=== PATIENT | female | born 1955 | race Caucasian/White ===

== ENCOUNTER → 2017-11-03 08:36 | Outpatient (REF) | payer MEDICARE, SELFPAY ==
[2017-11-03 09:12] LABS: Add Manual Diff / Slide Review NO; Basophils Percent Auto 0.3 % (0-2); Eosinophils Percent Auto 1.1 % (2-4); Hemoglobin 10.7 g/dL (12.0-16.0); Lymphocytes Percent Auto 19.1 % (25-40); Mean Corpuscular HGB Conc 32.4 % (30-36); Mean Corpuscular Hemoglobin 26.5 PG (26-34); Mean Corpuscular Volume 81.7 fL (80-100); Monocytes Percent Auto 6.7 % (3-14); Neutrophils Absolute Auto 6500 /uL (3000-5900); Neutrophils Percent Auto 72.8 % (50-75); Platelet Count 322 X10^3/uL (150-400); Red Blood Cell Count 4.04 X10^6/uL (4.0-5.2); Red Cell Distribution Width 22.2 % (11.6-14.8); White Blood Cell Count 8.9 X10^3/uL (4.5-11.0)
[2017-11-03 09:19] LABS: Hemoglobin A1C% w Est Avg Glu 5.7 % (4.0-6.0)
[2017-11-03 09:37] LABS: Alanine Aminotransferase 20 IU/L (9-52); Albumin Globulin Ratio 1.2 (1.0-2.8); Alkaline Phosphatase 84 U/L (38-126); Aspartate Aminotransferase 23 IU/L (14-36); BUN Creatinine Ratio 36.7 (6-22); Bilirubin Total 0.5 mg/dL (0.2-1.3); Calcium 9.9 mg/dL (8.4-10.2); Estimated Glomerular Filt Rate > 60.0 mL/min (>60); Globulin 3.3 g/dL (1.7-4.1); Glucose 99 mg/dL (80-110); HEMOLYSIS < 15 (0-50); Potassium 4.4 mmol/L (3.4-5.1); Sodium 141 mmol/L (137-145); Total Protein 7.3 g/dL (6.3-8.2)
[2017-11-03 09:40] LABS: Anisocytosis 2+; Hypochromasia 1+
== END ==
LOC: LAB 08:36
PROVIDERS: Visit Provider Nurse Practitioner Family
DX: E11.9 Type 2 diabetes mellitus without complications (principal); F41.9 Anxiety disorder, unspecified
CPT/HCPCS: 36415; 80053; 83036; 85025

== ENCOUNTER → 2017-12-27 14:13 | Outpatient (CLI) | payer MEDICARE, SELFPAY ==
[2017-12-27 15:05] LABS: Hematocrit 40.9 % (36-46); Mean Corpuscular HGB Conc 31.9 % (30-36); Mean Corpuscular Hemoglobin 27.8 PG (26-34); Mean Corpuscular Volume 87.2 fL (80-100); Platelet Count 325 X10^3/uL (150-400); Red Blood Cell Count 4.69 X10^6/uL (4.0-5.2); Red Cell Distribution Width 19.8 % (11.6-14.8); White Blood Cell Count 15.4 X10^3/uL (4.5-11.0)
[2017-12-27 15:37] LABS: Alanine Aminotransferase 36 IU/L (9-52); Albumin 4.6 g/dL (3.5-5.0); Albumin Globulin Ratio 1.4 (1.0-2.8); Alkaline Phosphatase 112 U/L (38-126); Aspartate Aminotransferase 32 IU/L (14-36); BUN Creatinine Ratio 35.7 (6-22); Bilirubin Total 0.8 mg/dL (0.2-1.3); Bilirubin Unconjugated 0.5 mg/dL (0.0-1.1); Blood Urea Nitrogen 25 mg/dL (7-17); Calcium 10.3 mg/dL (8.4-10.2); Carbon Dioxide 36 mmol/L (22-32); Chloride 95 mmol/L (98-107); Estimated Glomerular Filt Rate > 60.0 mL/min (>60); Globulin 3.3 g/dL (1.7-4.1); Glucose 126 mg/dL (80-110); HEMOLYSIS < 15 (0-50); Sodium 139 mmol/L (137-145); Total Protein 7.9 g/dL (6.3-8.2)
[2017-12-27 16:05] LABS: Anisocytosis 2+; Neutrophils Absolute Manual 13398 /uL (3000-5900); Total Cells Counted 100
[2017-12-27 16:08] LABS: Carcinoembryonic Antigen 2.5 ng/mL (0.1-3.0)
== END ==
PROVIDERS: PCP Registered Nurse; Visit Provider Surgery
DX: C18.9 Malignant neoplasm of colon, unspecified (principal)
CPT/HCPCS: 36415; 80048; 80076; 82378; 85025

== ENCOUNTER → 2018-01-05 07:49 | Outpatient (CLI) | payer MEDICARE, SELFPAY | PROVIDERS: PCP Registered Nurse; Visit Provider Surgery | DX: C18.9 Malignant neoplasm of colon, unspecified (principal); Z53.9 Procedure and treatment not carried out, unspecified reason ==

== ENCOUNTER → 2018-01-19 07:55 | Outpatient (REF) | payer MEDICARE, SELFPAY ==
[2018-01-19 09:15] LABS: Add Manual Diff / Slide Review NO; Basophils Percent Auto 0.4 % (0-2); Eosinophils Percent Auto 1.2 % (2-4); Hematocrit 38.5 % (36-46); Hemoglobin 12.7 g/dL (12.0-16.0); Lymphocytes Percent Auto 18.7 % (25-40); Mean Corpuscular Hemoglobin 29.5 PG (26-34); Mean Corpuscular Volume 89.6 fL (80-100); Monocytes Percent Auto 6.5 % (3-14); Neutrophils Absolute Auto 7400 /uL (3000-5900); Neutrophils Percent Auto 73.2 % (50-75); Platelet Count 203 X10^3/uL (150-400); Red Blood Cell Count 4.29 X10^6/uL (4.0-5.2); Red Cell Distribution Width 19.6 % (11.6-14.8); White Blood Cell Count 10.1 X10^3/uL (4.5-11.0)
== END ==
LOC: LAB 07:55
PROVIDERS: PCP Registered Nurse; Visit Provider Nurse Practitioner Family
DX: D72.829 Elevated white blood cell count, unspecified (principal)
CPT/HCPCS: 36415; 85025

== ENCOUNTER → 2018-01-20 16:28 | Outpatient (CLI) | payer MEDICARE, SELFPAY ==
--- NOTE | 2018-01-20 16:31 | DI.RAD.S_ITS ---
PROCEDURE: XR CHEST 2V INDICATIONS: COUGH TECHNIQUE: 2 views of the chest were acquired. COMPARISON: None. FINDINGS: Surgical changes and devices: None. Lungs and pleura: No pleural effusions or pneumothorax. Lungs are clear. Mediastinum: Mediastinal contours are normal. Heart size is normal. Tortuous aorta. Bones and chest wall: No suspicious bony abnormalities. Marked thoracolumbar scoliosis with right lateral fixation through the lumbosacral junction. Severe glenohumeral arthritis bilaterally. Soft tissues appear unremarkable. IMPRESSION: 1. No acute cardiopulmonary abnormality. Source of cough not seen. 2. Severe osteoarthritis both shoulders. Scoliosis with postoperative changes Dictated by: Rogers Hawley M.D. on 01/20/2018 at 17:02 Approved by: Rogers Hawley M.D. on 01/20/2018 at 17:03
== END ==
PROVIDERS: PCP Registered Nurse; Visit Provider Registered Nurse
DX: M19.012 Primary osteoarthritis, left shoulder (principal); M19.011 Primary osteoarthritis, right shoulder; M41.85 Other forms of scoliosis, thoracolumbar region; R05 Cough
CPT/HCPCS: 71046

== ENCOUNTER 2018-02-03 01:27 | Emergency (ER) | payer MEDICARE, SELFPAY ==
[2018-02-03 01:40] VITALS: BP 101/44; PULSE 78; RESP 17; TEMP 36.6; O2SAT 96
--- NOTE | 2018-02-03 02:28 | DI.RAD.S_ITS ---
PROCEDURE: XR CHEST 1V INDICATIONS: weakness TECHNIQUE: One view of the chest was acquired. COMPARISON: [facility], CR, XR CHEST 2V, 01/20/2018, 16:23. FINDINGS: Surgical changes and devices: Thoracolumbar spine fusion. Lungs and pleura: No pleural effusions or pneumothorax. Lungs are clear. Mediastinum: Mediastinal contours appear normal. Heart size is normal. Bones and chest wall: There is scoliosis. Postsurgical changes are seen in thoracolumbar spine. No suspicious bony lesions. Overlying soft tissues appear unremarkable. IMPRESSION: No acute cardiopulmonary disease. Dictated by: Jero Maza M.D. on 02/03/2018 at 8:56 Approved by: Jero Maza M.D. on 02/03/2018 at 8:57
[2018-02-03 03:05] LABS: Add Manual Diff / Slide Review NO; Basophils Percent Auto 0.4 % (0-2); Eosinophils Percent Auto 0.5 % (2-4); Hemoglobin 12.7 g/dL (12.0-16.0); Lymphocytes Percent Auto 14.7 % (25-40); Mean Corpuscular HGB Conc 32.5 % (30-36); Mean Corpuscular Volume 89.3 fL (80-100); Monocytes Percent Auto 6.3 % (3-14); Neutrophils Absolute Auto 8800 /uL (3000-5900); Neutrophils Percent Auto 78.1 % (50-75); Platelet Count 336 X10^3/uL (150-400); Red Blood Cell Count 4.37 X10^6/uL (4.0-5.2); White Blood Cell Count 11.2 X10^3/uL (4.5-11.0)
--- NOTE | 2018-02-03 03:13 | ED.NEUROSD ---
HPI - Neuro Symptoms/Deficit General Chief Complaint: Altered Mental Status Stated Complaint: VISIBLE MENTAL AND PHYSICAL CHANGES Time Seen by Provider: 02/03/18 01:34 Source: patient Mode of arrival: EMS Limitations: no limitations History of Present Illness HPI Narrative: Patient presents to the emergency department at the request of her halfway due to mental status changes this morning. For some reason they attempted to wake her up and she was unarousable initially and eventually upon wakening was speaking nonsensically and not following commands. By the time she arrived here she was at her baseline and has no complaints. She was started on a new medication last night, Lyrica, but is otherwise been well. She denies any chest pain or shortness of breath. She has no headache or stroke-like symptoms such as blurred vision or new weakness Related Data Allergies Allergy/AdvReac Type Severity Reaction Status Date / Time sulfabenzamide Allergy Verified 12/27/17 13:37 Review of Systems Review of Systems All systems reviewed & are unremarkable except as noted in HPI and below Constitutional Denies chills, Denies fever(s), Denies lethargy and Denies weakness Eyes Denies change in vision, Denies eye discharge, Denies irritation and Denies loss of vision ENT Ears, Nose, Mouth, and Throat: Denies change in voice, Denies neck pain and Denies sore throat Cardiovascular Denies chest pain, Denies irregular heart rhythm, Denies lightheadedness, Denies palpitations, Denies dyspnea, Denies dyspnea on exertion and Denies orthopnea Respiratory Denies cough, Denies dyspnea, Denies dyspnea on exertion and Denies wheezing Gastrointestinal Gastrointestinal: Denies abdominal pain, Denies change in bowel habits, Denies diarrhea, Denies nausea and Denies vomiting Genitourinary Denies hematuria, Denies flank pain, Denies urinary incontinence and Denies urinary urgency Musculoskeletal Denies neck pain Integumentary/Breasts Denies pruritus, Denies erythema, Denies rash and Denies wounds Neurologic Denies confusion, Denies loss of vision and Denies weakness Psychiatric Denies anxiety, Denies confusion, Denies depression, Denies homicidal ideation and Denies suicidal ideation Endocrine Denies palpitations Hematologic/Lymphatic Denies easy bruising Allergic/Immunologic Denies wheezing [facility] Medical History Arthritis of knee (Chronic) Back pain (Chronic) Scoliosis (Chronic) Social History housing: assisted living facility Smoking Status: Unknown if ever smoked Exam Narrative Exam Narrative: Pleasant 62F is awake and alert, but confused about location. Initial Vital Signs Initial Vital Signs: Vital Signs Temperature 97.8 F 02/03/18 01:40 Pulse Rate 78 02/03/18 01:40 Respiratory Rate 17 02/03/18 01:40 Blood Pressure 101/44 L 02/03/18 01:40 Pulse Oximetry 96 02/03/18 01:40 Const General: cooperative and comfortable Nutritional Appearance: well nourished Orientation: alert, awake, oriented to person, oriented to time and confused HENMT Head: normocephalic and atraumatic Ears: external ears normal and TM's normal bilaterally Nose: external nose normal and No nasal discharge Face and sinus: sinuses nontender, face symmetric, no sinus tenderness and No dry mucous membranes Mouth: oral mucosae normal and moist mucous membranes Teeth and gingiva: poor dentition Throat: tonsils normal and uvula midline Eyes General: appearance normal, both eyes and all related structures Eyelids: eyelids normal Conjunctivae: conjunctivae normal Sclera: sclerae normal Pupils: PERRL EOM: EOM intact bilaterally Neck Neck: normal visual inspection, trachea midline, No lymphadenopathy, No midline deformity and No JVD Lymphatic: No lymphedema Chest Chest: normal inspection of the chest Resp Effort & Inspection: normal respiratory effort, able to speak in complete sentences, no respiratory distress and no use of accessory muscles Auscultation: clear to auscultation bilaterally, no rales, no rhonchi and no wheezes Cardio Rate: regular rate Rhythm: regular rhythm Heart Sounds: no click, no gallops, no murmurs and no rubs Pulses: normal peripheral pulses GI Inspection: non-distended Palpation: soft, no hepatosplenomegaly, No guarding, No pulsatile mass and No tender Auscultation: normal bowel sounds Back/Spine/Pelvis Back: No CVA tenderness Cervical Spine: cervical ROM normal and No pain with cervical ROM Thoracic/Lumbar Spine: thoracic and lumbar spine normal to inspection Skin General: no rashes or lesions noted, No jaundice and No petechiae Neuro General: alert and awake Speech: speech normal Other: 4/5 strength in RUE, RLE which patient states is chronic Extrem General: full ROM, no clubbing, cyanosis or edema, no pedal edema and no calf tenderness Psych Appearance: disheveled Mental Status: mental status grossly normal Attitude: cooperative Thought Content: normal and suicidality Judgment: judgment good Course Orders Ordered: ED Orders 02/03/18 02:28 XR chest 1V Stat 02/03/18 02:48 Basic Metabolic Panel Stat Complete Blood Count AUTO DIFF Stat Procalcitonin Stat 02/03/18 03:35 CT head/brain wo con Stat Vital Signs - 8 hr 02/03/18 01:40 02/03/18 04:59 Temperature 97.8 F 97.8 F Pulse Rate 78 92 H Respiratory Rate 17 16 Blood Pressure 101/44 L Pulse Oximetry 96 MDM - Neuro Symptoms/Deficit Medical Records Attestation: I reviewed the patient's medical records. Lab Data Result diagrams: 02/03/18 02:48 02/03/18 02:48 Lab Results 02/03/18 02/03/18 02/03/18 Range/Units 02:48 02:48 02:48 WBC 11.2 H (4.5-11.0) X10^3/uL RBC 4.37 (4.0-5.2) X10^6/uL Hgb 12.7 (12.0-16.0) g/dL Hct 39.0 (36-46) % MCV 89.3 (80-100) fL MCH 29.0 (26-34) PG MCHC 32.5 (30-36) % RDW 18.0 H (11.6-14.8) % Plt Count 336 (150-400) X10^3/uL Neut % (Auto) 78.1 H (50-75) % Lymph % (Auto) 14.7 L (25-40) % [place] % (Auto) 6.3 (3-14) % Eos % (Auto) 0.5 L (2-4) % Baso % (Auto) 0.4 (0-2) % Neut # (Auto) 8800 H (4901-1639) /uL Sodium 139 (137-145) mmol/L Potassium 4.7 (3.4-5.1) mmol/L Chloride 95 L (98-107) mmol/L Carbon Dioxide 34 H (22-32) mmol/L BUN 20 H (7-17) mg/dL Creatinine 0.70 (0.52-1.04) mg/dL Estimated GFR > 60.0 (>60) mL/min BUN/Creatinine Ratio 28.6 H (6-22) Glucose 128 H (80-110) mg/dL Calcium 9.3 (8.4-10.2) mg/dL Procalcitonin < 0.05 (<0.5) ng/mL MDM Narrative Medical decision making narrative: Patient is had returned to her apparent baseline by the arrival at our department. She was administered a new medication and took her 1st dose last night which seems a likely contributor her. Of confusion upon waking. Discharge Plan Departure Patient Disposition: Home Clinical Impression: Episode of unresponsiveness Instructions: Taking Prescription Medications Activity Restrictions/Additional Instructions: *You have been diagnosed with [ unresponsive episode, resolved ] *What to do: * continues to take medications as directed *Follow up with your primary care provider in 2-3 days, call for an appointment. Let them know you were seen in the Emergency Department and that we ask that you be seen in follow up *Return to ER if you should have any new, worsening or concerning symptoms
[2018-02-03 03:32] LABS: BUN Creatinine Ratio 28.6 (6-22); Blood Urea Nitrogen 20 mg/dL (7-17); Calcium 9.3 mg/dL (8.4-10.2); Carbon Dioxide 34 mmol/L (22-32); Chloride 95 mmol/L (98-107); Estimated Glomerular Filt Rate > 60.0 mL/min (>60); Glucose 128 mg/dL (80-110); Sodium 139 mmol/L (137-145)
--- NOTE | 2018-02-03 03:35 | DI.CT.S_ITS ---
PROCEDURE: CT HEAD/BRAIN WO CON INDICATIONS: right upper and lower extremety weakness TECHNIQUE: Noncontrast 4.5 mm thick angled axial sections acquired from the foramen magnum to the vertex, with coronal and sagittal reformats. For radiation dose reduction, the following was used: automated exposure control, adjustment of mA and/or kV according to patient size. COMPARISON: None. FINDINGS: Image quality: Excellent. CSF spaces: Basal cisterns are patent. No extra-axial fluid collections. The ventricles are symmetric in size and shape. Brain: No intracranial bleeds or masses. There is cerebral volume loss for age, with resultant ventricular and sulcal prominence. There are periventricular and deep white matter chronic small vessel ischemic changes. 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 Old left putamen lacunar infarct. There is intracranial internal carotid artery atherosclerosis. Skull and face: Calvarium and visualized facial bones appear intact, without suspicious lesions. Sinuses: Visualized sinuses and mastoids are clear. IMPRESSION: No acute intracranial disease process. Dictated by: Emily Benedict MD, PhD on 02/03/2018 at 7:06 Approved by: Emily Benedict MD, PhD on 02/03/2018 at 7:08
[2018-02-03 03:37] LABS: HEMOLYSIS 74 (0-50)
[2018-02-03 03:38] LABS: Potassium 4.7 mmol/L (3.4-5.1)
[2018-02-03 03:40] LABS: Procalcitonin < 0.05 ng/mL (<0.5)
[2018-02-03 04:59] VITALS: PULSE 92; RESP 16; TEMP 36.6
[2018-02-03 05:00] VITALS: BP 109/73; PULSE 79; RESP 17; O2SAT 99
[2018-02-03 06:38] LABS: RBC Urine 0-1/HPF (0-5/HPF); WBC Urine 5-10/HPF (0-5/HPF)
[2018-02-03 06:39] LABS: Bacteria Urine Few (2-10); Hyaline Casts Urine 0-1/LPF; Mucus Urine 1+ (Negative); Squamous Epithelial Cell Urine 1-5 /HPF
[2018-02-03 06:40] LABS: Culture Indicated Urine Specimen Cultured
[2018-02-03] MEDS: NITROFURANTOIN 100MG PREPACK 1 BOTTLE MISC (07:02)
== END 2018-02-03 07:09 | disposition home or self-care (01) ==
PROVIDERS: Emergency Provider Emergency Medicine; PCP Registered Nurse
DX: R41.89 Other symptoms and signs involving cognitive functions and awareness (principal)
CPT/HCPCS: 36591; 70450; 71045; 80048; 81003; 81015; 84145; 85025; 87086; 99282; 99284

== ENCOUNTER → 2018-02-16 09:39 | Outpatient (REF) | payer MEDICARE, SELFPAY ==
[2018-02-16 10:41] LABS: Add Manual Diff / Slide Review NO; Basophils Percent Auto 0.4 % (0-2); Eosinophils Percent Auto 1.1 % (2-4); Hematocrit 37.5 % (36-46); Hemoglobin 12.2 g/dL (12.0-16.0); Lymphocytes Percent Auto 24.7 % (25-40); Mean Corpuscular HGB Conc 32.5 % (30-36); Mean Corpuscular Hemoglobin 29.6 PG (26-34); Mean Corpuscular Volume 91.3 fL (80-100); Monocytes Percent Auto 7.6 % (3-14); Neutrophils Absolute Auto 4300 /uL (3000-5900); Neutrophils Percent Auto 66.2 % (50-75); Platelet Count 215 X10^3/uL (150-400); Red Blood Cell Count 4.11 X10^6/uL (4.0-5.2); Red Cell Distribution Width 16.8 % (11.6-14.8); White Blood Cell Count 6.4 X10^3/uL (4.5-11.0)
== END ==
LOC: LAB 09:39
PROVIDERS: PCP Registered Nurse; Visit Provider Nurse Practitioner Family
DX: D72.829 Elevated white blood cell count, unspecified (principal)
CPT/HCPCS: 36415; 85025

== ENCOUNTER 2018-03-14 10:42 | Inpatient (IN) | payer MEDICARE, OTHER, SELFPAY ==
[2018-03-14] VITALS (7 sets, daily range): BP systolic 87–127; BP diastolic 56–79; PULSE 58–70; RESP 15–27; TEMP 36.2–36.3; O2SAT 89–96; BMI 25.9
--- NOTE | 2018-03-14 11:22 | DI.RAD.S_ITS ---
PROCEDURE: XR CHEST 1V INDICATIONS: SHORTNESS OF BREATH TECHNIQUE: One view of the chest was acquired. COMPARISON: [facility], CR, XR CHEST 1V, 02/03/2018, 2:32. FINDINGS: Surgical changes and devices: Surgical changes of the thoracolumbar spine are noted. Lungs and pleura: No pleural effusions or pneumothorax. Lungs are clear. Mediastinum: Mediastinal contours appear normal. Heart size is normal. Bones and chest wall: No suspicious bony lesions. There is prominent levoconvex curvature of the thoracic spine.degenerative changes of the bilateral shoulders and spine are not adequately characterized. Overlying soft tissues appear unremarkable. IMPRESSION: Stable chest. No acute cardiopulmonary process is evident. Dictated by: Ignacio An M.D. on 03/14/2018 at 10:48 Approved by: Ignacio An M.D. on 03/14/2018 at 10:55
--- NOTE | 2018-03-14 11:33 | ED_ITS ---
HPI - Weakness General Chief complaint: Weakness Stated complaint: Shortness breath, confusion, low oxygen Time Seen by Provider: 03/14/18 11:15 Source: patient Mode of arrival: wheelchair History of Present Illness HPI Narrative: Patient is a 63-year-old female presenting with increasing shortness of breath. She resides at [facility] facility they state that her oxygen level was not above 81%. She is 89% here on room air. She says she has had shortness of breath possibly the last week she denies any cough she has some inside ?pain on the right side which she cannot describe. No abdominal pain no nausea or vomiting. She has not had fever or chills. She overall feels like over the last week he has been weak and tired. According to her sister she has had altered mental status ongoing for some time and it does progressively seem to be getting worse. Her sister is not currently here but I have spoken to her on the phone. MD Complaint: generalized weakness Related Data Home Medications Medication Instructions Recorded Confirmed Saccharomyces boulardii [Florastor] 250 mg PO BID 03/14/18 03/14/18 acetaminophen 650 mg PO Q6H PRN 03/14/18 03/14/18 acetaminophen-codeine 1 tab PO TID PRN 03/14/18 03/14/18 aspirin 1 tab PO DAILY 03/14/18 03/14/18 atorvastatin 40 mg PO QPM 03/14/18 03/14/18 buspirone 15 mg PO TID 03/14/18 03/14/18 lidocaine 2 patch TOPICAL DAILY 03/14/18 03/14/18 lorazepam 1 tab PO Q6H 03/14/18 03/14/18 magnesium hydroxide [Milk of 30 ml PO DAILY 03/14/18 03/14/18 Magnesia] melatonin 3 mg PO BEDTIME PRN 03/14/18 03/14/18 metoprolol succinate 25 mg PO DAILY 03/14/18 03/14/18 multivitamin 1 tab PO DAILY 03/14/18 03/14/18 nystatin 1 applic TOPICAL BID 03/14/18 03/14/18 paroxetine HCl 10 mg PO DAILY 03/14/18 03/14/18 pregabalin [Lyrica] 75 mg PO BID 03/14/18 03/14/18 sennosides [senna] 8.6 mg PO BEDTIME 03/14/18 03/14/18 tizanidine 4 mg PO Q6H PRN 03/14/18 03/14/18 trazodone 100 mg PO BEDTIME PRN 03/14/18 03/14/18 Allergies Allergy/AdvReac Type Severity Reaction Status Date / Time sulfabenzamide Allergy Verified 03/14/18 10:50 Review of Systems Review of Systems All systems reviewed & are unremarkable except as noted in HPI and below Constitutional Denies chills, Denies fever(s), Denies lethargy and Reports weakness Cardiovascular Reports chest pain Respiratory Reports as per HPI Gastrointestinal Gastrointestinal: Denies abdominal pain, Denies change in bowel habits, Denies diarrhea, Denies nausea and Denies vomiting Genitourinary Denies hematuria, Denies flank pain, Denies urinary incontinence and Denies urinary urgency Musculoskeletal Denies back pain, Denies muscle weakness, Denies numbness and Denies tingling Integumentary/Breasts Denies pruritus, Denies erythema, Denies rash and Denies wounds Neurologic Denies numbness, Denies tingling and Reports weakness [facility] Social History housing: assisted living facility Smoking Status: Unknown if ever smoked Exam Initial Vital Signs Initial Vital Signs: Vital Signs Temperature 97.1 F L 03/14/18 10:51 Pulse Rate 63 03/14/18 10:51 Respiratory Rate 15 03/14/18 10:51 Blood Pressure 127/79 03/14/18 10:51 Pulse Oximetry 89 L 03/14/18 10:51 Const General: cooperative, comfortable and ill appearing (Chronically ill) Nutritional Appearance: average body habitus Orientation: alert, awake and oriented x3 HENMT Head: normal to inspection and normocephalic Nose: external nose normal Eyes General: appearance normal, both eyes and all related structures Neck Neck: normal visual inspection, trachea midline, No lymphadenopathy, No midline deformity and No JVD Lymphatic: No lymphedema Resp Effort & Inspection: normal respiratory effort, able to speak in complete sentences, no respiratory distress and no use of accessory muscles Auscultation: clear to auscultation bilaterally, no rales, no rhonchi and no wheezes Cardio Rate: regular rate Rhythm: regular rhythm Heart Sounds: no click, no gallops, no murmurs and no rubs Pulses: normal peripheral pulses Skin General: no rashes or lesions noted, No jaundice and No petechiae Neuro General: alert, awake and oriented x3 Cranial Nerves: CN's II-XI intact bilaterally and other (Right-sided facial droop, old her sister) Course Orders Ordered: ED Orders 03/14/18 11:15 Urine Culture Stat Urine Microscopic Stat 03/14/18 11:21 Consult to Respiratory Therapy Evaluate & Treat 03/14/18 11:22 XR chest 1V Stat 03/14/18 11:25 EKG-12 Lead Stat 03/14/18 11:45 B Type Natriuretic Peptide Stat Basic Metabolic Panel Stat Complete Blood Count AUTO DIFF Stat D Dimer Stat Lactate (Lactic Acid) Stat Procalcitonin Stat Troponin & CK Cardiac Panel Stat 03/14/18 12:25 Blood Culture Stat 03/14/18 12:56 CT angio chest PE protocol Stat 03/14/18 13:39 Arterial Blood Gas Stat Sodium Chloride (Normal Saline 0.9%) 1,000 mls @ 125 mls/hr IV CONT FIDELINA Last Admin: 03/14/18 15:23 Dose: 125 mls/hr Ceftriaxone Sodium/Dextrose (Rocephin) 1 gm in 50 mls @ 100 mls/hr IV NOW ONE Stop: 03/14/18 16:17 Ondansetron HCl (Zofran) 4 mg IV Q4HR PRN PRN Reason: Nausea And Vomiting Vital Signs - 8 hr 03/14/18 10:51 03/14/18 10:56 03/14/18 12:29 Temperature 97.1 F L Pulse Rate 63 62 Respiratory Rate 15 17 Blood Pressure 127/79 Blood Pressure [Right Arm] 97/66 Pulse Oximetry 89 L 96 96 03/14/18 14:01 03/14/18 14:57 03/14/18 15:47 Temperature Pulse Rate 60 70 58 L Respiratory Rate 15 27 H 16 Blood Pressure Blood Pressure [Right Arm] 87/63 L 100/69 114/71 Pulse Oximetry 92 92 96 MDM - Weakness Lab Data Attestation: I reviewed the patient's lab results. Result diagrams: 03/14/18 11:45 03/14/18 11:45 Lab Results 03/14/18 03/14/18 03/14/18 Range/Units 11:15 11:45 11:45 WBC 8.7 (4.5-11.0) X10^3/uL RBC 4.30 (4.0-5.2) X10^6/uL Hgb 12.9 (12.0-16.0) g/dL Hct 39.4 (36-46) % MCV 91.6 (80-100) fL MCH 30.0 (26-34) PG MCHC 32.7 (30-36) % RDW 15.9 H (11.6-14.8) % Plt Count 240 (150-400) X10^3/uL Neut % (Auto) 73.8 (50-75) % Lymph % (Auto) 18.9 L (25-40) % [place] % (Auto) 6.0 (3-14) % Eos % (Auto) 1.0 L (2-4) % Baso % (Auto) 0.3 (0-2) % Neut # (Auto) 6400 H (8630-7863) /uL D-Dimer (<230) ng/mL ABG pH (7.35-7.45) ABG pCO2 (35-45) mmHg ABG pO2 (80-105) mmHg ABG HCO3 (23-27) mmol/L ABG Total CO2 (23-27) mmol/L ABG O2 Saturation (95-100) % ABG Base Excess (-2-3) mmol/L FiO2 Sodium 144 (137-145) mmol/L Potassium 5.0 (3.4-5.1) mmol/L Chloride 96 L (98-107) mmol/L Carbon Dioxide 41 H* (22-32) mmol/L BUN 17 (7-17) mg/dL Creatinine 0.60 (0.52-1.04) mg/dL Estimated GFR > 60.0 (>60) mL/min BUN/Creatinine Ratio 28.3 H (6-22) Glucose 101 (80-110) mg/dL Lactate (0.7-2.1) mmol/L Calcium 9.3 (8.4-10.2) mg/dL Total Creatine Kinase 22 L (30-135) U/L CK-MB (CK-2) TNP CK-MB (CK-2) Rel Index TNP Troponin I 0.013 (0.01-0.034) ng/mL B-Natriuretic Peptide 167.0 H (<100) Procalcitonin (<0.5) ng/mL Urine RBC None seen (0-5/HPF) Urine WBC 1-5/hpf (0-5/HPF) Ur Squamous Epith Cells 0-1 /hpf Urine Bacteria Few (2-10) H (None) Ur Culture Indicated? Specimen cultured Micro UA Comment Not Reportable 03/14/18 03/14/18 03/14/18 Range/Units 11:45 11:45 11:45 WBC (4.5-11.0) X10^3/uL RBC (4.0-5.2) X10^6/uL Hgb (12.0-16.0) g/dL Hct (36-46) % MCV (80-100) fL MCH (26-34) PG MCHC (30-36) % RDW (11.6-14.8) % Plt Count (150-400) X10^3/uL Neut % (Auto) (50-75) % Lymph % (Auto) (25-40) % [place] % (Auto) (3-14) % Eos % (Auto) (2-4) % Baso % (Auto) (0-2) % Neut # (Auto) (0841-8422) /uL D-Dimer 349 H (<230) ng/mL ABG pH (7.35-7.45) ABG pCO2 (35-45) mmHg ABG pO2 (80-105) mmHg ABG HCO3 (23-27) mmol/L ABG Total CO2 (23-27) mmol/L ABG O2 Saturation (95-100) % ABG Base Excess (-2-3) mmol/L FiO2 Sodium (137-145) mmol/L Potassium (3.4-5.1) mmol/L Chloride (98-107) mmol/L Carbon Dioxide (22-32) mmol/L BUN (7-17) mg/dL Creatinine (0.52-1.04) mg/dL Estimated GFR (>60) mL/min BUN/Creatinine Ratio (6-22) Glucose (80-110) mg/dL Lactate 1.2 (0.7-2.1) mmol/L Calcium (8.4-10.2) mg/dL Total Creatine Kinase (30-135) U/L CK-MB (CK-2) CK-MB (CK-2) Rel Index Troponin I (0.01-0.034) ng/mL B-Natriuretic Peptide (<100) Procalcitonin < 0.05 (<0.5) ng/mL Urine RBC (0-5/HPF) Urine WBC (0-5/HPF) Ur Squamous Epith Cells Urine Bacteria (None) Ur Culture Indicated? Micro UA Comment 03/14/18 Range/Units 13:39 WBC (4.5-11.0) X10^3/uL RBC (4.0-5.2) X10^6/uL Hgb (12.0-16.0) g/dL Hct (36-46) % MCV (80-100) fL MCH (26-34) PG MCHC (30-36) % RDW (11.6-14.8) % Plt Count (150-400) X10^3/uL Neut % (Auto) (50-75) % Lymph % (Auto) (25-40) % [place] % (Auto) (3-14) % Eos % (Auto) (2-4) % Baso % (Auto) (0-2) % Neut # (Auto) (2061-5703) /uL D-Dimer (<230) ng/mL ABG pH 7.37 (7.35-7.45) ABG pCO2 70.4 H* (35-45) mmHg ABG pO2 61 L (80-105) mmHg ABG HCO3 41 H (23-27) mmol/L ABG Total CO2 43 H (23-27) mmol/L ABG O2 Saturation 89 L (95-100) % ABG Base Excess 15.0 H (-2-3) mmol/L FiO2 0.23 Sodium (137-145) mmol/L Potassium (3.4-5.1) mmol/L Chloride (98-107) mmol/L Carbon Dioxide (22-32) mmol/L BUN (7-17) mg/dL Creatinine (0.52-1.04) mg/dL Estimated GFR (>60) mL/min BUN/Creatinine Ratio (6-22) Glucose (80-110) mg/dL Lactate (0.7-2.1) mmol/L Calcium (8.4-10.2) mg/dL Total Creatine Kinase (30-135) U/L CK-MB (CK-2) CK-MB (CK-2) Rel Index Troponin I (0.01-0.034) ng/mL B-Natriuretic Peptide (<100) Procalcitonin (<0.5) ng/mL Urine RBC (0-5/HPF) Urine WBC (0-5/HPF) Ur Squamous Epith Cells Urine Bacteria (None) Ur Culture Indicated? Micro UA Comment Urine Dip Bedside Urine Glucose Negative Bedside Urine Bilirubin - Negative Bedside Urine Ketone - Negative Urine Specific [place] 1.015 Bedside Urine Occult Blood - Negative Bedside Urine pH 6.5 Bedside Urine Protein - Negative Bedside Urine Urobilinogen - Negative Bedside Urine Nitrite - Negative Bedside Urine Leukocytes + 70 Esterase ABG Data Attestation: I personally reviewed and interpreted this ABG as follows: MDM Narrative Medical decision making narrative: Bicarb on electrolytes is noted to be elevated today 41 previously was 34. She is requiring 1-2 L of oxygen. PE study is negative no pneumonia. ABG does confirm hypercapnia, pH is close to normal 7.37 I do think this is acute on chronic. Unknown what the reasoning is. Sister also states that she has been on oxygen in the past. I have tried to take patient off oxygen she desats quickly into the 70s and takes a while to come back. She will require home oxygen. Thought about BiPAP however patient is awake and alert and toxin she is mildly confused. UTI also noted-given 1 dose of Rocephin Discussion with Dr. Mccarthy. Patient will be placed in observation Discharge Plan Departure Patient Disposition: Admitted as Observation Clinical Impression: Acute on chronic respiratory failure with hypoxia and hypercapnia, UTI ( urinary tract infection) Admit Date/Time: 03/14/18 15:27 Admit Provider: Marco Mccarthy
[2018-03-14 11:43] LABS: RBC Urine None Seen (0-5/HPF)
[2018-03-14 11:59] LABS: Bacteria Urine Few (2-10); Culture Indicated Urine Specimen Cultured; Squamous Epithelial Cell Urine 0-1 /HPF; WBC Urine 1-5/HPF (0-5/HPF)
[2018-03-14 12:06] LABS: Add Manual Diff / Slide Review NO; Basophils Percent Auto 0.3 % (0-2); Hematocrit 39.4 % (36-46); Hemoglobin 12.9 g/dL (12.0-16.0); Lymphocytes Percent Auto 18.9 % (25-40); Mean Corpuscular HGB Conc 32.7 % (30-36); Mean Corpuscular Volume 91.6 fL (80-100); Neutrophils Absolute Auto 6400 /uL (3000-5900); Neutrophils Percent Auto 73.8 % (50-75); Platelet Count 240 X10^3/uL (150-400); Red Cell Distribution Width 15.9 % (11.6-14.8); White Blood Cell Count 8.7 X10^3/uL (4.5-11.0)
[2018-03-14 12:21] LABS: D Dimer 349 ng/mL (<230)
[2018-03-14 12:32] LABS: BUN Creatinine Ratio 28.3 (6-22); Blood Urea Nitrogen 17 mg/dL (7-17); Calcium 9.3 mg/dL (8.4-10.2); Chloride 96 mmol/L (98-107); Creatine Kinase 22 U/L (30-135); Estimated Glomerular Filt Rate > 60.0 mL/min (>60); Glucose 101 mg/dL (80-110); Lactate (Lactic Acid) 1.2 mmol/L (0.7-2.1); Sodium 144 mmol/L (137-145)
[2018-03-14 12:34] LABS: HEMOLYSIS 72 (0-50)
[2018-03-14 12:41] LABS: Troponin I 0.013 ng/mL (0.01-0.034)
[2018-03-14 12:45] LABS: Carbon Dioxide 41 mmol/L (22-32)
--- NOTE | 2018-03-14 12:56 | DI.CT.S_ITS ---
PROCEDURE: CT ANGIO CHEST PE PROTOCOL INDICATIONS: hypoxia TECHNIQUE: After the administration of intravenous contrast, 2 mm thick sections acquired from the pulmonary apices to the posterior costophrenic angles. 3-dimensional maximum intensity projection (MIP) coronal and sagittal reformats were then acquired through the thorax. For radiation dose reduction, the following was used: automated exposure control, adjustment of mA and/or kV according to patient size. COMPARISON: [facility], , XR CHEST 1V, 03/14/2018, 11:36. FINDINGS: Image quality: There is streak artifact seen associated with this patient's spinal fixation hardware. Pulmonary arteries: Pulmonary arteries are normal in size, and demonstrate no intraluminal filling defects to suggest central pulmonary embolism. Lungs and pleura: There is mild dependent atelectasis. There is a 3 mm right upper lobe pulmonary nodule seen, as on series 4 image 18. No pleural effusions or pneumothorax. Central and peripheral airways are patent. Mediastinum: Heart size is normal, without pericardial effusion. No mediastinal or hilar adenopathy. Thoracic aorta is normal in caliber and enhancement. Esophagus is normal in caliber, without hiatal hernia. Bones and chest wall: No suspicious bony lesions. Ribs and thoracic spine appear intact throughout. Thyroid gland demonstrates no significant CT abnormality. No axillary or supraclavicular adenopathy. Thoracolumbar fixation hardware is partially seen. S-shaped scoliotic curvature is seen. Bony degenerative changes are seen, particularly affecting the shoulders. Abdomen: Visualized upper abdominal solid organs appear normal in the early arterial phase of enhancement. IMPRESSION: Negative for pulmonary embolism. There is a 3 mm right upper lobe pulmonary nodule seen. For a nodule of this size, no specific imaging followup is recommended. However, attention should be paid to this nodule on any future followup study through the region. Incidental note is made of: Thoracolumbar fixation hardware S-shaped scoliotic curvature Focal prominent shoulder degenerative change. Dictated by: Vikas Stanley M.D. on 03/14/2018 at 12:09 Approved by: Vikas Stanley M.D. on 03/14/2018 at 12:12
[2018-03-14 13:19] LABS: Procalcitonin < 0.05 ng/mL (<0.5)
--- NOTE | 2018-03-14 14:01 | PC.NURSE ---
Doctor took patient off oxygen. Went to 77% on room air. Placed her on 4.5 L nasal cannula and she went back to 97% after approx 2-3 min of oxygen.
[2018-03-14 14:06] LABS: HCO3 ABG 41 mmol/L (23-27); PCO2 ABG 70.4 mmHg (35-45); PO2 ABG 61 mmHg (80-105); TCO2 ABG 43 mmol/L (23-27); pH ABG 7.37 (7.35-7.45)
[2018-03-14 14:07] LABS: Fractionated Inspired Oxygen 0.23; Oxygen Saturation ABG 89 % (95-100)
[2018-03-14] MEDS: SODIUM CHLORIDE 0.9% 1,000 ML 125 ML IV (15:23)
[2018-03-14] MEDS: CEFTRIAXONE 1 GM/50 ML FROZ.PIGGY IV (15:53)
--- NOTE | 2018-03-14 17:59 | P.HP_ITS ---
History of Present Illness Date Patient Seen: 03/14/18 Time Patient Seen: 17:44 Chief complaint: Shortness breath, confusion, low oxygen Narrative: Patient is a very pleasant 63 years of age female that resides at a local assisted living facility. Patient was brought to the emergency room with chief complaint of shortness of breath. Patient is a bit vague is as to how long she has been having this shortness of breath but appears to be over the last several days. Patient did know the year is 2007 and the executive vice president of sales is Ashish Doll. For the most part patient appears to be a reliable historian. No recent nausea no weakness to extremities that appear new. Patient does note that she has difficulty with ambulating due to inability to control her lower extremities. The ER physician notes patient with a blood gas with a pCO2 of 70. She was also hypoxemic. Fortunately 1 L of nasal cannula oxygen flow appeared to stabilize her readily in the ER. I was requested to admit the patient for further workup regarding her hypercapnic hypoxemic respiratory failure. Patient History Comment: Past medical history includes the following Patient is not normally on oxygen therapy in home setting. Patient does have history of sleep apnea on CPAP mask for the last 2-3 years. Patient with history of hypertensive encephalopathy. Most recent imaging of the brain with a CT in January 2018 notes multiple lacunar infarcts with vascular disease. Patient also with history of hypertension. Patient denies prior history of cancer Diabetes atherosclerotic heart disease myocardial infarction Past surgical history Back surgery about 10 years ago Social history Patient lives at assisted living facility for the past 1 month. Patient notes she is trying to sell her home and her sisters are helping her do so. Patient has no smoking history she is a nonalcoholic Family history patient notes her mother may have history of stroke. No history of cancer in the family. Family & Social History Tobacco & Substance use: Smoking Status Unknown if ever smoked Substance Use Type does not use Meds Home Medications Medication Instructions Recorded Confirmed Type Saccharomyces boulardii [Florastor] 250 mg PO BID 03/14/18 03/14/18 History acetaminophen 650 mg PO Q6H PRN 03/14/18 03/14/18 History acetaminophen-codeine 1 tab PO TID PRN 03/14/18 03/14/18 History aspirin 1 tab PO DAILY 03/14/18 03/14/18 History atorvastatin 40 mg PO QPM 03/14/18 03/14/18 History buspirone 15 mg PO TID 03/14/18 03/14/18 History lidocaine 2 patch TOPICAL DAILY 03/14/18 03/14/18 History lorazepam 1 tab PO Q6H 03/14/18 03/14/18 History magnesium hydroxide [Milk of 30 ml PO DAILY 03/14/18 03/14/18 History Magnesia] melatonin 3 mg PO BEDTIME PRN 03/14/18 03/14/18 History metoprolol succinate 25 mg PO DAILY 03/14/18 03/14/18 History multivitamin 1 tab PO DAILY 03/14/18 03/14/18 History nystatin 1 applic TOPICAL BID 03/14/18 03/14/18 History paroxetine HCl 10 mg PO DAILY 03/14/18 03/14/18 History pregabalin [Lyrica] 75 mg PO BID 03/14/18 03/14/18 History sennosides [senna] 8.6 mg PO BEDTIME 03/14/18 03/14/18 History tizanidine 4 mg PO Q6H PRN 03/14/18 03/14/18 History trazodone 100 mg PO BEDTIME PRN 03/14/18 03/14/18 History Allergies Allergy/AdvReac Type Severity Reaction Status Date / Time sulfabenzamide Allergy Verified 03/14/18 10:50 Review of Systems Review of Systems A 10 point system reviewed with the patient was negative except for the symptoms as described in HPI. Patient with recent shortness of breath sensation for the last several days. No recent fever or cough noted by the patient no recent nausea no diarrhea no constipation Exam Vital Signs (past 8 hours): - 03/14/18 10:51 03/14/18 10:56 03/14/18 12:29 Temperature 97.1 F L Pulse Rate 63 62 Respiratory Rate 15 17 Blood Pressure 127/79 Blood Pressure [Right Arm] 97/66 Pulse Oximetry 89 L 96 96 03/14/18 14:01 03/14/18 14:57 03/14/18 15:47 Temperature Pulse Rate 60 70 58 L Respiratory Rate 15 27 H 16 Blood Pressure Blood Pressure [Right Arm] 87/63 L 100/69 114/71 Pulse Oximetry 92 92 96 Oxygen Delivery Method Nasal Cannula Oxygen Flow Rate 2 Narrative Exam Narrative: General appearance patient has noted awake and alert and smiling in no apparent distress at rest Psychiatric patient is oriented to self and time she was not sure of the name of this hospital Skin no rashes or lesions are evident turgor normal nonjaundiced Eyes pupils are equal round and reactive to light Ears nose and throat hearing is grossly intact nose septum to midline no bleeding no oropharyngeal lesions are noted Respiratory fair breath sounds are noted bilateral with no obvious crackles or wheezing Cardiovascular a fairly prominent systolic murmur is best heard over the aortic valve with a radiation across the chest and into the carotids. Regular rate rhythm is noted +2 pulses noted to extremities GI fairly soft nontender positive bowel sounds no distention no bruits no guarding no pedal splenomegaly evident Neurologic patient with a weakness to lower extremity bilaterally. Dysarthric tardive dyskinesia like motion of the mouth region noted no tremors at rest noted Nor with motion Lymph nodes no lymphadenopathy to neck or axilla Musculoskeletal strength appears to be somewhat symmetric though diminished no clubbing is noted range of motion appears to be normal Objective Labs Result Diagrams: 03/14/18 11:45 03/14/18 11:45 Labs: Laboratory Results - last 24 hr 03/14/18 03/14/18 03/14/18 11:15 11:45 11:45 WBC 8.7 RBC 4.30 Hgb 12.9 Hct 39.4 MCV 91.6 MCH 30.0 MCHC 32.7 RDW 15.9 H Plt Count 240 Neut % (Auto) 73.8 Lymph % (Auto) 18.9 L [place] % (Auto) 6.0 Eos % (Auto) 1.0 L Baso % (Auto) 0.3 Neut # (Auto) 6400 H D-Dimer ABG pH ABG pCO2 ABG pO2 ABG HCO3 ABG Total CO2 ABG O2 Saturation ABG Base Excess FiO2 Sodium 144 Potassium 5.0 Chloride 96 L Carbon Dioxide 41 H* BUN 17 Creatinine 0.60 Estimated GFR > 60.0 BUN/Creatinine Ratio 28.3 H Glucose 101 Lactate Calcium 9.3 Total Creatine Kinase 22 L CK-MB (CK-2) TNP CK-MB (CK-2) Rel Index TNP Troponin I 0.013 B-Natriuretic Peptide 167.0 H Procalcitonin Urine RBC None seen Urine WBC 1-5/hpf Ur Squamous Epith Cells 0-1 /hpf Urine Bacteria Few (2-10) H Ur Culture Indicated? Specimen cultured Micro UA Comment Not Reportable 03/14/18 03/14/18 03/14/18 11:45 11:45 11:45 WBC RBC Hgb Hct MCV MCH MCHC RDW Plt Count Neut % (Auto) Lymph % (Auto) [place] % (Auto) Eos % (Auto) Baso % (Auto) Neut # (Auto) D-Dimer 349 H ABG pH ABG pCO2 ABG pO2 ABG HCO3 ABG Total CO2 ABG O2 Saturation ABG Base Excess FiO2 Sodium Potassium Chloride Carbon Dioxide BUN Creatinine Estimated GFR BUN/Creatinine Ratio Glucose Lactate 1.2 Calcium Total Creatine Kinase CK-MB (CK-2) CK-MB (CK-2) Rel Index Troponin I B-Natriuretic Peptide Procalcitonin < 0.05 Urine RBC Urine WBC Ur Squamous Epith Cells Urine Bacteria Ur Culture Indicated? Micro UA Comment 03/14/18 13:39 WBC RBC Hgb Hct MCV MCH MCHC RDW Plt Count Neut % (Auto) Lymph % (Auto) [place] % (Auto) Eos % (Auto) Baso % (Auto) Neut # (Auto) D-Dimer ABG pH 7.37 ABG pCO2 70.4 H* ABG pO2 61 L ABG HCO3 41 H ABG Total CO2 43 H ABG O2 Saturation 89 L ABG Base Excess 15.0 H FiO2 0.23 Sodium Potassium Chloride Carbon Dioxide BUN Creatinine Estimated GFR BUN/Creatinine Ratio Glucose Lactate Calcium Total Creatine Kinase CK-MB (CK-2) CK-MB (CK-2) Rel Index Troponin I B-Natriuretic Peptide Procalcitonin Urine RBC Urine WBC Ur Squamous Epith Cells Urine Bacteria Ur Culture Indicated? Micro UA Comment Assessment & Plan Plan: Assessment/Plan Narrative: Hypercapnic hypoxemic respiratory failure Note the lungs are fairly clear with no significant crackles suggestive for fibrotic lung disease. Patient is certainly not morbidly obese. Patient does have history of multiple strokes as evident on the CT from January 2018. I requested speech therapist to do a bedside swallow eval when next available Will provide oxygen at 1 liter/minute. Continue to monitor patient's progress Patient is admitted under observation Sleep apnea disorder Requested RT to set up for CPAP at 12 cm of water Sisters will try to bring in patient's CPAP mask from the assisted living Prominent systolic heart murmur I suspect this as a aortic valve stenosis with radiation into the carotids to as well as across the precordium History of multiple lacunar infarcts Patient with history of hypertensive encephalopathy. The lacunar infarcts likely related to uncontrolled hypertension over the years Requesting an MRI of the brain without contrast to further investigate Multiple antidepressives and antianxiety medications Will continue patient's medications she normally takes in the outpatient setting. It appears patient takes the Paxil in the morning. This is the most sedating of the SSRI class antidepressant. It should be taken in the evening instead of the morning. Buspar at 15 mg p.o. t.i.d. will be continued as tolerated along with the trazodone 100 mg at bedtime. Both of these are her usual doses Patient is wheelchair-bound Physical therapy and occupational therapy consult requested Awaiting results of the MRI the brain. Time Spent With Patient Time with patient: Greater than 35 minutes (60 min to admit the patient to hospital and review of records)
[2018-03-14] MEDS: SENNOSIDES 8.6 MG TABLET 17.2 MG PO (19:30)
--- NOTE | 2018-03-14 19:30 | RT ---
PT APPEARS COMFORTABLE ON HOME CPAP W/ 2 LPM BLEED-IN O2. PT IS APPROPRIATELY RESPONSIVE. O2 SAT NOTED AT 97%. RR = 14.
[2018-03-14] MEDS: ACIDOPHILUS/L.BULG/BIF.B/S.THERMOP TABLET 1 EACH PO (21:06)
[2018-03-14] MEDS: LORazepam 0.5 MG TABLET PO (21:06)
[2018-03-14] MEDS: ATORVASTATIN 20 MG TABLET 40 MG PO (21:07)
[2018-03-14] MEDS: BUSPIRONE 15 MG TABLET PO (21:07)
[2018-03-14] MEDS: PARoxetine 10 MG TABLET PO (21:08)
[2018-03-14] MEDS: PREGABALIN 75 MG CAPSULE PO (21:09)
[2018-03-14] MEDS: CODEINE/ACETAMINOPHEN 30/300 TABLET 1 TAB PO (21:40)
[2018-03-15] VITALS (14 sets, daily range): BP systolic 102–151; BP diastolic 65–75; PULSE 54–67; RESP 12–24; TEMP 36.6–36.9; O2SAT 95–99
--- NOTE | 2018-03-15 | DI.MRI.S_ITS ---
PROCEDURE: MR HEAD/BRAIN WO CON INDICATIONS: eval for acute/subacute CVA TECHNIQUE: Non-contrast axial T1 spin echo, axial T2 fast spin echo, sagittal and axial FLAIR, coronal T2 fast spin echo, axial gradient echo, axial diffusion and ADC through the brain. COMPARISON: [facility], CT, CT HEAD/BRAIN WO CON, 02/03/2018, 3:35. FINDINGS: Image quality: Excellent. CSF spaces: Ventricles appear symmetric in size and shape. Basal cisterns are patent. No extra-axial fluid collections. Brain: No intracranial bleeds or mass effects. There is cerebral volume loss for age. There are periventricular and deep white matter chronic small vessel ischemic changes. Brainstem appears normal. Diffusion-weighted images show no acute ischemic insults. No chronic ischemic insults. Normal intravascular flow voids are present. Skull and face: Calvarial bone marrow is normal in signal. Orbits are normal. Sinuses: Sinuses and mastoids are clear. IMPRESSION: 1. No acute intracranial process. No diffusion changes to indicate acute ischemia. 2. Mild atrophy and chronic microvascular ischemic changes. Dictated by: Mary Mccloud M.D. on 03/15/2018 at 12:17 Approved by: Mary Mccloud M.D. on 03/15/2018 at 12:20
[2018-03-15] MEDS: LORazepam 0.5 MG TABLET PO ×4 (02:26→20:50)
--- NOTE | 2018-03-15 03:55 | PC.NURSE ---
Has not slept since 2342. Continuously pulled off CPAP, O2 NC applied. Pulls off pulse oximetry monitor, reapplied. Confused and wants help to get on the plane, sats when allowed are in the 90's. Restless, incontinent of urine and up to bsc with 2 person assist, also tried bedpan.
[2018-03-15 05:36] LABS: Add Manual Diff / Slide Review NO; Basophils Percent Auto 0.2 % (0-2); Eosinophils Percent Auto 1.2 % (2-4); Hematocrit 38.7 % (36-46); Hemoglobin 12.7 g/dL (12.0-16.0); Lymphocytes Percent Auto 22.1 % (25-40); Mean Corpuscular HGB Conc 32.9 % (30-36); Mean Corpuscular Hemoglobin 29.8 PG (26-34); Mean Corpuscular Volume 90.7 fL (80-100); Monocytes Percent Auto 7.4 % (3-14); Neutrophils Absolute Auto 6100 /uL (3000-5900); Neutrophils Percent Auto 69.1 % (50-75); Platelet Count 226 X10^3/uL (150-400); Red Blood Cell Count 4.27 X10^6/uL (4.0-5.2); Red Cell Distribution Width 15.7 % (11.6-14.8); White Blood Cell Count 8.8 X10^3/uL (4.5-11.0)
[2018-03-15 05:43] LABS: Alanine Aminotransferase 17 IU/L (9-52); Albumin 3.7 g/dL (3.5-5.0); Albumin Globulin Ratio 1.2 (1.0-2.8); Alkaline Phosphatase 95 U/L (38-126); Aspartate Aminotransferase 21 IU/L (14-36); Bilirubin Total 0.5 mg/dL (0.2-1.3); Blood Urea Nitrogen 17 mg/dL (7-17); Calcium 9.4 mg/dL (8.4-10.2); Carbon Dioxide 39 mmol/L (22-32); Chloride 97 mmol/L (98-107); Estimated Glomerular Filt Rate > 60.0 mL/min (>60); Glucose 100 mg/dL (80-110); HEMOLYSIS < 15 (0-50); Potassium 4.3 mmol/L (3.4-5.1); Sodium 141 mmol/L (137-145); Total Protein 6.7 g/dL (6.3-8.2)
[2018-03-15 06:03] LABS: Hemoglobin A1C% w Est Avg Glu 6.2 % (4.0-6.0)
[2018-03-15] MEDS: PANTOPRAZOLE 20 MG TABLET PO (06:55)
--- NOTE | 2018-03-15 09:16 | CM.DANOTE ---
Discharge Planning/Care Management DCP: assessment: case received and went to room to meet with pt. Cautioned by SECONDARY SCHOOL PRINCIPAL that pt had been awake most of the night and was now sleeping. Found pt lying on back, eyes closed, breathing with a squeak sound. Pt lives at [facility] and thus spoke as per protocol with ERWIN Sanderson. She confirmed that pt was able to function with a one person assist, occassionally needs 2. She reports she has to be encouraged to do activity other than lie in bed and watch t.v. Pt does use a w/c when she is out of bed. Pt's sisters are reportedly her advocates. P: follow: at this point expect pt will return to [facility] if able/Maria E says she has been there a few months. Will confirm same with pt and/or her sisters. CM Discharge Assessment Start: 03/15/18 09:12 Freq: Status: Active Protocol: Document 03/15/18 09:12 ITV (Rec: 03/15/18 09:16 ITV [id number]) Discharge Planning Assessment Advance Directives? Yes Advance Directives on File Yes History Provided By Patient Medical Record Prior Living Arrangements Assisted Living Comment discussed PLF with [facility] ([facility]) DND Maria E: [phone] Type of transporation used prior to Relies on Others admit Facility Name Admitted From: [facility] Independent with ADL's No Is patient alert and oriented? unclear at this time Needs Assistance With Bathing Eating Grooming Meal Prep Toileting Managing Medications Home Chores / Shopping Comment feeds self but set up etc Caregiver for Another No Comment uses CPAP in home/[facility] settiing Whiteboard Updated in Patient Room with Yes name and ext. # of Striper Machine Review Status In Process Next Review Type Continued Stay Review
--- NOTE | 2018-03-15 09:28 | PT.IPTN ---
Current Diagnoses Sleep apnea, unspecified (03/14/18) Physical Therapy Treatment Note Notes Per RN, pt just fell asleep after not sleeping well all night. Pt is also getting an MRI some time around 11am today. PT will hold until the afternoon, anticipate a co- eval with OT after lunch.
[2018-03-15] MEDS: LIDOCAINE PATCH 1 EACH ADH..PATCH 2 EACH TOP (11:18)
[2018-03-15] MEDS: ENOXAPARIN 40 MG/0.4 ML SYRINGE SUBCUT (11:20)
[2018-03-15] MEDS: BUSPIRONE 15 MG TABLET PO ×3 (11:21→20:50)
[2018-03-15] MEDS: ACIDOPHILUS/L.BULG/BIF.B/S.THERMOP TABLET 1 EACH PO ×2 (11:21→20:51)
[2018-03-15] MEDS: ASPIRIN EC 81 MG TABLET PO (11:21)
[2018-03-15] MEDS: METOPROLOL ER 25 MG TABLET PO (11:22)
[2018-03-15] MEDS: PREGABALIN 75 MG CAPSULE PO ×2 (11:22→20:50)
[2018-03-15] MEDS: MULTIVITAMIN 1 TABLET 1 TAB PO (11:22)
[2018-03-15] MEDS: MAGNESIUM HYDROXIDE 30 ML UDC PO (11:23)
--- NOTE | 2018-03-15 12:00 | SLP.IPNOTE ---
HEALTH ANALYTICS CONSULTANT attempted to see patient x2 (0900 and 11:10) for evaluation. Patient unavailable both times. HEALTH ANALYTICS CONSULTANT will attempt to follow up. If not seen today, will assess tomorrow.
--- NOTE | 2018-03-15 13:30 | OT.IP.EVAL ---
Current Diagnoses Sleep apnea, unspecified (03/14/18) Past Medical History (Last Reviewed 02/03/18 @ 03:30 by Carlyle Rocha DO) Arthritis of knee (Chronic) Back pain (Chronic) Scoliosis (Chronic) Occupational Therapy Inpatient Evaluation/Re-Eval M1 PT/OT-IP Prior Functional Status Start: 03/15/18 09:27 Freq: NEEDED Status: Active Protocol: Document 03/15/18 13:40 RS (Rec: 03/15/18 14:01 RS [id number]) Medical Review Prior Functional Status Medical History Reviewed Yes Mobility and Gait has a walker but mostly just transfers bed>wc>toilet with assist from staff using a FWW. Social History Household Members none Living Arrangements Assisted Living Number of Floors (Floors) One Floor Number of Stairs To Enter/Railing? n/a Home Equipment Front Wheel Walker Manual Wheelchair Hospital Bed Additional Social History Comment Pt lives at [facility] where they provide assist with all transfers, and most self care tasks. . M2 OT-IP Current Condition Start: 03/15/18 15:09 Freq: Status: Active Protocol: Document 03/15/18 13:30 PJM (Rec: 03/15/18 15:35 PJ [id number]) Occupational Therapy Current Condition Current Condition Evaluation Date 03/15/18 Treatment Diagnosis decreased self care,transfer skills, s/p admit for UTI w/ hypoxia,confusion Diagnosis Onset Date 03/14/18 Post Operative Precautions Other Precautions fall risk, confusion, bed/ chair alarm, 2L O2 via NC M3 OT- IP Subjective and Pain Start: 03/15/18 15:09 Freq: Status: Active Protocol: Document 03/15/18 13:30 PJM (Rec: 03/15/18 15:35 PJ [id number]) OT- Subjective Occupational Therapy Visit Type Type Initial Evaluation Visit Start Time 12:44 Visit Stop Time 13:30 Total Visit Minutes 46 Notes co-eval with P.T. due to pt fatigue Occupational Therapy Visit Comments Patient/Caregiver Goals Pt did not verbalize goal this session due to confusion; oriented to self only OT Pain Assessment Pain When Pain Assessed After Treatment Pain Present Pain Present Denied Pain M4 OT- IP ADL's Start: 03/15/18 15:09 Freq: Status: Active Protocol: Document 03/15/18 13:30 PJM (Rec: 03/15/18 15:35 PJ [id number]) OT REP-[id number]-[id number] General Evaluation Self-Feeding Ability Independent Areas Needing Assistance Cutting Food Opening Containers Comments OT Self-Feeding Comments Pt requires meal tray set up. OT ADL-Grooming General Evaluation Grooming Ability Standby Assistance Minimal Assistance Areas Needing Assistance Combing/Brushing Hair Face Washing Comments OT Grooming Comments Pt SBA for face washing; min assist to brush back of hair due to decreased shoulder AROM OT ADL-Oral Care Comments Oral Care Comments to be assessed OT ADL-Dressing General Eval Upper Body Dressing Ability Moderate Assistance Lower Body Dressing Ability Moderate Assistance Areas Needing Assistance Underpants/Brief Comments OT Dressing Comments further assessment to follow; pt total assist to pull pants over hips, min assist to get over feet. OT ADL-Toileting General Evaluation Toileting Ability Total Assistance Areas Needing Assistance Manage Clothing Perform Perineal Hygiene Devices Toileting Assistive Devices Commode Comments OT Toileting Comments one person to stabilize pt with FWW in standing with 2nd person to assist with wiping OT ADL-Bathing Bathing Type Bathing Type Sponge Bath General Evaluation Bathing Ability Total Assistance M5 OT- IP IADL's Start: 03/15/18 15:09 Freq: Status: Active Protocol: Document 03/15/18 13:30 PJM (Rec: 03/15/18 15:35 [facility] [id number]) OT-Instrumental Activities of Daily Living Deficits IADL Deficits Identified Deficits Home Safety Awareness Awareness of Need for Assistance at Home Decreased Awareness Ability to Problem Solve Emergency Unable to Problem Solve Situations Medication Management Medication Management Caregiver Administers Money Management Money Management Caregiver Provides Assistance Meal Preparation Meal Preparation Caregiver Provides Assist Meal Preparation Comments all meals provided at [facility] Ceramic Maker Demonstrator Ceramic Maker Demonstrator Caregiver Provides Assist Ceramic Maker Demonstrator Comments pt lives at [facility] Driving Driving Caregiver Provides Assist Driving Comments pt no longer drives M6 OT- IP Functional Cognition Start: 03/15/18 15:09 Freq: Status: Active Protocol: Document 03/15/18 13:30 PJM (Rec: 03/15/18 15:35 [facility] [id number]) Cognitive Factors Limiting Selfcare Function Cognitive Ability Level of Alertness Confusional State Patient Orientation Name Age Attention Span Ability Capable of Focused Attention Ability to Follow Commands Able to Follow One Step Commands Memory Description Short Term Impaired Safety Awareness Decreased Recall of Precautions Problem Solving Ability Unable to Identify Errors Needs Assist to Identify Solutions Executive Function Ability Unable to Make Plans Unable to Organize Plans Unable to Remember Details Cognitive Comments Cognitive Assessment Comments Pt has significant cognitive deficits: oriented to self only this session with obvious short term memory deficits noted. OT- Vision and Hearing OT- Hearing Assessment OT- Hearing Assessment WFL OT- Vision Assessment Visual Acuity WFL Glasses All The Time Vision Assessment Comments Pt able to read 1/4 print and read wall clock accurately M7 OT- IP Mobility and Balance Start: 03/15/18 15:09 Freq: Status: Active Protocol: Document 03/15/18 13:30 PJM (Rec: 03/15/18 15:35 PJM [id number]) OT- Bed Mobility Assessment Rolling Type of Rolling Roll to Right Level of Assistance Moderate Assistance 2 Person Assistance Head of Bed Elevated Bedrails Supine to Sit Supine to Sit Assist Moderate Assistance 2 Person Assistance Head of Bed Elevated Bedrails Scooting Scooting to Edge of Bed Total Assistance 1 Person Assistance OT-Transfer Assessment Sit to and From Stand Sit to and from Stand Moderate Assistance 2 Person Assistance Transfers Transfer Ability Moderate Assistance 2 Person Assistance Technique Transfer Destination Bedside Commode Chair Transfer Technique Stand Step Pivot Devices Transfer Assistive Devices Gait Belt Front Wheeled Walker Comments Mobility Comments Pt needs assist with sit to stand and for controlled descent to chair. OT- Gait Assessment Comments Gait Ability Comments pt has not yet walked with P.T.; she uses w/c for mobility due to R>L knee pain/arthritis OT- Balance Assessment Sitting Balance and Reactions Static Sitting Balance Ability Fair Dynamic Sitting Balance Ability Fair Standing Balance and Reactions Static Standing Balance Ability Fair Dynamic Standing Balance Ability Fair M8 OT- IP Objective Assessments Start: 03/15/18 15:09 Freq: Status: Active Protocol: Document 03/15/18 13:30 PJM (Rec: 03/15/18 15:35 PJ [id number]) OT Gross Range of Motion Upper Extremity Range of Motion Assessment Left Impaired ROM Impairments B shoulder scaption limited to about 90 degrees by stiffness . BUE movements slow and deliberate with some subtle athetoid like movements noted. Distal AROM WFL. Pt has decreased isolated finger movements with multiple trigger fingers on L hand. OT Strength Upper Extremity Strength Assessment Within Functional Limits Shoulder B: 3+/5 Elbow B: 4/5 Wrist B: 4/5 Hand B: 4-/5 Hand Switchboard Clerk Strength Hand Dominance Right Comments Strength Comments No obvious focal weakness noted OT- Coordination Assessment Comments Coordination Comments Impaired by decreased isolated finger movement and L hand trigger fingers OT-Muscle Tone Assessment Muscle Tone WNL Yes OT Sensation Assessment Comments Summary Comments Pt detects lt touch in BUE's M9 OT- IP Assessment and Plan Start: 03/15/18 15:09 Freq: Status: Active Protocol: Document 03/15/18 13:30 PJM (Rec: 03/15/18 15:35 PJM [id number]) OT Summary Assessment and Plan Potential Rehabilitation Potential Good Analytic Complexity at Evaluation Moderate Summary OT Impairments Strength Balance Functional Cognition Functional Mobility Grooming Dressing Toileting Bathing Toilet Transfers Shower Transfers Assessment Summary Pt seen for moderate complexity assessment with emphasis on self care and functional mobility. Pt has medical complexities including significant cognitive deficits, psych/anxiety overlay. Pt is below her baseline level of function with bed mobility and transfers, currently requiring 2nd person assist, but anticipate will improve as UTI treated. D/C plan is back to [facility] if she continues to improve per chart notes. Goals Grooming Goal Standby Assistance Dressing Goal Moderate Assistance Toileting Goal Moderate Assistance Toilet Transfer Goal Moderate Assistance OT-Other Goals Transfer goal is for 1 person assist with FWW from bed to W/C or BSC . Days to Meet Goals 3 Frequency of Treatment Frequency Of Treatment Once a Day Treatment Plan OT Treatment Plan ADL Training Functional Mobility Patient/Family Education Discharge Planning Discharge Recommendations Other Discharge Recommendations return to [facility]
--- NOTE | 2018-03-15 14:01 | PT.IIE ---
Current Diagnoses Sleep apnea, unspecified (03/14/18) Medical History (Last Reviewed 02/03/18 @ 03:30 by Carlyle Rocha DO) Arthritis of knee (Chronic) Back pain (Chronic) Scoliosis (Chronic) Physical Therapy Inpatient Evaluation/Re-Eval Medical Review Prior Functional Status Medical History Reviewed Yes Mobility and Gait has a walker but mostly just transfers bed>wc>toilet with assist from staff using a FWW. Social History Household Members none Living Arrangements Assisted Living Number of Floors (Floors) One Floor Number of Stairs To Enter/Railing? n/a Home Equipment Front Wheel Walker Manual Wheelchair Hospital Bed Additional Social History Comment Pt lives at [facility] where they provide a lot of support for the patient . Physical Therapy Current Condition Current Condition Evaluation Date 03/15/18 Treatment Diagnosis SOB, UTI - impaired mobility Onset Date 03/13/18 Subjective Physical Therapy Visit Type Type Initial Evaluation Visit Start Time 13:00 Visit Stop Time 13:40 Total Visit Minutes 40 Notes co-eval with OT Physical Therapy Visit Comments Patient Comments Pt reports sleeping well, only c/o pain in back and knees, Therapy Pain Assessment Pain When Pain Assessed At Rest Pain Present Pain Present Pain Reported PT-Bed Mobility Assessment Supine to Sit Supine to Sit Moderate Assistance 2 Person Assistance Scooting Scooting to Edge of Bed Maximum Assistance Scooting Up and Down in Bed Dependent PT-Transfer Assessment Sit to and From Stand Sit to and from Stand Moderate Assistance 2 Person Assistance Use of Upper Extremities Equipment Transfer Assistive Device Gait Belt Front Wheeled Walker Transfers Transfer Destination Chair Bedside Commode Transfer Technique Stand Step Pivot Transfer Ability Level of Assist Contact Guard Assistance 2 Person Assistance Comments Mobility Comments Pt requiring 2 person mod A to stand up, cues for hand position and technique. Once upright pt is CGA, including for stand-pivot transfers. However, to sit back down pt requires max A to avoid a plop . Gait Assessment Comments Gait Comments not truly tested, pt only able to take steps for pivoting while transferring. Stair Climbing Assessment Comments Stair Climbing Comments not necessary to assess PT-Balance Assessment Sitting Balance and Reactions Static Sitting Balance Ability Good Dynamic Sitting Balance Ability Fair Standing Balance and Reactions Static Standing Balance Ability Poor Dynamic Standing Balance Ability Poor Gross Range of Motion Upper Extremity ROM Assessment Within Functional Limits Lower Extremity ROM Assessment Right Impaired Impairments R knee limited due to pain Strength Comments Strength Comments formal MMT not performed, functionally pt is grossly weak with poor endurance Physical Therapy Treatment Education Education Provided Safety PT Summary Assessment and Plan Potential Rehabilitation Potential Fair Status of Condition at Evaluation Evolving Summary Impairments Pain ROM Strength Balance Cognition Bed Mobility Transfers Gait Activity Tolerance Assessment Summary Pt presents today with gross weakness, poor activity tolerance, and need for up to two person max A for functional mobility. This is below pt's reported functional baseline, however, pt does have potential for functional improvement and will benefit from ongoing skilled therapies . Recommend pt transition to SNF rehab once medically ready . Goals Bed Mobility Goal Minimal Assistance Transfer Goal Minimal Assistance Days to Meet Goals 3 Frequency of Treatment Frequency Of Treatment Once a Day Treatment Plan Physical Therapy Treatment Plan Bed Mobility Training Transfer Training Gait Training Therapeutic Exercise Balance Retraining Post Op Education Discharge Planning Hot or Cold Pack Neuromuscular Re-ed Coordination Retraining Manual Therapy Other Recommendations and Next Treatment strength, standing tolerance/ Focus transfers Recommendations To Nursing Amount of Assist Needed 2 Person Assist Discharge Recommendations PT Discharge Recommendations SNF Rehab
--- NOTE | 2018-03-15 16:39 | SLP.IPNOTE ---
Attempted swallow evaluation but pt was engaged in another procedure. Will attempt again tomorrow morning.
--- NOTE | 2018-03-15 18:33 | PC.NURSE ---
Addendum entered by Amena Franco R.N. 03/15/18 21:11: 2100 - Pt with erythema to area just distal to the nares. NC tube causing discomfort. Duoderm thin applied to area to prevent breakdown. Pt able to take po meds without difficulty. 2 person assist to BSC, with fww and gaitbelt. O2 sats 97% on 2l. Pt reports that she is not yet ready for c-pap. Call light in reach. Original Note: Pt resting in bed. Snoring. 97% on 2L. No s/s of distress. Monitor. Call light in reach.
--- NOTE | 2018-03-15 18:43 | P.PN_ITS ---
Subjective Date Patient Seen: 03/15/18 Time Patient Seen: 16:43 Interval history: History of present illness Follow up on patient admitted to the hospital with hypercapnic hypoxemic respiratory failure. Patient with known history of sleep apnea and compliant with her CPAP mask Patient with recent imaging of brain indicating multiple lacunar infarcts. Patient with prior history of hypertensive encephalopathy with small vessel disease changes evident on imaging. Review of systems Patient denies having any chest pain or shortness of breath or nausea at this time. Exam Vital Signs (past 8 hours): - 03/15/18 12:24 03/15/18 15:34 03/15/18 15:51 Temperature 98.2 F 98.0 F Pulse Rate 64 61 Respiratory Rate 22 21 Blood Pressure 125/65 131/68 Pulse Oximetry 98 97 99 03/15/18 18:34 Temperature Pulse Rate Respiratory Rate Blood Pressure Pulse Oximetry 97 Oxygen Delivery Method Nasal Cannula Oxygen Flow Rate 2 Narrative Exam Narrative: General appearance patient has noted awake and alert and smiling in no apparent distress at rest Psychiatric patient is oriented to self and time she was not sure of the name of this hospital Skin no rashes or lesions are evident turgor normal nonjaundiced Respiratory fair breath sounds are noted bilateral with no obvious crackles or wheezing Cardiovascular a fairly prominent systolic murmur is best heard over the aortic valve with a radiation across the chest and into the carotids.Regular rate rhythm is noted +2 pulses noted to extremities GI fairly soft nontender positive bowel sounds no distention no bruits no guarding no pedal splenomegaly evident Neurologic patient with a weakness to lower extremity bilaterally. Dysarthric tardive dyskinesia-like motion of the mouth region noted no tremors at rest noted Nor with motion Musculoskeletal strength appears to be somewhat symmetric though diminished no clubbing is noted range of motion appears to be normal Objective Labs Result Diagrams: 03/15/18 04:58 03/15/18 04:58 Labs: Laboratory Results - last 24 hr 03/14/18 03/15/18 03/15/18 16:15 04:58 04:58 WBC 8.8 RBC 4.27 Hgb 12.7 Hct 38.7 MCV 90.7 MCH 29.8 MCHC 32.9 RDW 15.7 H Plt Count 226 Neut % (Auto) 69.1 Lymph % (Auto) 22.1 L Wharton % (Auto) 7.4 Eos % (Auto) 1.2 L Baso % (Auto) 0.2 Neut # (Auto) 6100 H Sodium Potassium Chloride Carbon Dioxide BUN Creatinine Estimated GFR BUN/Creatinine Ratio Glucose Hemoglobin A1c 6.2 H Calcium Total Bilirubin AST ALT Alkaline Phosphatase Total Protein Albumin Globulin Albumin/Globulin Ratio Nasal Screen MRSA (PCR) Negative for mrsa 03/15/18 04:58 WBC RBC Hgb Hct MCV MCH MCHC RDW Plt Count Neut % (Auto) Lymph % (Auto) Wharton % (Auto) Eos % (Auto) Baso % (Auto) Neut # (Auto) Sodium 141 Potassium 4.3 Chloride 97 L Carbon Dioxide 39 H BUN 17 Creatinine 0.50 L Estimated GFR > 60.0 BUN/Creatinine Ratio 34.0 H Glucose 100 Hemoglobin A1c Calcium 9.4 Total Bilirubin 0.5 AST 21 ALT 17 Alkaline Phosphatase 95 Total Protein 6.7 Albumin 3.7 Globulin 3.0 Albumin/Globulin Ratio 1.2 Nasal Screen MRSA (PCR) Assessment & Plan Plan: Assessment/Plan Narrative: Hypercapnic hypoxemic respiratory failure Note the lungs are fairly clear with no significant crackles suggestive for fibrotic lung disease. Patient is certainly not morbidly obese. Patient does have history of multiple strokes as evident on the CT from January 2018. I requested speech therapist to do a bedside swallow eval when next available Will provide oxygen at 1 liter/minute. Continue to monitor patient's progress Patient is admitted under observation Sleep apnea disorder Requested RT to set up for CPAP at 12 cm of water Sisters will bring in patient's CPAP mask from the assisted living place Prominent systolic heart murmur I suspect this as a aortic valve stenosis with radiation into the carotids to as well as across the precordium History of multiple lacunar infarcts Patient with history of hypertensive encephalopathy. The lacunar infarcts likely related to uncontrolled hypertension over the years Requesting an MRI of the brain did no describe any new lesions in comparison to prior brain imaging. Mult lacunar infarcts noted on CT of brain in recent past. Multiple antidepressives and antianxiety medications Will continue patient's medications she normally takes in the outpatient setting. It appears patient takes the Paxil in the morning. This is the most sedating of the SSRI class antidepressant. It should be taken in the evening instead of the morning. Buspar at 15 mg p.o. t.i.d. will be continued as tolerated along with the trazodone 100 mg at bedtime. Both of these are her usual doses Patient is wheelchair-bound Physical therapy and occupational therapy consult requested Bacterial colonization of the urine As noted on urinalysis. No antibiotic treatment appears indicated Time Spent With Patient Time with patient: 25 - 35 minutes (25 min)
[2018-03-15] MEDS: CEFTRIAXONE 1 GM/50 ML FROZ.PIGGY IV (18:54)
[2018-03-15] MEDS: PARoxetine 10 MG TABLET PO (20:50)
[2018-03-15] MEDS: ATORVASTATIN 20 MG TABLET 40 MG PO (20:51)
[2018-03-15] MEDS: SENNOSIDES 8.6 MG TABLET 17.2 MG PO (20:51)
--- NOTE | 2018-03-15 21:04 | DI.ECHO.S_ITS ---
Echocardiogram Report + + :Name: ADEOLA PATRICK Study Date: 03/15/2018 Height: 68 in : :[facility] Exam Location: [facility] Weight: 170 lb : : Gender: Female BSA: 1.9 m2 : :: 1955 Age: 63 yrs BP: 126/85 mmHg: :Reason For Study: Systolic heart murmur : : Performed By: Akiko Page : :Referring: LONNIE ADAMS : + + Interpretation Summary Normal sinus rhythm. Normal LV size; moderate LVH; normal wall motion and LV systolic function. EF is 65-70%. Moderate LA enlargement; otherwise normal chamber sizes. Severe ; V max 4 m/sec; mean gradient 40 mm Hg. Mitral valve leaflets are normal; mild MAC; no regurgitation. No prior study available for comparison. Procedure: A two-dimensional transthoracic echocardiogram with color flow and Doppler was performed. The study quality was technically adequate. There is no prior echocardiogram noted for this patient. The patient was in normal sinus rhythm during the exam. Left Ventricle: There is moderate concentric left ventricular hypertrophy. The left ventricle is normal in size. The ejection fraction is estimated to be 65-70%. Right Ventricle: The right ventricle is normal in size and function. Atria: The left atrium is moderately dilated. Right atrial size is normal. There is no Doppler evidence for an interatrial shunt. Mitral Valve: The mitral valve leaflets appear thickened, but open well. There is mild mitral annular calcification. There is no mitral regurgitation noted. Aortic Valve: The aortic valve is moderately calcified. The peak aortic velocity is 4.0 m/sec. The aortic valve mean gradient is 39.5 mmHg. The calculated aortic valve area is 0.72 cm2. There is mild aortic regurgitation. Tricuspid Valve: The tricuspid valve is normal in structure and function. There is trace tricuspid regurgitation. Pulmonary artery pressures cannot be estimated because of the lack of a measurable TR jet velocity. Pulmonic Valve: The pulmonic valve is not well visualized. There is a trace or physiologic amount of pulmonic regurgitation. Great Vessels: The aortic root is normal size. The ascending aorta is mildmoderately enlarged. The aortic arch is normal in size. The pulmonary artery is not well visualized, but is probably normal size. The IVC is of normal diameter and collapses greater than 50% with a sniff. This suggests a low right atrial pressure of 3 mm Hg. Pericardium/ Pleura There is no pericardial effusion. There is no pleural effusion. MMode/2D Measurements & Calculations LVIDd: 4.2 cm LVOT diam: 2.0 cm LVIDs: 2.5 cm Ao root diam: 3.5 cm FS: 40.6 % asc Aorta Diam: 4.0 cm EPSS: 0.28 cm Ao Arch Diam (Prox Trans): 3.0 cm IVSd: 1.3 cm LVPWd: 1.2 cm LV buenrostro. diameter/BSA (cm/m^2): 2.2 LV sys. diameter/BSA (cm/m^2): 1.3 LA A2 area: 26.0 cm2 RA long axis: 4.2 cm LA A4 area: 25.9 cm2 RA area: 12.5 cm2 LA length (vol): 6.6 cm RA vol: 31.4 ml LA vol: 86.0 ml RA : 16.5 ml/m2 LA vol index: 45.1 ml/m2 IVC diam: 1.4 cm RVD1 (basal): 3.7 cm Doppler Measurements & Calculations Ao V2 max: 402.5 cm/sec LVOT Max Pradeep: 80.5 cm/sec Ao V2 mean: 300.6 cm/sec LV V1 max P.6 mmHg Ao max P.8 mmHg LV V1 VTI: 21.3 cm Ao mean P.5 mmHg ALANA(I,D): 0.72 cm2 Ao V2 VTI: 90.0 cm ALANA(V,D): 0.61 cm2 sev ratio: 0.24 ALANA indexed to BSA (cm^2/m^2): 0.38 AI P1/2t: 499.4 msec AI dec slope: 212.2 cm/sec2 MV E max pradeep: 59.7 cm/sec PA V2 max: 75.2 cm/sec MV A max pradeep: 77.6 cm/sec PA V2 mean: 55.2 cm/sec MV E/A: 0.77 PA mean P.3 mmHg Med Peak E' Pradeep: 4.2 cm/sec PA Accel Time: 0.10 sec E/E' med: 14.1 Lat Peak E' Pradeep: 5.9 cm/sec E/E' lat: 10.1 E/e' average: 12.1 MV dec time: 0.25 sec MV P1/2t: 67.9 msec MV P1/2t max pradeep: 56.3 cm/sec MVA(P1/2t): 3.2 cm2 _ Reading Physician:09:04 PM
[2018-03-15] MEDS: MELATONIN 3 MG TABLET PO (23:40)
[2018-03-15] MEDS: TRAZODONE 100 MG TABLET PO (23:40)
[2018-03-16] VITALS (16 sets, daily range): BP systolic 85–141; BP diastolic 46–73; PULSE 61–100; RESP 12–25; TEMP 36.2–36.9; O2SAT 89–100
[2018-03-16 04:57] LABS: Add Manual Diff / Slide Review NO; Basophils Percent Auto 0.6 % (0-2); Eosinophils Percent Auto 0.7 % (2-4); Hematocrit 39.4 % (36-46); Hemoglobin 12.6 g/dL (12.0-16.0); Mean Corpuscular HGB Conc 31.9 % (30-36); Mean Corpuscular Hemoglobin 29.2 PG (26-34); Mean Corpuscular Volume 91.6 fL (80-100); Monocytes Percent Auto 8.9 % (3-14); Neutrophils Absolute Auto 5400 /uL (3000-5900); Neutrophils Percent Auto 69.8 % (50-75); Platelet Count 209 X10^3/uL (150-400); Red Cell Distribution Width 16.2 % (11.6-14.8); White Blood Cell Count 7.7 X10^3/uL (4.5-11.0)
[2018-03-16 05:06] LABS: Alanine Aminotransferase 20 IU/L (9-52); Albumin 3.7 g/dL (3.5-5.0); Albumin Globulin Ratio 1.2 (1.0-2.8); Alkaline Phosphatase 79 U/L (38-126); Aspartate Aminotransferase 22 IU/L (14-36); BUN Creatinine Ratio 36.7 (6-22); Bilirubin Total 0.3 mg/dL (0.2-1.3); Blood Urea Nitrogen 22 mg/dL (7-17); Calcium 9.3 mg/dL (8.4-10.2); Carbon Dioxide 39 mmol/L (22-32); Chloride 98 mmol/L (98-107); Estimated Glomerular Filt Rate > 60.0 mL/min (>60); Glucose 110 mg/dL (80-110); HEMOLYSIS < 15 (0-50); Potassium 4.4 mmol/L (3.4-5.1); Sodium 142 mmol/L (137-145); Total Protein 6.7 g/dL (6.3-8.2)
[2018-03-16] MEDS: PANTOPRAZOLE 20 MG TABLET PO (06:16)
[2018-03-16] MEDS: CODEINE/ACETAMINOPHEN 30/300 TABLET 1 TAB PO ×2 (06:16→22:08)
[2018-03-16] MEDS: LORazepam 0.5 MG TABLET PO ×3 (06:16→21:53)
[2018-03-16] MEDS: LIDOCAINE PATCH 1 EACH ADH..PATCH 2 EACH TOP (10:45)
[2018-03-16] MEDS: SODIUM CHLORIDE 0.9% FLUSH 10 ML IV ×2 (10:45→21:59)
[2018-03-16] MEDS: ENOXAPARIN 40 MG/0.4 ML SYRINGE SUBCUT (10:45)
[2018-03-16] MEDS: BUSPIRONE 15 MG TABLET PO ×3 (10:59→21:54)
[2018-03-16] MEDS: ASPIRIN EC 81 MG TABLET PO (10:59)
[2018-03-16] MEDS: MULTIVITAMIN 1 TABLET 1 TAB PO (10:59)
[2018-03-16] MEDS: PREGABALIN 75 MG CAPSULE PO ×2 (10:59→21:53)
[2018-03-16] MEDS: METOPROLOL ER 25 MG TABLET PO (10:59)
[2018-03-16] MEDS: ACIDOPHILUS/L.BULG/BIF.B/S.THERMOP TABLET 1 EACH PO ×2 (10:59→21:53)
--- NOTE | 2018-03-16 11:00 | PT.IPTN ---
Current Diagnoses Sleep apnea, unspecified (03/16/18) Acute and chronic respiratory failure with hypoxia (03/16/18) Acute and chronic respiratory failure with hypercapnia (03/16/18) Acute cystitis with hematuria (03/16/18) Physical Therapy Treatment Note M2 PT-IP Current Condition Start: 03/15/18 09:27 Freq: NEEDED Status: Active Protocol: Document 03/15/18 13:40 RS (Rec: 03/15/18 14:01 RS [id number]) Physical Therapy Current Condition Current Condition Evaluation Date 03/15/18 Treatment Diagnosis SOB, UTI - impaired mobility Onset Date 03/13/18 M3 PT-IP Subjective Start: 03/15/18 09:27 Freq: NEEDED Status: Active Protocol: Document 03/16/18 11:00 AB (Rec: 03/16/18 12:38 AB [id number]) Subjective Physical Therapy Visit Type Type Treatment Note Visit Start Time 11:00 Visit Stop Time 11:35 Total Visit Minutes 35 Number of [employer] Visits 0 Physical Therapy Visit Comments Patient Comments pt agreeable to get out of bed Therapy Pain Assessment Pain When Pain Assessed At Rest Location Lower Back Intensity 6 Scale Used Numeric (1 - 10) Bilateral Leg Intensity 6 Scale Used Numeric (1 - 10) M4 PT-IP Mobility and Gait Start: 03/15/18 09:27 Freq: NEEDED Status: Active Protocol: Document 03/16/18 11:00 AB (Rec: 03/16/18 12:38 AB [id number]) PT-Bed Mobility Assessment Supine to Sit Supine to Sit Maximum Assistance PT-Transfer Assessment Sit to and From Stand Sit to and from Stand Maximum Assistance 1 Person Assistance Use of Upper Extremities Equipment Transfer Assistive Device Gait Belt Front Wheeled Walker Orthotic/Prosthetic Devices or Brace: No Transfers Transfer Destination Chair Bedside Commode Transfer Technique Stand Step Pivot Transfer Ability Level of Assist Moderate Assistance 1 Person Assistance Comments Mobility Comments pt requiring max A with sit to stand with max cues. (+) back and L hip crepitus during sit to stand. pt requires max cues with all tasks. pt completed bed to chair transfer using FWW max A and max cues. pt requested to use the toilet and completed stand step transfer using fWW chair to bedside commode max A and max cues. Gait Assessment Gait Gait Assistance Required: Moderate Assistance Maximum Assistance Distance (Feet) 5 Able to Maintain Weight Bearing Status Yes During Gait Assistive Devices Assistive Device Gait Belt Front Wheeled Walker Orthotic/Prosthetic Devices or Brace: No Gait Deviations General Gait Pattern Decreased Stride Length Decreased Feet Clearance Factors Limiting Gait Function Factors Limiting Gait Function Decreased Activity Tolerance Decreased Strength Difficulty Following Directions Limited Range of Motion Pain Poor Balance Poor Safety Awareness M5 PT-IP Objective Assessments Start: 03/15/18 09:27 Freq: NEEDED Status: Active Protocol: Document 03/15/18 13:40 RS (Rec: 03/15/18 14:01 RS [id number]) Gross Range of Motion Upper Extremity ROM Assessment Within Functional Limits Lower Extremity ROM Assessment Right Impaired Impairments R knee limited due to pain Strength Comments Strength Comments formal MMT not performed, functionally pt is grossly weak with poor endurance M6 PT-IP Treatment Start: 03/15/18 09:27 Freq: NEEDED Status: Active Protocol: Document 03/16/18 11:00 AB (Rec: 03/16/18 12:38 AB [id number]) Physical Therapy Treatment Education Education Provided Safety M7 PT-IP Assessment and Plan Start: 03/15/18 09:27 Freq: NEEDED Status: Active Protocol: Document 03/16/18 11:00 AB (Rec: 03/16/18 12:38 AB [id number]) PT Summary Assessment and Plan Potential Rehabilitation Potential Fair Summary Impairments Pain ROM Strength Balance Coordination Sensation Cognition Bed Mobility Transfers Gait Activity Tolerance Progress Towards Goals Slow Progress due to Medical Issues Slow Progress due to Activity Tolerance Assessment Summary pt requiring max A with mobility. stated that she was requiring one person assist at [facility] and mostly w/c bound but able to do short distance ambulation using FWW. pt may benefit from SNF rehab to improve mobility and decrease burden of care before going back to [facility]. Goals Bed Mobility Goal Minimal Assistance Transfer Goal Minimal Assistance Gait Goal Minimal Assistance Gait Distance 30 Days to Meet Goals 5 Frequency of Treatment Frequency Of Treatment Once a Day Treatment Plan Physical Therapy Treatment Plan Bed Mobility Training Transfer Training Gait Training Therapeutic Exercise Balance Retraining Post Op Education Discharge Planning Hot or Cold Pack Neuromuscular Re-ed Coordination Retraining Manual Therapy Other Recommendations and Next Treatment strength, standing tolerance/ Focus transfers Recommendations To Nursing Amount of Assist Needed 2 Person Assist Discharge Recommendations PT Discharge Recommendations SNF Rehab
[2018-03-16] MEDS: ACETAMINOPHEN 325 MG TABLET 650 MG PO (11:01)
[2018-03-16] MEDS: MAGNESIUM HYDROXIDE 30 ML UDC PO (11:09)
--- NOTE | 2018-03-16 12:29 | PM.PN.1 ---
Subjective Date Patient Seen: 03/16/18 Interval history: Chart reviewed, patient seen and examined. She is awake and alert, but slow to respond She continues to require oxygen for hypoxia. She has been non compliant with CPAP at night. She has no history of smoking, by report she was just noted to be hypoxic a few days ago. She had a negative CTA. She has an echo that is pending. Etiology of hypercapnic hypoxemia remains unclear Exam Vital Signs (past 8 hours): - 03/16/18 04:52 03/16/18 08:09 03/16/18 08:14 Temperature 97.1 F L Pulse Rate 69 Respiratory Rate 15 Blood Pressure 135/65 Pulse Oximetry 96 95 91 03/16/18 08:39 03/16/18 09:10 03/16/18 09:11 Temperature 98.3 F Pulse Rate 62 Respiratory Rate 25 H Blood Pressure 85/52 L 92/46 L Pulse Oximetry 95 96 03/16/18 11:00 Temperature 98 F Pulse Rate 70 Respiratory Rate 18 Blood Pressure 119/73 Pulse Oximetry 95 Oxygen Delivery Method Nasal Cannula Oxygen Flow Rate 3 Narrative Exam Narrative: Pleasant female, confused, slow to respond but appropriate Myoclonic jerking noted, no tremor per se Lungs: right basilar crackles CV: RRR nl S1S2 3/6 WINTER Abd: soft/ non tender/ Ext: noedema Objective Labs Result Diagrams: 03/16/18 04:41 03/16/18 04:41 Labs: Laboratory Results - last 24 hr 03/16/18 03/16/18 04:41 04:41 WBC 7.7 RBC 4.30 Hgb 12.6 Hct 39.4 MCV 91.6 MCH 29.2 MCHC 31.9 RDW 16.2 H Plt Count 209 Neut % (Auto) 69.8 Lymph % (Auto) 20.0 L Gregory % (Auto) 8.9 Eos % (Auto) 0.7 L Baso % (Auto) 0.6 Neut # (Auto) 5400 Sodium 142 Potassium 4.4 Chloride 98 Carbon Dioxide 39 H BUN 22 H Creatinine 0.60 Estimated GFR > 60.0 BUN/Creatinine Ratio 36.7 H Glucose 110 Calcium 9.3 Total Bilirubin 0.3 AST 22 ALT 20 Alkaline Phosphatase 79 Total Protein 6.7 Albumin 3.7 Globulin 3.0 Albumin/Globulin Ratio 1.2 Assessment & Plan (1) Acute on chronic respiratory failure with hypoxia and hypercapnia: Problem details: Await Echo Results. Will discuss RT, consider BIpap trial with repeat ABG May need another sleep study and/or pulmonary consult. IF above negative consider high resolution CT to r/o Intersitial lung disease Current visit: Yes Status: Acute (2) UTI (urinary tract infection): Problem details: Culture shows proteus mirabilis, will adjust antibiotics accordingly Qualifiers: Encounter type: Hematuria presence: with hematuria Indwelling urinary catheter type: Urinary tract infection type: acute cystitis Qualified Code(s): N30.01 - Acute cystitis with hematuria Current visit: Yes Status: Acute
[2018-03-16 13:42] LABS: PO2 ABG 77 mmHg (80-105); pH ABG 7.37 (7.35-7.45)
[2018-03-16 13:43] LABS: Fractionated Inspired Oxygen 0.32; HCO3 ABG 39 mmol/L (23-27); Oxygen Saturation ABG 94 % (95-100); TCO2 ABG 41 mmol/L (23-27)
[2018-03-16] MEDS: cephALEXin 250 MG CAPSULE PO ×3 (14:14→21:55)
--- NOTE | 2018-03-16 14:21 | OT.IP.TRT ---
Current Diagnoses Sleep apnea, unspecified (03/16/18) Acute and chronic respiratory failure with hypoxia (03/16/18) Acute and chronic respiratory failure with hypercapnia (03/16/18) Acute cystitis with hematuria (03/16/18) Occupational Therapy Treatment Note M2 OT-IP Current Condition Start: 03/15/18 15:09 Freq: Status: Active Protocol: Document 03/15/18 13:30 PJM (Rec: 03/15/18 15:35 PJM [id number]) Occupational Therapy Current Condition Current Condition Evaluation Date 03/15/18 Treatment Diagnosis decreased self care,transfer skills, s/p admit for UTI w/ hypoxia,confusion Diagnosis Onset Date 03/14/18 Post Operative Precautions Other Precautions fall risk, confusion, bed/ chair alarm, 2L O2 via NC M3 OT- IP Subjective and Pain Start: 03/15/18 15:09 Freq: Status: Active Protocol: Document 03/16/18 14:21 PJM (Rec: 03/16/18 15:11 PJM [id number]) OT- Subjective Occupational Therapy Visit Type Type Treatment Note Visit Start Time 13:36 Visit Stop Time 14:21 Total Visit Minutes 46 Notes Pt up in recliner when therapist arrived; agreeable to tx. OT Pain Assessment Pain When Pain Assessed After Treatment Pain Present Pain Present Denied Pain M4 OT- IP ADL's Start: 03/15/18 15:09 Freq: Status: Active Protocol: Document 03/16/18 14:21 PJM (Rec: 03/16/18 15:11 PJM [id number]) OT ADL-Grooming General Evaluation Grooming Ability Standby Assistance Minimal Assistance Areas Needing Assistance Retrieving/Set-up of Grooming Items Combing/Brushing Hair Face Washing Comments OT Grooming Comments Improved thoroughness today. Pt needed min- assist to brush far back of head only OT ADL-Oral Care General Eval Oral Care Ability Standby Assistance Areas of Assistance Retrieving/Set-Up of Items Devices Oral Care Devices Toothbrush Comments Oral Care Comments SBA and min cues for oral care due to unfamiliar set up seated in chair. Pt states she normally sits in w/c at sink. OT ADL-Dressing General Eval Upper Body Dressing Ability Minimal Assistance Lower Body Dressing Ability Standby Assistance Areas Needing Assistance Socks Comments OT Dressing Comments Pt min assist with gown change. Pt able to bend over and don and doff both socks while seated in chair with no LOB. OT ADL-Toileting General Evaluation Toileting Ability Total Assistance Areas Needing Assistance Manage Clothing Perform Perineal Hygiene Devices Toileting Assistive Devices Commode OT ADL-Bathing Devices Bathing Equipment Rinse Free Shampoo Cap Comments OT Bathing Comments Mod assist to don/doff cap, then SBA. M5 OT- IP IADL's Start: 03/15/18 15:09 Freq: Status: Active Protocol: Document 03/15/18 13:30 PJM (Rec: 03/15/18 15:35 PJ [id number]) OT-Instrumental Activities of Daily Living Deficits IADL Deficits Identified Deficits Home Safety Awareness Awareness of Need for Assistance at Home Decreased Awareness Ability to Problem Solve Emergency Unable to Problem Solve Situations Medication Management Medication Management Caregiver Administers Money Management Money Management Caregiver Provides Assistance Meal Preparation Meal Preparation Caregiver Provides Assist Meal Preparation Comments all meals provided at [facility] Urology Teacher Urology Teacher Caregiver Provides Assist Urology Teacher Comments pt lives at [facility] Driving Driving Caregiver Provides Assist Driving Comments pt no longer drives M6 OT- IP Functional Cognition Start: 03/15/18 15:09 Freq: Status: Active Protocol: Document 03/16/18 14:21 PJM (Rec: 03/16/18 15:11 [facility] [id number]) Cognitive Factors Limiting Selfcare Function Cognitive Ability Level of Alertness Alert Patient Orientation Name Attention Span Ability Capable of Focused Attention Ability to Follow Commands Able to Follow One Step Commands Cognitive Comments Cognitive Assessment Comments Pt states she was at a convenience store at the hospital. Pt presents with faster speed of processing today and able to converse briefly about TV show she was watching. M7 OT- IP Mobility and Balance Start: 03/15/18 15:09 Freq: Status: Active Protocol: Document 03/16/18 14:21 PJM (Rec: 03/16/18 15:11 [facility] [id number]) OT- Bed Mobility Assessment Sit to Supine Sit to Supine Assist Moderate Assistance 2 Person Assistance Scooting Scooting Up and Down in Bed Maximum Assistance 2 Person Assistance OT-Transfer Assessment Sit to and From Stand Sit to and from Stand Maximum Assistance 1 Person Assistance Transfers Transfer Ability Moderate Assistance 2 Person Assistance Technique Transfer Destination Bed Bedside Commode Transfer Technique Stand Step Pivot Devices Transfer Assistive Devices Gait Belt Front Wheeled Walker Comments Mobility Comments Pt needs max assist with pad to scoot forward in chair, then max assist of 1 with CGA fo second for safety for sit to stand with FWW. Once on her feet, pt is mod assist of 1 to for stand-step transfer to commode then able to make 180 degree turn to move from commode to bed. CGA of second person assist for safety. Pt needs gentle guidance to turn her hips and steer FWW for 180 degree turn but no buckling noted. OT- Gait Assessment Gait Distance (Feet) 2 Assistive Devices Assistive Device Gait Belt Front Wheeled Walker Comments Gait Ability Comments small steps, more difficulty advancing L foot than R, decreased weight shifting noted OT- Balance Assessment Sitting Balance and Reactions Static Sitting Balance Ability Good Dynamic Sitting Balance Ability Good Standing Balance and Reactions Static Standing Balance Ability Fair Dynamic Standing Balance Ability Fair M9 OT- IP Assessment and Plan Start: 03/15/18 15:09 Freq: Status: Active Protocol: Document 03/16/18 14:21 PJM (Rec: 03/16/18 15:11 PJM [id number]) OT Summary Assessment and Plan Summary OT Impairments Strength Balance Functional Cognition Functional Mobility Grooming Dressing Toileting Bathing Toilet Transfers Shower Transfers Progress Towards Goals Slow Progress due to Medical Issues Assessment Summary Pt noted to have low ABGS today. Difficulty with oximeter reading on fingers, oximeter on R toe reading 98- 100% once pt back in bed at end of session. Pt more alert today than yesterday with increased thoroughness noted with grooming tasks and increased participation in dressing. Transfer skills slowly improving. Pt remains oriented to self only but follows one step commands well . Pt has flat affect but very cooperative. D/C plan is back to [facility] if she continues to improve vs SNF pending progress here. Goals Grooming Goal Standby Assistance Dressing Goal Moderate Assistance Toileting Goal Moderate Assistance OT-Other Goals Transfer goal is for 1 person assist with FWW from bed to W/ C or BSC . Days to Meet Goals 3 Frequency of Treatment Frequency Of Treatment Once a Day Treatment Plan OT Treatment Plan ADL Training Functional Mobility Patient/Family Education Discharge Planning Discharge Recommendations Other Discharge Recommendations return to [facility] Living vs SNF pending progress here
--- NOTE | 2018-03-16 14:26 | ST.IPIE ---
Care Team Visit Care Team Role Provider Type ISAK Woodson Primary Care Provider Non-Staff Specialty: Medical Address: [address] [place] [address] [address], [place], [address] Email: Katina Martinez DO Emergency Provider Physician Specialty: Emergency Medicine Address: [address] [place] [address], [id number] Email: Marco Mccarthy MD Admit Provider Physician Attending Provider Specialty: Internal Medicine Address: [address] [place] [address], [id number] Email: Current Diagnoses Sleep apnea, unspecified (03/16/18) Acute and chronic respiratory failure with hypoxia (03/16/18) Acute and chronic respiratory failure with hypercapnia (03/16/18) Acute cystitis with hematuria (03/16/18) Past Medical History (Last Reviewed 02/03/18 @ 03:30 by Carlyle Rocha DO) Arthritis of knee (Chronic Medical) Back pain (Chronic Medical) Scoliosis (Chronic Medical) ST IP Initial Evaulation Report [employer]S ADJUST[employer] CROP Clinical Swallow Evaluation Start: 03/16/18 13:15 Freq: Status: Active Protocol: Document 03/16/18 13:16 JAIDA (Rec: 03/16/18 14:26 JAIDA [email or web address]) Clinical Swallow Evaluation Session Time Visit Start Time 12:35 Visit Stop Time 12:55 Total Visit Minutes [address] Mccarthy Reason for Referral Swallow, Cognitive Evaluations Setting Assessment Location Acute Care Visit Type Note Type Initial Evaluation Next Note Type Next Note Type Treatment Note Patient Information Identification Type Name ID Card History 63-yr-old female resident of [facility] admitted for UTI, hypoxia and confusion. Pt has history of multiple strokes. Subjective Observations Pt was awake, sitting in chair eating with family friend present initially and left soon after [employer] arrival. The family friend expressed the pt 's and her family's concern about cognition. The pt reported difficulty with STM, including orientation to time and place and recalling people 's names. She was agreeable to cognitive assessment. Pt receiving 3L O2 via nasal cannula. Evaluation Liquids Trialed Thin Solids Trialed Puree Regular Administration Type Cup Consecutive Sips Straw Self-Feeding Oral Impairment Mildly Impaired Oral Strategies Upright at 90 degrees Oral Phase Comments Reduced bolus control during mastication and a/p propulsion . Swallow trigger appeared WFL , though at times the pt appeared to hold the bolus prior to swallow or between piecemeal swallows. Mild- moderate oral residue noted immediately after swallow but cleared well with subsequent swallows or liquid wash. Pt was able to self-manage oral residue. Pharyngeal Impairment WNL Pharyngeal Strategies Sitting Upright (90 deg) Small Bites and Sips Pharyngeal Phase Comments No overt s/sx of aspiration were observed with consumption of thin liquids via straw in single and consecutive sips, turkey sandwich, lagunas, and pudding. The pt did eat quite quickly; slower rate of intake is recommended. Findings Rehabilitation Potential Good Impressions Mild oral dysphagia secondary to reduced strength and coordination of oral musculature, resulting in extended oral prep phase and mild-moderate oral residue that is well managed by the pt . Diet Recommendations Liquids Order Thin Diet Order Regular Medication Recommendations As Tolerated Additional Dietary Needs Reminders to Use Strategies Aspiration Precautions Recommended Precautions Upright at 90 Degrees Small Bites/Sips Additional Precautions Slow rate of intake; minimize distractions Treatment Plan Placement Recommendations after [facility] Discharge Appropriate for Therapy Yes Therapy Recommendations Ongoing education RE aspiration risks/precautions, safe swallow strategies primarily reduced rate of intake and small bites/sips. Dysphagia Goals Pt will follow safe swallow strategies with min prompts. Pt will tolerate regular diet and thin liquids without s/sx of aspiration. CLAIMS ADJUST[employer] CROP Cognitive/Memory Evaluation Start: 03/16/18 13:15 Freq: Status: Active Protocol: Document 03/16/18 13:16 JAIDA (Rec: 03/16/18 14:26 JAIDA [email or web address]) Evaluation of Cognition Session Time Visit Start Time 12:55 Visit Stop Time 13:15 Total Visit Minutes 20 Evaluation Assessment Type Cognitive communication Hearing Hearing Level Normal Vision Vision Status Not Impaired [place] Language Language(s) Spoken in the Home Slovenian Educational Status Education Level 4 yrs college; studied law and [employer] Occupational Status Occupation Status Retired embedded firmware engineer Oral Motor Examination Oral Motor Exam Completed Yes Results Mildly reduced lingual and buccal strength and coordination. Pt with frequent lateral movements of lips, appears to be habitual or uncontrolled. - Informal Assessment Receptive Language Normal WFL for basic conversation; able to follow simple directions Expressive Language Normal WFL. Appropriate in simple conversation Articulation Normal Yes Cognition Normal No: SLUMS score: 14/30, consistent with dementia Assessment Findings Administered [facility] Status ( [facility]) Examination. Pt stated day of week as , rather than Wed; stated she did not know the year. Oriented to state. Able to immediately recall list of 5 objects; able to recall 2 of those objects after ~5 min delay. Performed mathematical with opposite calculation: When given story problem starting with $100 and purchase of 2 items and asked how much money she spent ($23 ), the pt answered $77; when asked how much she had left ($ 77), the pt answered $23. The problem was read to her again at the end of the test, and she stated $50 in response to both questions. When asked in distinct math form (How much is 20+3? How much is 100-23?), the pt calculated correctly. The pt named 11 animals in 60 seconds. She repeated number sequences in reverse order up to 3 digits, with 3 of 4 numbers correct in a 4-digit sequence. Clock drawing included all numbers in circular fashion with great distance from edge of clock face; clock hands were very short extending far from center and pointing to the righ to f numbers 10 and 11 ( for a ten minutes to 11:00 setting). She correctly marked an X in a triangle and identified the largest of 3 objects. She answered 3/4 of questions correctly related to a short story, self- correcting one answer to identify that [place] is in the state of [place]. Her score reflects dificits in working memory, problem solving, and mental flexibility. Recommendations Skilled intervention targeting cognitive communication skills and strategies to increase the pt's recall of functional information, orientation to person, place and time, and problem solving skills to increase independence and ability to participate in functional activities. Formal Assessment Results Moderate-severe cognitive communication deficits. - Cognition - Memory - Treatment Goals Short Term Goals The pt will orient to time, place, and hospital staff using external memory tools with minimal verbal prompts. The pt will complete cognitive communication tasks targeting working/short-term memory and problem solving skills with 75% accuracy and min-mod cues. Eight Section Blower Goals The pt will demonstrate ability to use simple external memory tools to recall functional information. The pt will demonstrate cognitive communication skills with verbal/visual assistance as needed to participate in ADLs and decision-making related to her medical needs. Total Time Full Evaluation Time 20 CLAIMS ADJUSTER CROP Oral Motor Exam Start: 03/16/18 13:15 Freq: Status: Active Protocol: Document 10/03/18 13:16 JAIDA (Rec: 03/16/18 14:26 JAIDA [id number]) Oral Motor Examination Face Facial Symmetry Right Side Asymmetry Facial Movement Involuntary Comments Consistent lateral mouth movements, appearing to be involuntary or habitual Mouth Teeth Characteristics Intact/Normal Pucker Lips Weak Smile Reduced ROM Puff Cheeks Reduced Strength Tongue Size Normal Tongue Movement Protrusion/Retraction Strength WFL Protrusion/Retraction Range of Movement Normal Protrusion/Retraction Coordination WFL Elevation/Depression Strength Mildly Reduced Elevation/Despression Range of Movement Reduced elevation; Depression WNL Elevation/Depression Coordination WFL Lateralization Strength Mildly Reduced Lateralization Range of Movement Normal Lateralization Coordination WFL Palate Soft Palate Description Normal Hard Palate Description Normal Velopharyngeal Movement Normal Hyolaryngeal Movement Hyolaryngeal Movement Normal Excursion Reduced Elevation
--- NOTE | 2018-03-16 15:00 | PC.NURSE ---
Day Shift Note Pt alert and oriented to self and place. Oxygen sats 96% on 3L NC. ABG done this afternoon -results called to Dr. Bullard and order received for bipap and ICU status. Placed on bipap at 1445 by RT. Pt tolerating at this time. Call light within reach.
--- NOTE | 2018-03-16 15:51 | CM.DPC ---
DCP: continued: case discussed in Team Rounds this morning. Dr. Bullard has changed admission status to INPT as of today, 03/16. P: is unclear at this point if pt will be able to return to [facility] or will need some snf time. DCP team to follow.
[2018-03-16 17:48] LABS: Fractionated Inspired Oxygen 0.25; HCO3 ABG 42 mmol/L (23-27); Oxygen Saturation ABG 95 % (95-100); PO2 ABG 82 mmHg (80-105); TCO2 ABG 44 mmol/L (23-27)
--- NOTE | 2018-03-16 19:56 | PC.NURSE ---
1900 - Pt not tolerating bi-pap mask. I can't stand this. During the last hour pt has moved the mask to the side and called out for help. Pt educated to treatment plan and encouraged pt to leave mask in place. Pt made an effort several times before refusing completely. Mask removed. RT notified that pt was unable to tolerate. Discussed with RT the need for follow up on pt current home c-pap, mask replacement and unknown last service of machine. Pt placed on 2L NC, monitor. Call light in reach.
[2018-03-16] MEDS: ATORVASTATIN 20 MG TABLET 40 MG PO (21:55)
[2018-03-16] MEDS: PARoxetine 10 MG TABLET PO (21:57)
[2018-03-16] MEDS: SENNOSIDES 8.6 MG TABLET 17.2 MG PO (21:57)
[2018-03-16] MEDS: TRAZODONE 100 MG TABLET PO (21:59)
[2018-03-17 00:29] VITALS: BP 93/52; PULSE 69; RESP 18; TEMP 36.1; O2SAT 99
[2018-03-17 03:21] VITALS: BP 115/59; PULSE 64; RESP 15; TEMP 36.2; O2SAT 97
[2018-03-17] MEDS: LORazepam 0.5 MG TABLET PO ×2 (04:24→08:46)
[2018-03-17] MEDS: CODEINE/ACETAMINOPHEN 30/300 TABLET 1 TAB PO (04:24)
[2018-03-17 07:25] VITALS: BP 89/46; PULSE 60; RESP 11; TEMP 36.6; O2SAT 98
[2018-03-17 07:42] LABS: Add Manual Diff / Slide Review NO; Basophils Percent Auto 0.3 % (0-2); Eosinophils Percent Auto 1.3 % (2-4); Hematocrit 37.8 % (36-46); Hemoglobin 12.3 g/dL (12.0-16.0); Lymphocytes Percent Auto 21.8 % (25-40); Mean Corpuscular HGB Conc 32.5 % (30-36); Mean Corpuscular Hemoglobin 29.8 PG (26-34); Mean Corpuscular Volume 91.6 fL (80-100); Monocytes Percent Auto 8.2 % (3-14); Neutrophils Absolute Auto 5400 /uL (3000-5900); Neutrophils Percent Auto 68.4 % (50-75); Platelet Count 211 X10^3/uL (150-400); Red Blood Cell Count 4.12 X10^6/uL (4.0-5.2); Red Cell Distribution Width 15.7 % (11.6-14.8); White Blood Cell Count 7.9 X10^3/uL (4.5-11.0)
[2018-03-17 07:53] LABS: Alanine Aminotransferase 21 IU/L (9-52); Albumin 3.8 g/dL (3.5-5.0); Albumin Globulin Ratio 1.4 (1.0-2.8); Alkaline Phosphatase 77 U/L (38-126); Aspartate Aminotransferase 22 IU/L (14-36); BUN Creatinine Ratio 38.6 (6-22); Bilirubin Total 0.4 mg/dL (0.2-1.3); Blood Urea Nitrogen 27 mg/dL (7-17); Calcium 9.4 mg/dL (8.4-10.2); Chloride 95 mmol/L (98-107); Estimated Glomerular Filt Rate > 60.0 mL/min (>60); Globulin 2.8 g/dL (1.7-4.1); Glucose 98 mg/dL (80-110); HEMOLYSIS < 15 (0-50); Potassium 4.5 mmol/L (3.4-5.1); Sodium 143 mmol/L (137-145); Total Protein 6.6 g/dL (6.3-8.2)
[2018-03-17 08:34] LABS: Carbon Dioxide 41 mmol/L (22-32)
[2018-03-17] MEDS: PANTOPRAZOLE 20 MG TABLET PO (08:46)
[2018-03-17] MEDS: BUSPIRONE 15 MG TABLET PO (08:47)
[2018-03-17] MEDS: ASPIRIN EC 81 MG TABLET PO (08:47)
[2018-03-17] MEDS: ACIDOPHILUS/L.BULG/BIF.B/S.THERMOP TABLET 1 EACH PO (08:47)
[2018-03-17] MEDS: cephALEXin 250 MG CAPSULE PO ×2 (08:48→13:21)
[2018-03-17] MEDS: MAGNESIUM HYDROXIDE 30 ML UDC PO (08:49)
[2018-03-17] MEDS: METOPROLOL ER 25 MG TABLET PO (08:49)
[2018-03-17] MEDS: MULTIVITAMIN 1 TABLET 1 TAB PO (08:50)
[2018-03-17] MEDS: PREGABALIN 75 MG CAPSULE PO (08:50)
[2018-03-17] MEDS: SODIUM CHLORIDE 0.9% FLUSH 10 ML IV (08:51)
[2018-03-17 09:11] VITALS: O2SAT 90
--- NOTE | 2018-03-17 09:15 | P.DS_ITS ---
History of Present Illness Date Patient Seen: 03/17/18 Chief complaint: Shortness breath, confusion, low oxygen Narrative: Shortness breath, confusion, low oxygen Narrative: Patient is a very pleasant 63 years of age female that resides at a local assisted living facility. Patient was brought to the emergency room with chief complaint of shortness of breath. Patient is a bit vague is as to how long she has been having this shortness of breath but appears to be over the last several days. Patient did know the year is 2007 and the financial institution president is Ashish Doll. For the most part patient appears to be a reliable historian. No recent nausea no weakness to extremities that appear new. Patient does note that she has difficulty with ambulating due to inability to control her lower extremities. The ER physician notes patient with a blood gas with a pCO2 of 70. She was also hypoxemic. Fortunately 1 L of nasal cannula oxygen flow appeared to stabilize her readily in the ER. I was requested to admit the patient for further workup regarding her hypercapnic hypoxemic respiratory failure. Discharge Providers Date of admission: 03/16/18 10:25 Primary care physician: ISAK Woodson Consults: 03/14/18 11:21 Consult to Respiratory Therapy Evaluate & Treat Comment: Physician Instructions: Evaluate and treat 03/14/18 17:34 Consult to Occupational Therapy Evaluate & Treat Comment: Physician Instructions: Evaluate and treat Consult to Physical Therapy Evaluate & Treat Comment: Physician Instructions: Evaluate and Treat Consult to Speech Therapy Evaluate & Treat Comment: eval for aspiration risk Physician Instructions: Evaluate and treat 03/14/18 17:35 Consult to Respiratory Therapy Evaluate & Treat Comment: set up C-PAP Mask at 12 cm H2O Physician Instructions: Evaluate and treat 03/14/18 17:52 Consult to Dietitian, Adult Routine Comment: Reason For Exam: assessed at high risk Discharge provider: Brandy Bullard MD Discharge Date: 03/17/18 Summary Discharge Diagnosis: Acute Respiratory Failure Metabolic Encephalopathy Hyperlipidemia Anxiety Depression Hypertension Obstructive Sleep Apnea Metabolic Alkalosis URinary tract infection, present on admission and treated Hospital Course: Patient admitted to the hospital for hypoxia and confusion. The etiology of the hypoxia was not clear. The patient has known obstructive sleep apnea and has a CPAP machine which she uses infrequently. She was noted to have chronic hypercapnea. A trial of BIpap therapy improved her oxygenation but did not change her CO2 retention. She had an echo that revealed an ejection fraction of 65%, trace tricuspid regurgiation, normal pulmonary pressures. She had a CT Angio which was negative for Pulmonary Embolus. The patient remained somewhat slow to respond, but appeared back to her baseline. I have recommended out patient neurology and pulmonary consultation. Patient was deemed appropriate for discharge back to her Assisted Living facility. Status at Discharge Functional status at discharge: uses cane/walker Overall status at discharge: patient is back to baseline Time Spent with Patient Less than 30 minutes Exam Vital Signs (past 8 hours): - 03/17/18 03:21 03/17/18 07:25 03/17/18 09:11 Temperature 97.2 F L 98 F Pulse Rate 64 60 Respiratory Rate 15 11 L Blood Pressure 115/59 L 89/46 L Pulse Oximetry 97 98 90 L Fraction of Inspired Oxygen 0.25 Oxygen Delivery Method Room Air Oxygen Flow Rate 0 Narrative Exam Narrative: pleasant female in no acute distress Lungs: Decreased breath sounds but clear to auscultation CV: RRR nl Sl S2 3/6 WINTER Abd: soft/ non tender/ non distended Ext: no edema Objective Labs Result Diagrams: 03/17/18 06:20 03/17/18 06:20 Labs: Laboratory Results - last 24 hr 03/16/18 03/16/18 03/17/18 13:31 16:57 06:20 WBC 7.9 RBC 4.12 Hgb 12.3 Hct 37.8 MCV 91.6 MCH 29.8 MCHC 32.5 RDW 15.7 H Plt Count 211 Neut % (Auto) 68.4 Lymph % (Auto) 21.8 L [place] % (Auto) 8.2 Eos % (Auto) 1.3 L Baso % (Auto) 0.3 Neut # (Auto) 5400 ABG pH 7.37 7.40 ABG pCO2 68.2 H* 67.8 H* ABG pO2 77 L 82 ABG HCO3 39 H 42 H ABG Total CO2 41 H 44 H ABG O2 Saturation 94 L 95 ABG Base Excess 14.0 H 17.0 H FiO2 0.32 0.25 Sodium Potassium Chloride Carbon Dioxide BUN Creatinine Estimated GFR BUN/Creatinine Ratio Glucose Calcium Total Bilirubin AST ALT Alkaline Phosphatase Total Protein Albumin Globulin Albumin/Globulin Ratio 03/17/18 06:20 WBC RBC Hgb Hct MCV MCH MCHC RDW Plt Count Neut % (Auto) Lymph % (Auto) [place] % (Auto) Eos % (Auto) Baso % (Auto) Neut # (Auto) ABG pH ABG pCO2 ABG pO2 ABG HCO3 ABG Total CO2 ABG O2 Saturation ABG Base Excess FiO2 Sodium 143 Potassium 4.5 Chloride 95 L Carbon Dioxide 41 H* BUN 27 H Creatinine 0.70 Estimated GFR > 60.0 BUN/Creatinine Ratio 38.6 H Glucose 98 Calcium 9.4 Total Bilirubin 0.4 AST 22 ALT 21 Alkaline Phosphatase 77 Total Protein 6.6 Albumin 3.8 Globulin 2.8 Albumin/Globulin Ratio 1.4 Discharge Plan Discharge Plan Patient Disposition: Assisted Living Transportation: Ambulance Discharge comment: Patient needs outpatient referral to neurology and pulmonary - She likely needs a repeat sleep study to determine if her CPAP settings are appropriate provided patient will use the CPAP I certify the postop hospital senior care care is medically necessary on a continuing basis for any conditions for which he/ she received care during this hospitalization.: Yes The receiving facility has agreed to accept transfer and provide medical treatment.: Yes Discharge Med Rec/Prescriptions Prescriptions: Continue multivitamin Tablet 1 tab PO DAILY RF: 0 atorvastatin 40 mg Tablet 40 mg PO QPM RF: 0 sennosides [senna] 8.6 mg Tablet 8.6 mg PO BEDTIME RF: 0 acetaminophen 325 mg Tablet 650 mg PO Q6H PRN (Reason: pain or fever) RF: 0 paroxetine HCl 10 mg Tablet 10 mg PO DAILY RF: 0 tizanidine 4 mg Tablet 4 mg PO Q6H PRN (Reason: Muscle Spasm) RF: 0 melatonin 3 mg Tablet 3 mg PO BEDTIME PRN (Reason: Sleep) RF: 0 acetaminophen-codeine 300-30 mg Tablet 1 tab PO TID PRN (Reason: pain) RF: 0 aspirin 81 mg Tablet,Delayed Release (Dr/Ec) 1 tab PO DAILY RF: 0 magnesium hydroxide [Milk of Magnesia] 400 mg/5 mL Suspension 30 ml PO DAILY RF: 0 trazodone 100 mg Tablet 100 mg PO BEDTIME PRN (Reason: Insomnia) RF: 0 nystatin 100,000 unit/gram Cream 1 applic TOPICAL BID RF: 0 lidocaine 5 % Adhesive Patch,Medicated 2 patch TOPICAL DAILY RF: 0 metoprolol succinate 25 mg Tablet Extended Release 24 Hr 25 mg PO DAILY RF: 0 buspirone 15 mg Tablet 15 mg PO TID RF: 0 Saccharomyces boulardii [Florastor] 250 mg Capsule 250 mg PO BID RF: 0 pregabalin [Lyrica] 75 mg Capsule 75 mg PO BID RF: 0 Discontinued lorazepam 0.5 mg Tablet 1 tab PO Q6H RF: 0 Follow up/Referrals: Estefani Mcnamara ARNP [Primary Care Provider] - 1 Week (Needs referral to Neurology-re metabolic encephalopathy and mental status Needs referral to Pulmonary for reevaluation of sleep apnea, hypoxia, and chronic hypercpnea) Discharge Orders: Discharge (Order); Ordered 03/17/18 Ordered By: Brandy Bullard Provider Discharge Instructions Diet: Diet as Tolerated Liquid consistency: Normal/Thin Food texture: Regular Activity: as tolerated Discharge Data Primary Care Provider: Estefani Mcnamara Attending Provider: Marco Mccarthy Admit Date/Time: 03/16/18 10:25 Discharges patient from system. Discharge Date/Time: 03/17/18 13:25
[2018-03-17] MEDS: LIDOCAINE PATCH 1 EACH ADH..PATCH 2 EACH TOP (10:18)
[2018-03-17] MEDS: ENOXAPARIN 40 MG/0.4 ML SYRINGE SUBCUT (10:18)
--- NOTE | 2018-03-17 10:24 | PT.IPTN ---
Current Diagnoses Sleep apnea, unspecified (03/16/18) Acute and chronic respiratory failure with hypoxia (03/16/18) Acute and chronic respiratory failure with hypercapnia (03/16/18) Acute cystitis with hematuria (03/16/18) Physical Therapy Treatment Note M2 PT-IP Current Condition Start: 03/15/18 09:27 Freq: NEEDED Status: Active Protocol: Document 03/15/18 13:40 RS (Rec: 03/15/18 14:01 RS [id number]) Physical Therapy Current Condition Current Condition Evaluation Date 03/15/18 Treatment Diagnosis SOB, UTI - impaired mobility Onset Date 03/13/18 M3 PT-IP Subjective Start: 03/15/18 09:27 Freq: NEEDED Status: Active Protocol: Document 03/17/18 10:24 (Rec: 03/17/18 13:03 [id number]) Subjective Physical Therapy Visit Type Type Treatment Note Visit Start Time 10:24 Visit Stop Time 10:47 Total Visit Minutes 23 Number of RADIO AERIAL INSTALLER Visits 0 Physical Therapy Visit Comments Patient Comments Pt sleeping in recliner when entered room, but rouses and is agreeable to do some standing and exercise today. Therapy Pain Assessment Pain When Pain Assessed During Mobility Pain Present Pain Present Pain Reported Location Bilateral Knee Scale Used pain scale not stated Description Chronic M4 PT-IP Mobility and Gait Start: 03/15/18 09:27 Freq: NEEDED Status: Active Protocol: Document 03/17/18 10:24 (Rec: 03/17/18 13:20 [id number]) PT-Bed Mobility Assessment Scooting Scooting to Edge of Bed Contact Guard Assistance Minimal Assistance PT-Transfer Assessment Sit to and From Stand Sit to and from Stand Maximum Assistance 1 Person Assistance Use of Upper Extremities Equipment Transfer Assistive Device Gait Belt Front Wheeled Walker Orthotic/Prosthetic Devices or Brace: No Comments Mobility Comments Sit <>stand performed 3X with effort and max A to get to upright position and max cues. pt completed [address] with FWW mod A for steadiness and max cues. Pt also required max A for controlled descent to chair with max cues. O2 sat drops to 90% with sit<> stand activity and instructed with deep breathing and O2 sat to 97% after few seconds rest. M5 PT-IP Objective Assessments Start: 03/15/18 09:27 Freq: NEEDED Status: Active Protocol: Document 03/15/18 13:40 RS (Rec: 03/15/18 14:01 RS [email or web address]) Gross Range of Motion Upper Extremity ROM Assessment Within Functional Limits Lower Extremity ROM Assessment Right Impaired Impairments R knee limited due to pain Strength Comments Strength Comments formal MMT not performed, functionally pt is grossly weak with poor endurance M6 PT-IP Treatment Start: 03/15/18 09:27 Freq: NEEDED Status: Active Protocol: Document 03/17/18 10:24 (Rec: 03/17/18 13:03 [id number]) Physical Therapy Treatment Education Education Provided Safety Other Treatments Other Treatment Performed UE presses X10. Wrist flexion/extension X10. Abdominal breathing. M7 PT-IP Assessment and Plan Start: 03/15/18 09:27 Freq: NEEDED Status: Active Protocol: Document 03/17/18 10:24 (Rec: 03/17/18 13:03 [id number]) PT Summary Assessment and Plan Potential Rehabilitation Potential Good Summary Impairments Pain ROM Strength Balance Coordination Cognition Bed Mobility Transfers Gait Activity Tolerance Progress Towards Goals Slow Progress due to Pain Slow Progress due to Medical Issues Slow Progress due to Activity Tolerance Assessment Summary Pt requiring max A, cuing and multiple attempts for sit <> stand . Was tired after today 's session but maintains 02 sats at 90-97%. Recommending SNF rehab for d/c as patient has potential to make gains in skilled PT to decrease her level of assist and decrease caregiving burden. Pt living at [facility] prior to admission and may be safe to go back as long as they are able to provide up to 2 person maxA for all transfers and ambulation. If pt is going back to [facility], pt will benefit from homehealth PT. Goals Bed Mobility Goal Moderate Assistance Transfer Goal Moderate Assistance Front Wheeled Walker Gait Goal Minimal Assistance Front Wheel Walker Gait Distance 10 Days to Meet Goals 5 Frequency of Treatment Frequency Of Treatment Twice a Day Treatment Plan Physical Therapy Treatment Plan Bed Mobility Training Transfer Training Gait Training Balance Retraining Neuromuscular Re-ed Recommendations To Nursing Amount of Assist Needed 2 Person Assist Discharge Recommendations PT Discharge Recommendations Home with 24/ Assist Home Health SNF Rehab Other Discharge Recommendations SNF vs [facility] and home health PT
[2018-03-17 11:00] VITALS: O2SAT 90
--- NOTE | 2018-03-17 11:19 | PC.NURSE ---
PT PREPARING FOR DISCHARGE - RT ASSESSED PT AND SHE DOES NOT QUALIFY FOR HOME O2 USE- SHE REALLY NEEDS TO USE HER CPAP AT TIME OF SLEEP ROUTINELY- PLAN IS TO RETURN HOME TO [facility] THIS DATE
--- NOTE | 2018-03-17 12:09 | CM.DPC ---
DCP Cont: Dr. Bullard writing orders to discharge patient, stated that her oxygen saturations have been normal. Called Maria E at [facility], stated that nursing would come out to evaluate patient before discharging back to [facility]. Went ahead and had hospitalist sign face to face for home health as well. P: Will continue to follow up with [facility] on status. Emeli Ruboi RN/[employer]
--- NOTE | 2018-03-17 12:57 | CM.DPC ---
DCP Cont: Patient will be discharged to [facility] today between 1:30-2:00. Did speak to Maria E, who is in admissions, and stated that they do offer P.T, O.T, as well as speech on an outpatient basis. Called [facility], for family has requested this agency, and was informed that they could see patient this Wednesday if nursing is ordered. Updated family, spoke to jeannette Peña, who feels that this may be more in patient's benefit. Went ahead and called [facility] back to confirm that they could see patient Wednesday. P: Patient is to be discharged to [facility] today, and will have home health services. Emeli Rubio RN/Docket Specialist
--- NOTE | 2018-03-17 17:56 | P.DS_ITS ---
History of Present Illness Chief complaint: Shortness breath, confusion, low oxygen Narrative: Shortness breath, confusion, low oxygen Narrative: Patient is a very pleasant 63 years of age female that resides at a local assisted living facility. Patient was brought to the emergency room with chief complaint of shortness of breath. Patient is a bit vague is as to how long she has been having this shortness of breath but appears to be over the last several days. Patient did know the year is 2007 and the president and chief executive officer is Ashish Doll. For the most part patient appears to be a reliable historian. No recent nausea no weakness to extremities that appear new. Patient does note that she has difficulty with ambulating due to inability to control her lower extremities. The ER physician notes patient with a blood gas with a pCO2 of 70. She was also hypoxemic. Fortunately 1 L of nasal cannula oxygen flow appeared to stabilize her readily in the ER. I was requested to admit the patient for further workup regarding her hypercapnic hypoxemic respiratory failure. Discharge Providers Date of admission: 03/16/18 10:25 Primary care physician: ISAK Woodson Consults: 03/14/18 11:21 Consult to Respiratory Therapy Evaluate & Treat Comment: Physician Instructions: Evaluate and treat 03/14/18 17:34 Consult to Occupational Therapy Evaluate & Treat Comment: Physician Instructions: Evaluate and treat Consult to Physical Therapy Evaluate & Treat Comment: Physician Instructions: Evaluate and Treat Consult to Speech Therapy Evaluate & Treat Comment: eval for aspiration risk Physician Instructions: Evaluate and treat 03/14/18 17:35 Consult to Respiratory Therapy Evaluate & Treat Comment: set up C-PAP Mask at 12 cm H2O Physician Instructions: Evaluate and treat 03/14/18 17:52 Consult to Dietitian, Adult Routine Comment: Reason For Exam: assessed at high risk 03/17/18 12:41 Consult to Home Health Routine Comment: Generalized weakness Reason For Exam: Nursing, P.T, O.T,Speech Discharge provider: Brandy Bullard MD Discharge Date: 03/17/18 Exam Vital Signs (past 8 hours): - 03/17/18 07:25 03/17/18 09:11 03/17/18 11:00 Temperature 98 F Pulse Rate 60 Respiratory Rate 11 L Blood Pressure 89/46 L Pulse Oximetry 98 90 L 90 L Fraction of Inspired Oxygen 0.25 Oxygen Delivery Method Room Air Oxygen Flow Rate 0 Objective Labs Result Diagrams: 03/17/18 06:20 03/17/18 06:20 Labs: Laboratory Results - last 24 hr 03/16/18 03/17/18 03/17/18 16:57 06:20 06:20 WBC 7.9 RBC 4.12 Hgb 12.3 Hct 37.8 MCV 91.6 MCH 29.8 MCHC 32.5 RDW 15.7 H Plt Count 211 Neut % (Auto) 68.4 Lymph % (Auto) 21.8 L [place] % (Auto) 8.2 Eos % (Auto) 1.3 L Baso % (Auto) 0.3 Neut # (Auto) 5400 ABG pH 7.40 ABG pCO2 67.8 H* ABG pO2 82 ABG HCO3 42 H ABG Total CO2 44 H ABG O2 Saturation 95 ABG Base Excess 17.0 H FiO2 0.25 Sodium 143 Potassium 4.5 Chloride 95 L Carbon Dioxide 41 H* BUN 27 H Creatinine 0.70 Estimated GFR > 60.0 BUN/Creatinine Ratio 38.6 H Glucose 98 Calcium 9.4 Total Bilirubin 0.4 AST 22 ALT 21 Alkaline Phosphatase 77 Total Protein 6.6 Albumin 3.8 Globulin 2.8 Albumin/Globulin Ratio 1.4 Discharge Plan Discharge Plan Patient Disposition: Assisted Living Transportation: Ambulance Discharge comment: Patient needs outpatient referral to neurology and pulmonary - She likely needs a repeat sleep study to determine if her CPAP settings are appropriate provided patient will use the CPAP I certify the postop hospital assisted care is medically necessary on a continuing basis for any conditions for which he/ she received care during this hospitalization.: Yes The receiving facility has agreed to accept transfer and provide medical treatment.: Yes Discharge Med Rec/Prescriptions Prescriptions: Continue multivitamin Tablet 1 tab PO DAILY RF: 0 atorvastatin 40 mg Tablet 40 mg PO QPM RF: 0 sennosides [senna] 8.6 mg Tablet 8.6 mg PO BEDTIME RF: 0 acetaminophen 325 mg Tablet 650 mg PO Q6H PRN (Reason: pain or fever) RF: 0 paroxetine HCl 10 mg Tablet 10 mg PO DAILY RF: 0 tizanidine 4 mg Tablet 4 mg PO Q6H PRN (Reason: Muscle Spasm) RF: 0 melatonin 3 mg Tablet 3 mg PO BEDTIME PRN (Reason: Sleep) RF: 0 acetaminophen-codeine 300-30 mg Tablet 1 tab PO TID PRN (Reason: pain) RF: 0 aspirin 81 mg Tablet,Delayed Release (Dr/Ec) 1 tab PO DAILY RF: 0 magnesium hydroxide [Milk of Magnesia] 400 mg/5 mL Suspension 30 ml PO DAILY RF: 0 trazodone 100 mg Tablet 100 mg PO BEDTIME PRN (Reason: Insomnia) RF: 0 nystatin 100,000 unit/gram Cream 1 applic TOPICAL BID RF: 0 lidocaine 5 % Adhesive Patch,Medicated 2 patch TOPICAL DAILY RF: 0 metoprolol succinate 25 mg Tablet Extended Release 24 Hr 25 mg PO DAILY RF: 0 buspirone 15 mg Tablet 15 mg PO TID RF: 0 Saccharomyces boulardii [Florastor] 250 mg Capsule 250 mg PO BID RF: 0 pregabalin [Lyrica] 75 mg Capsule 75 mg PO BID RF: 0 Discontinued lorazepam 0.5 mg Tablet 1 tab PO Q6H RF: 0 Follow up/Referrals: Estefani Mcnamara ARNP [Primary Care Provider] - 1 Week (Needs referral to Neurology-re metabolic encephalopathy and mental status Needs referral to Pulmonary for reevaluation of sleep apnea, hypoxia, and chronic hypercpnea) Discharge Orders: Discharge (Order); Ordered 03/17/18 Ordered By: Brandy Bullard Provider Discharge Instructions Diet: Diet as Tolerated Liquid consistency: Normal/Thin Food texture: Regular Activity: as tolerated Discharge Data Primary Care Provider: Estefani Mcnamara Attending Provider: Marco Mccarthy Admit Date/Time: 03/16/18 10:25 Discharges patient from system. Discharge Date/Time: 03/17/18 13:25
[2018-04-15 14:42] LABS: PCO2 ABG 68.2 mmHg (35-45)
[2018-04-15 14:44] LABS: PCO2 ABG 67.8 mmHg (35-45)
== END 2018-03-17 13:25 | DRG 189 ==
LOC: ED 15:26 → AC 15:27 → ICU 16:30
PROVIDERS: Internal Medicine; Admitting Provider Internal Medicine; Emergency Provider Emergency Medicine; PCP Registered Nurse; Visit Provider Internal Medicine
DX: J96.22 Acute and chronic respiratory failure with hypercapnia (principal); G93.41 Metabolic encephalopathy; E87.3 Alkalosis; N39.0 Urinary tract infection, site not specified; J96.21 Acute and chronic respiratory failure with hypoxia; G47.33 Obstructive sleep apnea (adult) (pediatric); Z99.3 Dependence on wheelchair; Z86.73 Personal history of transient ischemic attack (TIA), and cerebral infarction without residual deficits; R01.1 Cardiac murmur, unspecified; R91.1 Solitary pulmonary nodule; F32.9 Major depressive disorder, single episode, unspecified; F41.9 Anxiety disorder, unspecified
CPT/HCPCS: 36415; 36591; 36600; 70551; 71045; 71275; 80048; 80053; 81003; 81015; 82550; 82805; 83036; 83605; 83880; 84145; 84484; 85025; 85379; 87040; 87077; 87086; 87186; 87797; 92610; 93005; 94618; 94660; 94762; 96125; 96365; 97110; 97162; 97166; 97530; 97535; 99284; 99285; G0378; C8929; J1650; Q9967

== ENCOUNTER → 2018-03-30 08:27 | Outpatient (REF) | payer MEDICARE, OTHER, SELFPAY ==
[2018-03-14 16:32] VITALS: BMI 25.9
[2018-03-16 18:24] VITALS: PULSE 71; RESP 19; O2SAT 96
[2018-03-30 09:10] LABS: Blood Urea Nitrogen 20 mg/dL (7-17); Carbon Dioxide 35 mmol/L (22-32); Chloride 98 mmol/L (98-107); Estimated Glomerular Filt Rate > 60.0 mL/min (>60); Glucose 88 mg/dL (80-110); Sodium 140 mmol/L (137-145)
[2018-03-30 09:13] LABS: HEMOLYSIS 57 (0-50); Potassium 4.5 mmol/L (3.4-5.1)
== END ==
LOC: LAB 08:27
PROVIDERS: PCP Registered Nurse; Visit Provider Nurse Practitioner Family
DX: J96.90 Respiratory failure, unspecified, unspecified whether with hypoxia or hypercapnia (principal)
CPT/HCPCS: 36415; 80048

== ENCOUNTER → 2018-04-27 08:11 | Outpatient (REF) | payer MEDICARE, OTHER, SELFPAY ==
[2018-03-14 16:32] VITALS: BMI 25.9
[2018-03-16 18:24] VITALS: PULSE 71; RESP 19; O2SAT 96
[2018-04-27 08:36] LABS: Add Manual Diff / Slide Review NO; Basophils Percent Auto 0.3 % (0-2); Eosinophils Percent Auto 1.4 % (2-4); Hematocrit 38.8 % (36-46); Hemoglobin 12.7 g/dL (12.0-16.0); Lymphocytes Percent Auto 24.6 % (25-40); Mean Corpuscular HGB Conc 32.6 % (30-36); Mean Corpuscular Hemoglobin 30.2 PG (26-34); Mean Corpuscular Volume 92.5 fL (80-100); Monocytes Percent Auto 7.3 % (3-14); Neutrophils Absolute Auto 4600 /uL (3000-5900); Neutrophils Percent Auto 66.4 % (50-75); Platelet Count 238 X10^3/uL (150-400); Red Cell Distribution Width 15.3 % (11.6-14.8); White Blood Cell Count 6.9 X10^3/uL (4.5-11.0)
[2018-04-27 08:53] LABS: Blood Urea Nitrogen 19 mg/dL (7-17); Calcium 9.2 mg/dL (8.4-10.2); Carbon Dioxide 35 mmol/L (22-32); Chloride 99 mmol/L (98-107); Estimated Glomerular Filt Rate > 60.0 mL/min (>60); Glucose 99 mg/dL (80-110); HEMOLYSIS 16 (0-50); Potassium 4.3 mmol/L (3.4-5.1); Sodium 142 mmol/L (137-145)
[2018-04-27 10:34] LABS: RBC Urine None Seen (0-5/HPF)
[2018-04-27 10:39] LABS: Appearance Urine UA CLEAR; Bilirubin Urine UA NEGATIVE (NEGATIVE); Color Urine UA YELLOW; Glucose Urine UA NEGATIVE (Normal); Ketones Urine UA NEGATIVE (NEGATIVE); Leukocyte Esterase Urine UA 1+ (NEGATIVE); Nitrite Urine UA NEGATIVE (Negative); Occult Blood Urine UA NEGATIVE (Negative); Protein Urine UA NEGATIVE (Negative); Specific Gravity Urine UA <=1.005 (1.000-1.035); Urobilinogen Urine UA 0.2 E.U./dL (0.2); pH Urine UA 6.5 (4.5-8.0)
[2018-04-27 10:57] LABS: Bacteria Urine Occasional (0-1); Squamous Epithelial Cell Urine 5-10 /HPF; WBC Urine 1-5/HPF (0-5/HPF)
[2018-04-27 11:01] LABS: Culture Indicated Urine Cult Not Indicated
== END ==
LOC: LAB 08:11
PROVIDERS: Internal Medicine; PCP Registered Nurse; Visit Provider Nurse Practitioner Family
DX: R06.89 Other abnormalities of breathing (principal); R35.0 Frequency of micturition
CPT/HCPCS: 36415; 80048; 81001; 85025

== ENCOUNTER → 2018-06-01 15:58 | Outpatient (REF) | payer MEDICARE, OTHER, SELFPAY ==
[2018-03-14 16:32] VITALS: BMI 25.9
[2018-03-16 18:24] VITALS: PULSE 71; RESP 19; O2SAT 96
[2018-06-01 16:01] LABS: Bacteria Urine None Seen; RBC Urine None Seen (0-5/HPF); WBC Urine None Seen (0-5/HPF)
[2018-06-01 16:04] LABS: Appearance Urine UA CLEAR; Bilirubin Urine UA NEGATIVE (NEGATIVE); Color Urine UA YELLOW; Glucose Urine UA NEGATIVE (Normal); Ketones Urine UA NEGATIVE (NEGATIVE); Leukocyte Esterase Urine UA TRACE (NEGATIVE); Nitrite Urine UA NEGATIVE (Negative); Occult Blood Urine UA NEGATIVE (Negative); Protein Urine UA NEGATIVE (Negative); Urobilinogen Urine UA 0.2 E.U./dL (0.2)
[2018-06-01 16:23] LABS: Squamous Epithelial Cell Urine 0-1 /HPF
== END ==
LOC: LAB 15:58
PROVIDERS: PCP Registered Nurse; Visit Provider Nurse Practitioner Family
DX: R35.0 Frequency of micturition (principal); R30.0 Dysuria
CPT/HCPCS: 81001

== ENCOUNTER → 2018-07-13 15:04 | Outpatient (CLI) | payer MEDICARE, OTHER, SELFPAY ==
[2018-03-14 16:32] VITALS: BMI 25.9
[2018-03-16 18:24] VITALS: PULSE 71; RESP 19; O2SAT 96
--- NOTE | 2018-07-13 | DI.RAD.S_ITS ---
PROCEDURE: XR KNEE LT 1TO2V INDICATIONS: LEFT KNEE PAIN TECHNIQUE: 2 views of the knee were acquired. COMPARISON: [facility], CR, XR KNEE 3 VIEWS BILATERAL, 12/27/2017, 11:43. FINDINGS: Bones: No fractures or dislocations. No suspicious bony lesions. [id number] left knee joint degeneration with pronounced joint space narrowing involving the medial compartment however this appears unchanged. Diffuse degenerative bulky osteophyte formation. Soft tissues: No joint effusion. No suspicious soft tissue calcifications. 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 Dictated by: Cortes Hinton M.D. on 07/13/2018 at 16:37 Approved by: Cortes Hinton M.D. on 07/13/2018 at 16:38
== END ==
PROVIDERS: PCP Registered Nurse; Visit Provider Nurse Practitioner Family
DX: M25.562 Pain in left knee (principal); M17.12 Unilateral primary osteoarthritis, left knee
CPT/HCPCS: 73560

== ENCOUNTER → 2018-07-15 08:30 | Outpatient (REF) | payer MEDICARE, OTHER, SELFPAY ==
[2018-03-14 16:32] VITALS: BMI 25.9
[2018-03-16 18:24] VITALS: PULSE 71; RESP 19; O2SAT 96
[2018-07-15 09:13] LABS: Add Manual Diff / Slide Review NO; Basophils Absolute Auto 0 /uL (0-100); Basophils Percent Auto 0.5 % (0-2); Eosinophils Absolute Auto 100 /uL (0-450); Hematocrit 39.8 % (36-46); Hemoglobin 12.8 g/dL (12.0-16.0); Lymphocytes Absolute Auto 1900 /uL (1100-4500); Lymphocytes Percent Auto 26.8 % (25-40); Mean Corpuscular HGB Conc 32.2 % (30-36); Mean Corpuscular Hemoglobin 30.7 PG (26-34); Mean Corpuscular Volume 95.5 fL (80-100); Monocytes Absolute Auto 600 /uL (0-900); Monocytes Percent Auto 7.8 % (3-14); Neutrophils Absolute Auto 4500 /uL (1500-7000); Neutrophils Percent Auto 62.9 % (50-75); Platelet Count 225 X10^3/uL (150-400); Red Blood Cell Count 4.16 X10^6/uL (4.0-5.2); Red Cell Distribution Width 14.5 % (11.6-14.8); White Blood Cell Count 7.2 X10^3/uL (4.5-11.0)
[2018-07-15 09:46] LABS: Blood Urea Nitrogen 13 mg/dL (7-17); Calcium 8.9 mg/dL (8.4-10.2); Carbon Dioxide 36 mmol/L (22-32); Chloride 96 mmol/L (98-107); Estimated Glomerular Filt Rate > 60.0 mL/min (>60); Glucose 97 mg/dL (80-110); HEMOLYSIS < 15 (0-50); Potassium 4.6 mmol/L (3.4-5.1); Sodium 141 mmol/L (137-145)
== END ==
LOC: LAB 08:30
PROVIDERS: PCP Registered Nurse; Visit Provider Nurse Practitioner Family
DX: Z79.899 Other long term (current) drug therapy (principal)
CPT/HCPCS: 36415; 80048; 85025

== ENCOUNTER 2018-07-18 11:01 | Inpatient (IN) | payer MEDICARE, OTHER, SELFPAY ==
[2018-03-14 16:32] VITALS: BMI 25.9
[2018-03-16 18:24] VITALS: PULSE 71; RESP 19; O2SAT 96
[2018-07-18] VITALS (13 sets, daily range): BP systolic 85–148; BP diastolic 58–87; PULSE 65–79; RESP 11–24; TEMP 36.3–36.6; O2SAT 84–100; BMI 26.6; BMI 29.8
--- NOTE | 2018-07-18 11:10 | ED.SOB ---
HPI - SOB/Dyspnea General Chief Complaint: Weakness Stated Complaint: SOB Time Seen by Provider: 07/18/18 11:09 Source: patient Mode of arrival: wheelchair Limitations: no limitations History of Present Illness Patient is a 63-year-old female was brought over by wheelchair from her assisted living facility. Patient states that she is unsure why she is here however she thinks it was because her heart rate and her oxygen saturations were low. She does not describe any shortness of breath. She states that she generally does not feel very well. No chest pain. No headache. She does have bilateral lower extremity weakness but this is not new for her. Related Data Home Medications Medication Instructions Recorded Confirmed Saccharomyces boulardii [Florastor] 250 mg PO BID 03/14/18 07/18/18 acetaminophen 650 mg PO Q6H PRN 03/14/18 07/18/18 acetaminophen-codeine 1 tab PO TID PRN 03/14/18 07/18/18 aspirin 1 tab PO DAILY 03/14/18 07/18/18 atorvastatin 40 mg PO QPM 03/14/18 07/18/18 buspirone 15 mg PO TID 03/14/18 07/18/18 magnesium hydroxide [Milk of 30 ml PO DAILY PRN 03/14/18 07/18/18 Magnesia] melatonin 3 mg PO BEDTIME PRN 03/14/18 07/18/18 metoprolol succinate 25 mg PO DAILY 03/14/18 07/18/18 multivitamin 1 tab PO DAILY 03/14/18 07/18/18 nystatin 1 applic TOPICAL BID 03/14/18 07/18/18 pregabalin [Lyrica] 75 mg PO BID 03/14/18 07/18/18 sennosides [senna] 8.6 mg PO BEDTIME 03/14/18 07/18/18 tizanidine 4 mg PO Q6H PRN 03/14/18 07/18/18 trazodone 100 mg PO BEDTIME PRN 03/14/18 07/18/18 lidocaine [Aspercreme (lidocaine)] 1 patch TOPICAL DAILY 07/18/18 07/18/18 lorazepam 0.5 mg PO Q6H PRN 07/18/18 07/18/18 menthol [Biofreeze (menthol)] 1 applic TOPICAL BID PRN 07/18/18 07/18/18 paroxetine HCl 20 mg PO DAILY 07/18/18 07/18/18 Allergies Allergy/AdvReac Type Severity Reaction Status Date / Time sulfabenzamide Allergy Verified 03/14/18 10:50 Review of Systems Constitutional Reports fatigue, Denies headache(s) and Reports malaise Eyes Denies change in vision ENT Ears, Nose, Mouth, and Throat: Denies headache(s) Cardiovascular Denies chest pain and Denies dyspnea Respiratory Denies dyspnea Comments: Hypoxia Gastrointestinal Gastrointestinal: Denies abdominal pain, Denies nausea and Denies vomiting Genitourinary Denies dysuria Musculoskeletal Comments: Lower extremity weakness Integumentary/Breasts Denies rash Neurologic Denies headache(s) Endocrine Reports fatigue Hematologic/Lymphatic Comments: Not on anticoagulation [facility] Social History household members: none housing: assisted living facility Smoking Status: Never smoker alcohol intake: current Exam Initial Vital Signs Initial Vital Signs: Vital Signs Temperature 97.9 F 07/18/18 11:13 Pulse Rate 79 07/18/18 11:13 Respiratory Rate 24 07/18/18 11:13 Blood Pressure 103/66 07/18/18 11:13 Pulse Oximetry 84 L 07/18/18 11:13 Const General: cooperative, well developed, well groomed and No acute distress Orientation: alert, awake, oriented to person, not oriented to place (Patient thought that she lived in [place] and was at the [facility] not and [facility].) and oriented to time HENME Head: normal to inspection and normocephalic Resp Effort & Inspection: not labored and tachypneic Auscultation: clear to auscultation bilaterally Cardio Rate: regular rate Rhythm: regular rhythm Heart Sounds: murmur Pulses: radial pulses present GI Inspection: non-distended Palpation: soft, No firm and No tender Skin Lesions: no lesions Rashes: no rashes Neuro General: alert and awake Speech: speech normal Motor: other (4-5 strength bilateral lower extremity) Sensory Exam: no sensory deficits noted Extrem General: normal to inspection and capillary refill normal Psych Appearance: grossly normal and well kempt Course Orders Ordered: ED Orders 07/18/18 11:12 XR chest 1V Stat 07/18/18 11:28 B Type Natriuretic Peptide Stat Complete Blood Count AUTO DIFF Stat Comprehensive Metabolic Panel Stat Lipase Stat Partial Thromboplastin Time Stat Procalcitonin Stat Prothrombin Time INR Stat Troponin I Stat 07/18/18 11:40 EKG-12 Lead Stat 07/18/18 11:43 Arterial Blood Gas Stat 07/18/18 13:18 BiPAP Ventilatory Support RT PROTOCOL Sodium Chloride (Normal Saline 0.9%) 1,000 mls @ 125 mls/hr IV CONT FIDELINA Last Admin: 07/18/18 12:15 Dose: 125 mls/hr Vital Signs - 8 hr 07/18/18 11:13 07/18/18 12:23 Temperature 97.9 F Pulse Rate 79 67 Respiratory Rate 24 11 L Blood Pressure 103/66 Blood Pressure [Right Arm] 85/58 L Pulse Oximetry 84 L 94 MDM - SOB/Dyspnea Medical Records Attestation: I reviewed the patient's medical records. Lab Data Attestation: I reviewed the patient's lab results. Result diagrams: 07/18/18 11:28 07/18/18 11:28 Lab Results 07/18/18 07/18/18 07/18/18 Range/Units 11:28 11:28 11:28 WBC 10.4 (4.5-11.0) X10^3/uL RBC 4.28 (4.0-5.2) X10^6/uL Hgb 13.1 (12.0-16.0) g/dL Hct 41.1 (36-46) % MCV 96.0 (80-100) fL MCH 30.6 (26-34) PG MCHC 31.9 (30-36) % RDW 14.9 H (11.6-14.8) % Plt Count 249 (150-400) X10^3/uL Neut % (Auto) 79.1 H (50-75) % Lymph % (Auto) 14.3 L (25-40) % [place] % (Auto) 5.3 (3-14) % Eos % (Auto) 1.1 L (2-4) % Baso % (Auto) 0.2 (0-2) % Neut # (Auto) 8200 H (5178-7879) /uL Lymph # (Auto) 1500 (6694-2724) /uL [place] # (Auto) 600 (0-900) /uL Eos # (Auto) 100 (0-450) /uL Baso # (Auto) 0 (0-100) /uL PT 11.2 (10.1-12.7) SECONDS INR 1.0 (0.9-1.3) APTT 32 (26.4-36.2) SECONDS ABG pH (7.35-7.45) ABG pCO2 (35-45) mmHg ABG pO2 (80-100) mmHg ABG HCO3 (22-26) mmol/L ABG Total CO2 (21-31) mmol/L ABG O2 Saturation (95-100) % ABG Base Excess (-2-2) mmol/L FiO2 Sodium 138 (137-145) mmol/L Potassium 4.5 (3.4-5.1) mmol/L Chloride 93 L (98-107) mmol/L Carbon Dioxide 38 H (22-32) mmol/L BUN 17 (7-17) mg/dL Creatinine 0.70 (0.52-1.04) mg/dL Estimated GFR > 60.0 (>60) mL/min BUN/Creatinine Ratio 24.3 H (6-22) Glucose 140 H (80-110) mg/dL Calcium 9.1 (8.4-10.2) mg/dL Total Bilirubin 0.5 (0.2-1.3) mg/dL AST 26 (14-36) IU/L ALT 23 (9-52) IU/L Alkaline Phosphatase 91 (38-126) U/L Troponin I < 0.012 (0.01-0.034) ng/mL B-Natriuretic Peptide 138 H (<100) Total Protein 7.0 (6.3-8.2) g/dL Albumin 4.0 (3.5-5.0) g/dL Globulin 3.0 (1.7-4.1) g/dL Albumin/Globulin Ratio 1.3 (1.0-2.8) Lipase 68 (23-300) U/L Procalcitonin (<0.5) ng/mL 07/18/18 07/18/18 Range/Units 11:28 11:43 WBC (4.5-11.0) X10^3/uL RBC (4.0-5.2) X10^6/uL Hgb (12.0-16.0) g/dL Hct (36-46) % MCV (80-100) fL MCH (26-34) PG MCHC (30-36) % RDW (11.6-14.8) % Plt Count (150-400) X10^3/uL Neut % (Auto) (50-75) % Lymph % (Auto) (25-40) % [place] % (Auto) (3-14) % Eos % (Auto) (2-4) % Baso % (Auto) (0-2) % Neut # (Auto) (8860-8802) /uL Lymph # (Auto) (5584-4049) /uL [place] # (Auto) (0-900) /uL Eos # (Auto) (0-450) /uL Baso # (Auto) (0-100) /uL PT (10.1-12.7) SECONDS INR (0.9-1.3) APTT (26.4-36.2) SECONDS ABG pH 7.32 L (7.35-7.45) ABG pCO2 73.1 H* (35-45) mmHg ABG pO2 65 L (80-100) mmHg ABG HCO3 37 H (22-26) mmol/L ABG Total CO2 40 H (21-31) mmol/L ABG O2 Saturation 89 L (95-100) % ABG Base Excess 11.0 H (-2-2) mmol/L FiO2 0.28 Sodium (137-145) mmol/L Potassium (3.4-5.1) mmol/L Chloride (98-107) mmol/L Carbon Dioxide (22-32) mmol/L BUN (7-17) mg/dL Creatinine (0.52-1.04) mg/dL Estimated GFR (>60) mL/min BUN/Creatinine Ratio (6-22) Glucose (80-110) mg/dL Calcium (8.4-10.2) mg/dL Total Bilirubin (0.2-1.3) mg/dL AST (14-36) IU/L ALT (9-52) IU/L Alkaline Phosphatase (38-126) U/L Troponin I (0.01-0.034) ng/mL B-Natriuretic Peptide (<100) Total Protein (6.3-8.2) g/dL Albumin (3.5-5.0) g/dL Globulin (1.7-4.1) g/dL Albumin/Globulin Ratio (1.0-2.8) Lipase (23-300) U/L Procalcitonin < 0.05 (<0.5) ng/mL ABG Data ABG results: PH 7.3 PCO2 73 PO2 65 Bicarb 37 O2 sats 89% Attestation: I personally reviewed and interpreted this ABG as follows: Interpretation: Respiratory acidosis Imaging Data Chest x-ray: Radiologist's impression: [address] [address] XRay Report Signed Patient: Salima Mason#: [id number] : 4Acct:[id number] Age/Sex: 63 / FDate of Service: 07/18/18 Loc: ED Accession Number: [id number] Procedure: XR chest 1V Ordering Provider: Miky Germain D.O. PROCEDURE: XR CHEST 1V INDICATIONS: shortness of breath TECHNIQUE: One view of the chest was acquired. COMPARISON: [facility], , XR CHEST 1V, 03/14/2018, 11:36. FINDINGS: Surgical changes and devices: None. Lungs and pleura: Mild pulmonary vascular congestion is seen. No focal infiltrate. No pleural effusions or pneumothorax. Mediastinum: Mediastinal contours appear normal. Heart size is enlarged. Bones and chest wall: No suspicious bony lesions. Overlying soft tissues appear unremarkable. IMPRESSION: Cardiomegaly and mild congestion. No definite focal infiltrate. Dictated by: Kvng Montejo M.D. on 07/18/2018 at 11:26 Approved by: Kvng Montejo M.D. on 07/18/2018 at 11:28 ECG Data Attestation: I personally reviewed and interpreted this ECG as follows: Prior ECG tracings: not available for review Interpretation: Sinus rhythm Ventricular rate is 68 Normal axis Normal QRS Nonspecific ST T wave changes MDM Narrative Medical decision making narrative: Patient is hypercarbic and hypoxemic. I have some suspicion that she is baseline hypercarbic however I do not know to what level. She was admitted back in March of last year for symptoms that seem very similar to what she presents with today. Patient is not somnolent. Unsure the exact etiology of her hypercarbia. She states she is using her CPAP to sleep at night however unsure if the settings were correct or if she is actually using it or if she actually needs BiPAP. Will place her on BiPAP here in the emergency department secondary to recommendations by the admitting provider. Discussed the case with Dr. Mauro who accepts the patient. Discharge Plan Departure Patient Disposition: Admitted As Inpatient Clinical Impression: Acute on chronic respiratory failure with hypoxia and hypercapnia
[2018-07-18 11:37] LABS: Add Manual Diff / Slide Review NO; Basophils Absolute Auto 0 /uL (0-100); Basophils Percent Auto 0.2 % (0-2); Eosinophils Absolute Auto 100 /uL (0-450); Eosinophils Percent Auto 1.1 % (2-4); Hematocrit 41.1 % (36-46); Hemoglobin 13.1 g/dL (12.0-16.0); Lymphocytes Absolute Auto 1500 /uL (1100-4500); Lymphocytes Percent Auto 14.3 % (25-40); Mean Corpuscular HGB Conc 31.9 % (30-36); Mean Corpuscular Hemoglobin 30.6 PG (26-34); Monocytes Absolute Auto 600 /uL (0-900); Monocytes Percent Auto 5.3 % (3-14); Neutrophils Absolute Auto 8200 /uL (1500-7000); Neutrophils Percent Auto 79.1 % (50-75); Platelet Count 249 X10^3/uL (150-400); Red Blood Cell Count 4.28 X10^6/uL (4.0-5.2); Red Cell Distribution Width 14.9 % (11.6-14.8); White Blood Cell Count 10.4 X10^3/uL (4.5-11.0)
[2018-07-18 11:52] LABS: Prothrombin Time 11.2 SECONDS (10.1-12.7)
[2018-07-18 11:54] LABS: PTT Partial Thromboplastin Tim 32 SECONDS (26.4-36.2)
[2018-07-18 11:56] LABS: B Type Natriuretic Peptide 138 (<100)
[2018-07-18 11:59] LABS: pH ABG 7.32 (7.35-7.45)
[2018-07-18 12:00] LABS: HCO3 ABG 37 mmol/L (22-26); Oxygen Saturation ABG 89 % (95-100); PCO2 ABG 73.1 mmHg (35-45); PO2 ABG 65 mmHg (80-100); TCO2 ABG 40 mmol/L (21-31)
[2018-07-18 12:00] LABS: Alanine Aminotransferase 23 IU/L (9-52); Albumin Globulin Ratio 1.3 (1.0-2.8); Alkaline Phosphatase 91 U/L (38-126); Aspartate Aminotransferase 26 IU/L (14-36); BUN Creatinine Ratio 24.3 (6-22); Bilirubin Total 0.5 mg/dL (0.2-1.3); Blood Urea Nitrogen 17 mg/dL (7-17); Calcium 9.1 mg/dL (8.4-10.2); Carbon Dioxide 38 mmol/L (22-32); Chloride 93 mmol/L (98-107); Estimated Glomerular Filt Rate > 60.0 mL/min (>60); Glucose 140 mg/dL (80-110); HEMOLYSIS < 15 (0-50); Lipase 68 U/L (23-300); Potassium 4.5 mmol/L (3.4-5.1); Sodium 138 mmol/L (137-145)
[2018-07-18 12:01] LABS: Fractionated Inspired Oxygen 0.28
[2018-07-18 12:10] LABS: Procalcitonin < 0.05 ng/mL (<0.5)
[2018-07-18 12:14] LABS: Troponin I < 0.012 ng/mL (0.01-0.034)
[2018-07-18] MEDS: SODIUM CHLORIDE 0.9% 1,000 ML 125 ML IV (12:15)
[2018-07-18 15:17] LABS: Bacteria Urine None Seen; RBC Urine None Seen (0-5/HPF)
[2018-07-18 15:20] LABS: Appearance Urine UA CLEAR; Bilirubin Urine UA NEGATIVE (NEGATIVE); Color Urine UA YELLOW; Glucose Urine UA NEGATIVE (Negative); Ketones Urine UA NEGATIVE (NEGATIVE); Leukocyte Esterase Urine UA NEGATIVE (NEGATIVE); Nitrite Urine UA NEGATIVE (Negative); Occult Blood Urine UA NEGATIVE (Negative); Protein Urine UA NEGATIVE (Negative); Urobilinogen Urine UA 0.2 E.U./dL (0.2)
[2018-07-18 15:31] LABS: WBC Urine 5-10/HPF (0-5/HPF)
[2018-07-18 15:32] LABS: Culture Indicated Urine Cult Not Indicated; Squamous Epithelial Cell Urine 5-10 /HPF
--- NOTE | 2018-07-18 15:36 | PC.NURSE ---
pt admitted from ed on bipap - reports no pain, mrsa swab sent and ua as well-sr/sa
[2018-07-18 16:40] LABS: pH ABG 7.36 (7.35-7.45)
[2018-07-18 16:43] LABS: PCO2 ABG 66.6 mmHg (35-45)
[2018-07-18 16:44] LABS: HCO3 ABG 37 mmol/L (22-26); Oxygen Saturation ABG 97 % (95-100); PO2 ABG 99 mmHg (80-100); TCO2 ABG 39 mmol/L (21-31)
--- NOTE | 2018-07-18 17:46 | PM.HP.1 ---
History of Present Illness Date Patient Seen: 07/18/18 Chief complaint: SOB Narrative: Shirley Bhakta is a 63-year-old female was brought over by wheelchair from her assisted living facility for hypoxemia with oxygen saturations in the low 80s. The patient is unsure why she is here but reports that she believes her oxygen has been low and she has been confused and lost consciousness several times. She endorses that she does not always wear her CPAP at night. She does not describe any shortness of breath. She denies headache, chest pain, shortness of breath, abdominal pain, nausea, vomiting, fever, chills, dysuria, diarrhea constipation. She does endorse mild chronic cough and rhinitis for the last 2 weeks that is slowly improving. She also endorses hot and cold chills all the time. She has chronic bilateral lower extremity weakness which she contributes to her scoliosis and prior back infusion. Patient History Medical History Anxiety (Acute) Cardiomyopathy (Acute) Chronic respiratory failure with hypoxia and hypercapnia (Acute) Diabetes (Acute) Fusion of lumbar spine (Acute) Hypoventilation (Acute) Insomnia (Acute) Lacunar infarction (Acute) Posterior reversible encephalopathy syndrome (Acute) Tardive dyskinesia (Acute) Arthritis of knee (Chronic) Back pain (Chronic) Scoliosis (Chronic) Social History household members: none housing: assisted living facility Smoking Status: Never smoker alcohol intake: current Family & Social History Social History: household members none Prior Living Arrangements Assisted Living Patient lives at assisted living facility. Patient sold her home. Patient has no smoking history she is a nonalcoholic Safety & Behavioral: Feels Safe in Current Yes Environment Been Physically Hurt or No Threatened By a Person Tobacco & Substance use: Smoking Status Never smoker alcohol intake current alcohol intake frequency holiday/special occasion Substance Use Type does not use Meds Home Medications Medication Instructions Recorded Confirmed Type Saccharomyces boulardii [Florastor] 250 mg PO BID 03/14/18 07/18/18 History acetaminophen 650 mg PO Q6H PRN 03/14/18 07/18/18 History acetaminophen-codeine 1 tab PO TID PRN 03/14/18 07/18/18 History aspirin 1 tab PO DAILY 03/14/18 07/18/18 History atorvastatin 40 mg PO QPM 03/14/18 07/18/18 History buspirone 15 mg PO TID 03/14/18 07/18/18 History magnesium hydroxide [Milk of 30 ml PO DAILY PRN 03/14/18 07/18/18 History Magnesia] melatonin 3 mg PO BEDTIME PRN 03/14/18 07/18/18 History metoprolol succinate 25 mg PO DAILY 03/14/18 07/18/18 History multivitamin 1 tab PO DAILY 03/14/18 07/18/18 History nystatin 1 applic TOPICAL BID 03/14/18 07/18/18 History pregabalin [Lyrica] 75 mg PO BID 03/14/18 07/18/18 History sennosides [senna] 8.6 mg PO BEDTIME 03/14/18 07/18/18 History tizanidine 4 mg PO Q6H PRN 03/14/18 07/18/18 History trazodone 100 mg PO BEDTIME PRN 03/14/18 07/18/18 History lidocaine [Aspercreme (lidocaine)] 1 patch TOPICAL DAILY 07/18/18 07/18/18 History lorazepam 0.5 mg PO Q6H PRN 07/18/18 07/18/18 History menthol [Biofreeze (menthol)] 1 applic TOPICAL BID PRN 07/18/18 07/18/18 History paroxetine HCl 20 mg PO DAILY 07/18/18 07/18/18 History Allergies Allergy/AdvReac Type Severity Reaction Status Date / Time bee venom protein (honey bee) Allergy unknown Verified 07/18/18 18:50 sulfabenzamide Allergy Verified 03/14/18 10:50 Review of Systems Review of Systems A 10 system comprehensive review of systems was conducted with the patient and found to be negative except as above in the History of Present Illness. Exam Vital Signs (past 8 hours): - 07/18/18 11:13 07/18/18 12:23 07/18/18 13:47 Temperature 97.9 F Pulse Rate 79 67 65 Respiratory Rate 24 11 L 16 Blood Pressure 103/66 Blood Pressure [Right Arm] 85/58 L 106/65 Pulse Oximetry 84 L 94 98 07/18/18 14:41 07/18/18 16:03 07/18/18 16:29 Temperature 97.4 F L 97.6 F Pulse Rate 67 71 Respiratory Rate 18 22 Blood Pressure 108/69 148/87 H 148/87 H Blood Pressure [Right Arm] Pulse Oximetry 99 Fraction of Inspired Oxygen 30 Oxygen Delivery Method BiPAP Oxygen Flow Rate 3 Narrative Exam Narrative: General: Middle-aged female sitting in bed and in no acute distress, well-developed, well-nourished, appropriately interactive. HEENT: Normocephalic, atraumatic. External ears without defect. Pupils equal, round, and reactive to light. Anicteric sclerae, moist conjunctivae, and no lid lag. Oropharynx free of erythema and cobble stoning with moist mucosa. Neck: Supple with full range of motion. No jugular venous distension. No bruits. No lymphadenopathy or thyromegaly. Cardiovascular: Regular rate and rhythm without murmurs, rubs, or gallops appreciated Pulmonary: Diminished lung sounds throughout but clear to auscultation bilaterally without crackles, wheezes, or rhonchi. Normal respiratory effort with no use of accessory muscles. Abdomen: Soft, bowel sounds present, nontender, nondistended. No hepatosplenomegaly or masses appreciated. Extremities: No clubbing, cyanosis, or edema. Skin: Normal temperature, turgor, and texture; no rash, ulcers, or subcutaneous nodules appreciated. Neurological: Cranial nerves grossly intact. Psychiatric: Normal mood and affect. Alert and oriented to person, place, and time. Mild cognitive impairment that is likely chronic. Objective Labs Result Diagrams: 07/18/18 11:28 07/18/18 11:28 Labs: Laboratory Results - last 24 hr 07/18/18 07/18/18 07/18/18 11:28 11:28 11:28 WBC 10.4 RBC 4.28 Hgb 13.1 Hct 41.1 MCV 96.0 MCH 30.6 MCHC 31.9 RDW 14.9 H Plt Count 249 Neut % (Auto) 79.1 H Lymph % (Auto) 14.3 L [place] % (Auto) 5.3 Eos % (Auto) 1.1 L Baso % (Auto) 0.2 Neut # (Auto) 8200 H Lymph # (Auto) 1500 [place] # (Auto) 600 Eos # (Auto) 100 Baso # (Auto) 0 PT 11.2 INR 1.0 APTT 32 ABG pH ABG pCO2 ABG pO2 ABG HCO3 ABG Total CO2 ABG O2 Saturation ABG Base Excess FiO2 Sodium 138 Potassium 4.5 Chloride 93 L Carbon Dioxide 38 H BUN 17 Creatinine 0.70 Estimated GFR > 60.0 BUN/Creatinine Ratio 24.3 H Glucose 140 H Calcium 9.1 Total Bilirubin 0.5 AST 26 ALT 23 Alkaline Phosphatase 91 Troponin I < 0.012 B-Natriuretic Peptide 138 H Total Protein 7.0 Albumin 4.0 Globulin 3.0 Albumin/Globulin Ratio 1.3 Lipase 68 Procalcitonin Urine Color Urine Appearance Urine pH Ur Specific Kim Urine Protein Urine Glucose (UA) Urine Ketones Urine Occult Blood Urine Nitrate Urine Bilirubin Urine Urobilinogen Ur Leukocyte Esterase Urine RBC Urine WBC Ur Squamous Epith Cells Urine Bacteria Ur Culture Indicated? Nasal Screen MRSA (PCR) 07/18/18 07/18/18 07/18/18 11:28 11:43 15:00 WBC RBC Hgb Hct MCV MCH MCHC RDW Plt Count Neut % (Auto) Lymph % (Auto) [place] % (Auto) Eos % (Auto) Baso % (Auto) Neut # (Auto) Lymph # (Auto) [place] # (Auto) Eos # (Auto) Baso # (Auto) PT INR APTT ABG pH 7.32 L ABG pCO2 73.1 H* ABG pO2 65 L ABG HCO3 37 H ABG Total CO2 40 H ABG O2 Saturation 89 L ABG Base Excess 11.0 H FiO2 0.28 Sodium Potassium Chloride Carbon Dioxide BUN Creatinine Estimated GFR BUN/Creatinine Ratio Glucose Calcium Total Bilirubin AST ALT Alkaline Phosphatase Troponin I B-Natriuretic Peptide Total Protein Albumin Globulin Albumin/Globulin Ratio Lipase Procalcitonin < 0.05 Urine Color Urine Appearance Urine pH Ur Specific Kim Urine Protein Urine Glucose (UA) Urine Ketones Urine Occult Blood Urine Nitrate Urine Bilirubin Urine Urobilinogen Ur Leukocyte Esterase Urine RBC Urine WBC Ur Squamous Epith Cells Urine Bacteria Ur Culture Indicated? Nasal Screen MRSA (PCR) Negative for mrsa 07/18/18 07/18/18 15:00 16:05 WBC RBC Hgb Hct MCV MCH MCHC RDW Plt Count Neut % (Auto) Lymph % (Auto) [place] % (Auto) Eos % (Auto) Baso % (Auto) Neut # (Auto) Lymph # (Auto) [place] # (Auto) Eos # (Auto) Baso # (Auto) PT INR APTT ABG pH 7.36 ABG pCO2 66.6 H* ABG pO2 99 ABG HCO3 37 H ABG Total CO2 39 H ABG O2 Saturation 97 ABG Base Excess 12.0 H FiO2 0.30 Sodium Potassium Chloride Carbon Dioxide BUN Creatinine Estimated GFR BUN/Creatinine Ratio Glucose Calcium Total Bilirubin AST ALT Alkaline Phosphatase Troponin I B-Natriuretic Peptide Total Protein Albumin Globulin Albumin/Globulin Ratio Lipase Procalcitonin Urine Color Yellow Urine Appearance Clear Urine pH 7.0 Ur Specific Kim 1.020 Urine Protein Negative Urine Glucose (UA) Negative Urine Ketones Negative Urine Occult Blood Negative Urine Nitrate Negative Urine Bilirubin Negative Urine Urobilinogen 0.2 Ur Leukocyte Esterase Negative Urine RBC None seen Urine WBC 5-10/hpf H Ur Squamous Epith Cells 5-10 /hpf H Urine Bacteria None seen Ur Culture Indicated? Cult not indicated Nasal Screen MRSA (PCR) Assessment & Plan Plan: Assessment/Plan Narrative: Shirley Mason is a 63-year-old female with a past medical history significant for chronic hypoxemic and hypercarbic respiratory failure secondary to GREGORIO noncompliant with CPAP, anxiety, scoliosis with disability, and cardiomyopathy who presented from assisted living facility due to hypoxemia with oxygen saturations in the low 80s. 1. Acute on chronic hypoxemic and hypercarbic respiratory failure, present on admission. Active. -Patient presented from assisted living facility for hypoxemia with oxygen saturations in the low 80s. SpO2 as low as 84% on arrival. -Patient has longstanding history of hypoxemia and hypercarbia likely secondary to OHS, GREGORIO noncompliant with CPAP, possible restrictive lung disease from scoliosis. The patient has not been seen by pulmonology ever and has an appointment to establish care with pulmonology on Saturday 07/22. -ABG demonstrated pH 7.36, pCO2 66.6, PO2 99, HC03 37 on FiO2 of 30% with SpO2 97% congressional representative of compensated respiratory acidosis with metabolic alkalosis. -No infectious signs or symptoms. Afebrile. No leukocytosis. -Ordered furosemide 20 mg p.o. x1 and will assess for improvement in breathing. -Patient likely needs to be on BiPAP chronically and will have RT and [facility] assess for Trilogy. c 2. Cardiomyopathy, unclear type, chronic present on admission. Stable. -Continue home meds including aspirin 81 mg daily, atorvastatin 40 mg daily at bedtime, and metoprolol succinate 25 mg daily. 3. Anxiety, chronic, present on admission. Stable. -Continue paroxetine 20 mg daily and buspirone 15 mg 3 times daily. -Patient does exhibit tardive dyskinesia unclear etiology but likely due to medications prescribed in the past. 4. Insomnia, chronic, present on admission. Stable. -Continue home medications including trazodone 100 mg at bedtime. 5. Back pain and muscle spasm, chronic, present on admission. Stable. -Continue to day tizanidine and Lyrica. Patient is admitted under observation status with expected length of stay less than 2 midnights due to severity of presenting symptoms, risk of adverse event, and complexity of treatment plan. Quality VTE Deep Vein Thrombosis/Pulmonary Embolism Present on Admission: No
[2018-07-18] MEDS: FUROSEMIDE 20 MG TABLET PO (18:42)
--- NOTE | 2018-07-18 19:10 | PC.NURSE ---
Addendum entered by Amena Franco R.N. 07/18/18 22:04: 2130 - Pt drowsy, decreased sats to 83% on 2L with sleep. RT to replace bi-pap. Pt expressing concerns about ability to tolerate mask. Monitor. Original Note: 1600 - Pt requesting to have bi-pap off. Discussed ABG result, encourage pt to leave mask on until dinner time. Pt agreeable. 1700 - Dr. Mauro into see pt. Pt a bit of a poor historian. Collection of hx from past admission and [facility] info. Pt denies pain. Reports chronic O2 use, most all the time. however unable to state liter amount, Placed on 2l when bi-pap removed for meal. Call placed to [facility] requesting pt own mask may use if compatible. Nasal pillow mask provided. RT notified not full mouth/nose mask.
[2018-07-18] MEDS: PREGABALIN 75 MG CAPSULE PO (20:47)
[2018-07-18] MEDS: BUSPIRONE 15 MG TABLET PO (20:47)
[2018-07-18] MEDS: MELATONIN 3 MG TABLET PO (20:47)
[2018-07-18] MEDS: SENNOSIDES 8.6 MG TABLET PO (20:47)
[2018-07-18] MEDS: TRAZODONE 100 MG TABLET PO (20:47)
[2018-07-18] MEDS: HEPARIN 5,000 UNIT/ML VIAL 5000 UNIT SUBCUT (20:48)
[2018-07-18] MEDS: LACTOBACILLUS ACIDOPHILUS TABLET 1 EACH PO (20:48)
[2018-07-19] VITALS (16 sets, daily range): BP systolic 81–102; BP diastolic 45–71; PULSE 59–69; RESP 12–34; TEMP 30.9–37; O2SAT 92–98; BMI 29.0
[2018-07-19] MEDS: LORazepam 0.5 MG TABLET PO (01:08)
[2018-07-19] MEDS: CODEINE/ACETAMINOPHEN 30/300 TABLET 1 TAB PO ×2 (01:08→08:07)
--- NOTE | 2018-07-19 06:49 | PC.NURSE ---
Patient restless, only tolerates Bi-pap for short periods, significant apnea noted, desats to 70% when on RA, SpO2 maintains >90% on 2L NC until patient pulls it off while sleeping. RR 10-20s, breath sounds clear anteriorly, diminished posterior bases, no cough or complaints of dyspnea. RT placed her on VentiMask in am, SpO2 >94%. ST, BP 80s-90s/50s MAP 60s. Uses bedpan plus is incontinent.
[2018-07-19] MEDS: ASPIRIN EC 81 MG TABLET PO (08:08)
[2018-07-19] MEDS: PREGABALIN 75 MG CAPSULE PO (08:08)
[2018-07-19] MEDS: BUSPIRONE 15 MG TABLET PO (08:08)
[2018-07-19] MEDS: METOPROLOL ER 25 MG TABLET PO (08:09)
[2018-07-19] MEDS: PARoxetine 20 MG TABLET PO (08:09)
[2018-07-19] MEDS: LACTOBACILLUS ACIDOPHILUS TABLET 1 EACH PO (08:09)
[2018-07-19] MEDS: MULTIVITAMIN 1 TABLET 1 TAB PO (08:09)
[2018-07-19] MEDS: HEPARIN 5,000 UNIT/ML VIAL 5000 UNIT SUBCUT (08:10)
[2018-07-19] MEDS: SODIUM CHLORIDE 0.9% FLUSH 10 ML IV (08:10)
--- NOTE | 2018-07-19 09:30 | PC.NURSE ---
Addendum entered by Sully Curtis R.N. 07/19/18 14:44: Transferred to [facility] via wheelchair at 1430 with Trilogy device due to arrive there in the next couple hours. RA on d/c with oxygen sats 92-93%. Pt does have oxygen available at [facility] if needed. All belongings with pt including clothing and wheelchair. Original Note: Day Shift Note Pt on venti-mask 50% upon assessment with sats upper 90s. Switched to 2L NC while awake and eating breakfast with oxygen sats 92-95%. 2 person max assist to transfer with FWW. RT placed on biPAP at about 0845 for patient nap. Tolerating well with oxygen sats 92-94%. FiO2 is at 30%. Call light within reach.
[2018-07-19 13:01] LABS: PCO2 ABG 68.8 mmHg (35-45); PO2 ABG 95 mmHg (80-100); pH ABG 7.37 (7.35-7.45)
[2018-07-19 13:02] LABS: HCO3 ABG 40 mmol/L (22-26); Oxygen Saturation ABG 97 % (95-100); TCO2 ABG 42 mmol/L (21-31)
--- NOTE | 2018-07-19 14:10 | P.DS_ITS ---
History of Present Illness Chief complaint: SOB Narrative: Shirley Bhakta is a 63-year-old female was brought over by wheelchair from her assisted living facility for hypoxemia with oxygen saturations in the low 80s. The patient is unsure why she is here but reports that she believes her oxygen has been low and she has been confused and lost consciousness several times. She endorses that she does not always wear her CPAP at night. She does not describe any shortness of breath. She denies headache, chest pain, shortness of breath, abdominal pain, nausea, vomiting, fever, chills, dysuria, diarrhea constipation. She does endorse mild chronic cough and rhinitis for the last 2 weeks that is slowly improving. She also endorses hot and cold chills all the time. She has chronic bilateral lower extremity weakness which she contributes to her scoliosis and prior back infusion. Discharge Providers Date of admission: 07/18/18 13:51 Primary care physician: ISAK Woodson Consults: 07/18/18 14:07 Consult to Respiratory Therapy Evaluate & Treat Comment: BIPAP, [facility] for Trilogy Physician Instructions: Evaluate and treat 07/18/18 18:31 Consult to Dietitian, Adult Routine Comment: Reason For Exam: Assessed at high risk Discharge provider: Meera Mauro DO Discharge Date: 07/19/18 Summary Discharge Diagnosis: 1. Acute on chronic hypoxemic and hypercarbic respiratory failure, present on admission. Active. 2. Cardiomyopathy, unclear type, chronic present on admission. Stable. 3. Anxiety, chronic, present on admission. Stable. 4. Insomnia, chronic, present on admission. Stable. 5. Back pain and muscle spasm, chronic, present on admission. Stable. Hospital Course: Shirley Mason is a 63-year-old female with a past medical history significant for chronic hypoxemic and hypercarbic respiratory failure secondary to GREGORIO noncompliant with CPAP, anxiety, scoliosis with disability, and cardiomyopathy who presented from assisted living facility due to hypoxemia with oxygen saturations in the low 80s. 1. Acute on chronic hypoxemic and hypercarbic respiratory failure, present on admission. Active. -Patient presented from assisted living facility for hypoxemia with oxygen saturations in the low 80s. SpO2 as low as 84% on arrival. -Patient has longstanding history of hypoxemia and hypercarbia likely secondary to OHS, GREGORIO noncompliant with CPAP, possible restrictive lung disease from scoliosis. The patient has not been seen by pulmonology ever and has an appointment to establish care with pulmonology on Saturday 07/22. -ABG demonstrated pH 7.36, pCO2 66.6, PO2 99, HC03 37 on FiO2 of 30% with SpO2 97% independent sales representative of compensated respiratory acidosis with metabolic alkalosis which improved with compliance on BiPAP. -No infectious signs or symptoms. Afebrile. No leukocytosis. -Ordered furosemide 20 mg p.o. x1 and will assess for improvement in breathing. -Patient assessed for trilogy as she requires nocturnal and daytime ventilation and home BiPAP is insufficient due to severity of obesity hypoventilation syndrome and chronic hypercarbic and hypoxemic respiratory failure for which she was approved. Trilogy to be set up at her assisted living facility. 2. Cardiomyopathy, unclear type, chronic present on admission. Stable. -Continued home meds including aspirin 81 mg daily, atorvastatin 40 mg daily at bedtime, and metoprolol succinate 25 mg daily. 3. Anxiety, chronic, present on admission. Stable. -Continued paroxetine 20 mg daily and buspirone 15 mg 3 times daily. -Patient does exhibit tardive dyskinesia unclear etiology but likely due to medications prescribed in the past. 4. Insomnia, chronic, present on admission. Stable. -Continued home medications including trazodone 100 mg at bedtime. 5. Back pain and muscle spasm, chronic, present on admission. Stable. -Continued to day tizanidine and Lyrica. Status at Discharge Functional status at discharge: independent ambulation Overall status at discharge: patient is back to baseline Exam Vital Signs (past 8 hours): - 07/19/18 06:11 07/19/18 07:42 07/19/18 08:20 Temperature 98.6 F Pulse Rate 66 63 Respiratory Rate 12 23 Blood Pressure 91/52 L 84/60 L Pulse Oximetry 92 96 94 07/19/18 08:44 07/19/18 10:47 07/19/18 11:09 Temperature Pulse Rate 59 L Respiratory Rate 34 H Blood Pressure 84/60 L 102/64 102/64 Pulse Oximetry 92 07/19/18 12:00 Temperature 98.6 F Pulse Rate 65 Respiratory Rate 24 Blood Pressure 93/54 L Pulse Oximetry 96 Fraction of Inspired Oxygen 0.30 Oxygen Delivery Method Nasal Cannula Oxygen Flow Rate 3 Narrative Exam Narrative: General: Middle-aged female sitting in bed and in no acute distress, well- developed, well-nourished, appropriately interactive. HEENT: Normocephalic, atraumatic. External ears without defect. Pupils equal, round, and reactive to light. Anicteric sclerae, moist conjunctivae, and no lid lag. Oropharynx free of erythema and cobble stoning with moist mucosa. Neck: Supple with full range of motion. No jugular venous distension. No bruits. No lymphadenopathy or thyromegaly. Cardiovascular: Regular rate and rhythm without murmurs, rubs, or gallops appreciated Pulmonary: Diminished lung sounds throughout but clear to auscultation bilaterally without crackles, wheezes, or rhonchi. Normal respiratory effort with no use of accessory muscles. Abdomen: Soft, bowel sounds present, nontender, nondistended. No hepatosplenomegaly or masses appreciated. Extremities: No clubbing, cyanosis, or edema. Skin: Normal temperature, turgor, and texture; no rash, ulcers, or subcutaneous nodules appreciated. Neurological: Cranial nerves grossly intact. Psychiatric: Normal mood and affect. Alert and oriented to person, place, and time. Mild cognitive impairment that is likely chronic. Objective Labs Result Diagrams: 07/18/18 11:28 07/18/18 11:28 Labs: Laboratory Results - last 24 hr 07/18/18 07/18/18 07/18/18 15:00 15:00 16:05 ABG pH 7.36 ABG pCO2 66.6 H* ABG pO2 99 ABG HCO3 37 H ABG Total CO2 39 H ABG O2 Saturation 97 ABG Base Excess 12.0 H FiO2 0.30 Urine Color Yellow Urine Appearance Clear Urine pH 7.0 Ur Specific [place] 1.020 Urine Protein Negative Urine Glucose (UA) Negative Urine Ketones Negative Urine Occult Blood Negative Urine Nitrate Negative Urine Bilirubin Negative Urine Urobilinogen 0.2 Ur Leukocyte Esterase Negative Urine RBC None seen Urine WBC 5-10/hpf H Ur Squamous Epith Cells 5-10 /hpf H Urine Bacteria None seen Ur Culture Indicated? Cult not indicated Nasal Screen MRSA (PCR) Negative for mrsa 07/19/18 12:44 ABG pH 7.37 ABG pCO2 68.8 H* ABG pO2 95 ABG HCO3 40 H ABG Total CO2 42 H ABG O2 Saturation 97 ABG Base Excess 15.0 H FiO2 0.30 Urine Color Urine Appearance Urine pH Ur Specific [place] Urine Protein Urine Glucose (UA) Urine Ketones Urine Occult Blood Urine Nitrate Urine Bilirubin Urine Urobilinogen Ur Leukocyte Esterase Urine RBC Urine WBC Ur Squamous Epith Cells Urine Bacteria Ur Culture Indicated? Nasal Screen MRSA (PCR) Discharge Plan Discharge Plan Patient Disposition: Assisted Living Other facility: [facility] living facility Under care of provider: Dr. Rai Transportation: Facility vehicle Discharge comment: The patient is being discharged with trilogy delivered by [facility]. If she has low oxygen saturations or becomes increasingly somnolent please make sure she is wearing her mask. She is noncompliant at times and does not wear her mask and use her machine. The receiving facility has agreed to accept transfer and provide medical treatment.: Yes Discharge Med Rec/Prescriptions Prescriptions: Continue lidocaine [Aspercreme (lidocaine)] 4 % Adhesive Patch,Medicated 1 patch TOPICAL DAILY RF: 0 lorazepam 0.5 mg Tablet 0.5 mg PO Q6H PRN (Reason: Anxiety) RF: 0 paroxetine HCl 20 mg Tablet 20 mg PO DAILY RF: 0 menthol [Biofreeze (menthol)] 4 % Gel 1 applic Topical BID PRN (Reason: left knee pain) RF: 0 multivitamin Tablet 1 tab PO DAILY RF: 0 atorvastatin 40 mg Tablet 40 mg PO QPM RF: 0 sennosides [senna] 8.6 mg Tablet 8.6 mg PO BEDTIME RF: 0 acetaminophen 325 mg Tablet 650 mg PO Q6H PRN (Reason: pain or fever) RF: 0 tizanidine 4 mg Tablet 4 mg PO Q6H PRN (Reason: Muscle Spasm) RF: 0 melatonin 3 mg Tablet 3 mg PO BEDTIME PRN (Reason: Sleep) RF: 0 acetaminophen-codeine 300-30 mg Tablet 1 tab PO TID PRN (Reason: pain) RF: 0 aspirin 81 mg Tablet,Delayed Release (Dr/Ec) 1 tab PO DAILY RF: 0 magnesium hydroxide [Milk of Magnesia] 400 mg/5 mL Suspension 30 ml PO DAILY PRN (Reason: Constipation) RF: 0 trazodone 100 mg Tablet 100 mg PO BEDTIME PRN (Reason: Insomnia) RF: 0 nystatin 100,000 unit/gram Cream 1 applic TOPICAL BID RF: 0 metoprolol succinate 25 mg Tablet Extended Release 24 Hr 25 mg PO DAILY RF: 0 buspirone 15 mg Tablet 15 mg PO TID RF: 0 Saccharomyces boulardii [Florastor] 250 mg Capsule 250 mg PO BID RF: 0 pregabalin [Lyrica] 75 mg Capsule 75 mg PO BID RF: 0 Follow up/Referrals: Estefani Mcnamara ARNP [Primary Care Provider] - Discharge Orders: Discharge (Order); Ordered 07/19/18 Ordered By: Meera Mauro Discharge Health Status Brief summary of current health status: The patient is in her normal state of health. She improved drastically with BiPAP in place. She is being discharged with trilogy to be set up today. Patient must be compliant with BiPAP as she does not always wear her mask and is the cause for her to become hypoxemic (low oxygen) and hypercarbic (high carbon dioxide) prompting her admission. Please keep her establish care with pulmonology on Saturday 07/22. Multidrug resistant organism: No MDRO Provider Discharge Instructions Diet: Low-fat, Low-sodium and Low-cholesterol Activity: Activity as tolerated Oxygen: 3L Skin/Wound/Dressing Care Report to your healthcare provider any signs of infection, such as:: chills, fever and night sweats Visit Report/Discharge Packet Instructions: How to Use a Bilevel Positive Airway Pressure (BiPAP) Device Discharge Data Primary Care Provider: Estefani Mcnamara Attending Provider: Meera Mauro Admit Date/Time: 07/18/18 13:51 Quality VTE Deep Vein Thrombosis/Pulmonary Embolism Present on Admission: No
--- NOTE | 2018-07-19 14:22 | CM.DPC ---
DCP/continued: Reviewed chart. Obtained DPOA information. Assigned DPOA is Robina Hernandez ph# [phone]. Patient did provide IN SERVICE EDUCATOR with permission to speak with sister. Placed call to MARI updated her on plan. Sister aware and agreeable to plan. Sister made aware that patient was returning to [facility] today. [facility] aware and provided with DPOA name/number. CARMEN Maldonado Discharge Planning/Care Management CM Discharge Assessment Start: 07/19/18 13:45 Freq: Status: Active Protocol: Document 07/19/18 13:45 KJS (Rec: 07/19/18 13:55 [id number]) Discharge Planning Assessment Assigned Floriculturist CARMEN Maldonado Advance Directives? Yes: Polst Advance Directives on File Yes History Provided By Patient Medical Record Prior Living Arrangements Assisted Living Household Members none Type of transporation used prior to Relies on Others admit Facility Name Admitted From: [facility] Willing to Return to Facility? Yes Caregiver for Another No Community Services used prior to Oxygen Therapy admission: Comment New dx for trilogy at [facility] through [facility]. DME Already Rented / Owned Wheelchair Barriers to Discharge No Discharge Plan Assisted Living Facility Community Services Oxygen Therapy Transportation Arrangement [facility] to provide transport. Referrals Initiated None needed Whiteboard Updated in Patient Room with Yes name and ext. # of Floriculturist Comment Reviewed chart. Patient is a 63yr old female admitted to [facility] with SOB. Primary payor is 1)Medicare 2)[employer]. PCP is Estefani Mcnamara . Per MD, in AM rounds patient okay to return to [facility] today. IN SERVICE EDUCATOR placed call to Briana this AM at ph# [phone]. She reports that they can accept patient back and that no assessment is needed because it has been less than 24hrs. Dr. Mauro aware and will discharge patient today. Met with patient explained CM/ SW role. Patient agreeable to return to [facility]. Per MD, patient received trilogy for home use to improve her SOB at the residence. Maria E at [facility] aware that patient will be coming back to facility with trilogy. Patient scheduled to be picked up at approximately 2:30pm. RN updated. No additional needs identified. Will fax clinical notes to [facility] prior to patient's departure. P: Return to [facility] today. CARMEN Maldonado Review Status In Process Please Provide Date Initial DC 07/19/18 Assessment Was Performed Next Review Type Continued Stay Review
== END 2018-07-19 14:30 | DRG 189 ==
LOC: ED 13:18 → ICU 13:52
PROVIDERS: Admitting Provider Internal Medicine; Emergency Provider Emergency Medicine; PCP Registered Nurse; Visit Provider Internal Medicine
DX: J96.22 Acute and chronic respiratory failure with hypercapnia (principal); I42.9 Cardiomyopathy, unspecified; J96.21 Acute and chronic respiratory failure with hypoxia; G47.33 Obstructive sleep apnea (adult) (pediatric); Z99.81 Dependence on supplemental oxygen; F41.9 Anxiety disorder, unspecified; G47.00 Insomnia, unspecified; M54.9 Dorsalgia, unspecified; M62.830 Muscle spasm of back
CPT/HCPCS: 36415; 36591; 36600; 71045; 80048; 80053; 81001; 81003; 82805; 82962; 83690; 83880; 84145; 84484; 85025; 85610; 85730; 87797; 93005; 94660; 96360; 96361; 99283; 99285; J1644

== ENCOUNTER → 2018-07-27 07:22 | Outpatient (REF) | payer MEDICARE, OTHER, SELFPAY ==
[2018-07-18 16:18] VITALS: BMI 29.8
[2018-07-19 11:09] VITALS: PULSE 67; RESP 21; O2SAT 93
[2018-07-27 07:41] LABS: Add Manual Diff / Slide Review NO; Basophils Absolute Auto 0 /uL (0-100); Basophils Percent Auto 0.4 % (0-2); Eosinophils Absolute Auto 200 /uL (0-450); Eosinophils Percent Auto 2.4 % (2-4); Hematocrit 38.9 % (36-46); Hemoglobin 12.7 g/dL (12.0-16.0); Lymphocytes Absolute Auto 2200 /uL (1100-4500); Lymphocytes Percent Auto 25.4 % (25-40); Mean Corpuscular HGB Conc 32.7 % (30-36); Mean Corpuscular Hemoglobin 30.8 PG (26-34); Mean Corpuscular Volume 94.4 fL (80-100); Monocytes Absolute Auto 700 /uL (0-900); Monocytes Percent Auto 7.8 % (3-14); Neutrophils Absolute Auto 5500 /uL (1500-7000); Platelet Count 264 X10^3/uL (150-400); Red Blood Cell Count 4.12 X10^6/uL (4.0-5.2); White Blood Cell Count 8.6 X10^3/uL (4.5-11.0)
[2018-07-27 07:50] LABS: Blood Urea Nitrogen 15 mg/dL (7-17); Calcium 9.1 mg/dL (8.4-10.2); Carbon Dioxide 35 mmol/L (22-32); Chloride 97 mmol/L (98-107); Estimated Glomerular Filt Rate > 60.0 mL/min (>60); Glucose 106 mg/dL (80-110); HEMOLYSIS < 15 (0-50); Potassium 4.3 mmol/L (3.4-5.1); Sodium 138 mmol/L (137-145)
[2018-07-27 16:05] LABS: Bacteria Urine None Seen; RBC Urine None Seen (0-5/HPF); WBC Urine None Seen (0-5/HPF)
[2018-07-27 16:09] LABS: Appearance Urine UA CLEAR; Bilirubin Urine UA NEGATIVE (NEGATIVE); Color Urine UA YELLOW; Glucose Urine UA NEGATIVE (Negative); Ketones Urine UA NEGATIVE (NEGATIVE); Leukocyte Esterase Urine UA TRACE (NEGATIVE); Nitrite Urine UA NEGATIVE (Negative); Occult Blood Urine UA NEGATIVE (Negative); Protein Urine UA NEGATIVE (Negative); Urobilinogen Urine UA 0.2 E.U./dL (0.2)
[2018-07-27 16:15] LABS: Culture Indicated Urine Cult Not Indicated; Urine Comments Microscopic Normal
== END ==
LOC: LAB 07:22
PROVIDERS: PCP Registered Nurse; Visit Provider Registered Nurse
DX: Z79.899 Other long term (current) drug therapy (principal); R35.0 Frequency of micturition
CPT/HCPCS: 36415; 80048; 81001; 85025; 87086

== ENCOUNTER → 2018-08-24 08:40 | Outpatient (REF) | payer MEDICARE, OTHER, SELFPAY ==
[2018-07-18 16:18] VITALS: BMI 29.8
[2018-07-19 11:09] VITALS: PULSE 67; RESP 21; O2SAT 93
[2018-08-24 09:10] LABS: Add Manual Diff / Slide Review NO; Basophils Absolute Auto 0 /uL (0-100); Basophils Percent Auto 0.4 % (0-2); Eosinophils Absolute Auto 200 /uL (0-450); Eosinophils Percent Auto 2.6 % (2-4); Hematocrit 39.2 % (36-46); Hemoglobin 12.9 g/dL (12.0-16.0); Lymphocytes Absolute Auto 1800 /uL (1100-4500); Lymphocytes Percent Auto 23.5 % (25-40); Mean Corpuscular HGB Conc 32.8 % (30-36); Mean Corpuscular Hemoglobin 30.8 PG (26-34); Mean Corpuscular Volume 93.7 fL (80-100); Monocytes Absolute Auto 600 /uL (0-900); Monocytes Percent Auto 7.8 % (3-14); Neutrophils Absolute Auto 5100 /uL (1500-7000); Neutrophils Percent Auto 65.7 % (50-75); Platelet Count 218 X10^3/uL (150-400); Red Blood Cell Count 4.19 X10^6/uL (4.0-5.2); Red Cell Distribution Width 13.7 % (11.6-14.8); White Blood Cell Count 7.8 X10^3/uL (4.5-11.0)
[2018-08-24 09:56] LABS: Blood Urea Nitrogen 14 mg/dL (7-17); Calcium 9.1 mg/dL (8.4-10.2); Carbon Dioxide 36 mmol/L (22-32); Chloride 96 mmol/L (98-107); Estimated Glomerular Filt Rate > 60.0 mL/min (>60); Glucose 96 mg/dL (80-110); HEMOLYSIS < 15 (0-50); Potassium 4.2 mmol/L (3.4-5.1); Sodium 140 mmol/L (137-145)
== END ==
LOC: LAB 08:40
PROVIDERS: PCP Registered Nurse; Visit Provider Nurse Practitioner Family
DX: I10 Essential (primary) hypertension (principal); F41.9 Anxiety disorder, unspecified; Z79.899 Other long term (current) drug therapy
CPT/HCPCS: 36415; 80048; 85025

== ENCOUNTER → 2018-10-07 10:43 | Outpatient (CLI) | payer MEDICARE, OTHER, SELFPAY ==
[2018-07-18 16:18] VITALS: BMI 29.8
[2018-07-19 11:09] VITALS: PULSE 67; RESP 21; O2SAT 93
[2018-10-07 11:51] LABS: HCO3 ABG 36 mmol/L (22-26); PCO2 ABG 63.1 mmHg (35-45); PO2 ABG 68 mmHg (80-100); TCO2 ABG 38 mmol/L (21-31); pH ABG 7.37 (7.35-7.45)
[2018-10-07 11:52] LABS: Oxygen Saturation ABG 92 % (95-100)
[2018-10-07 12:08] LABS: Fractionated Inspired Oxygen 21
--- NOTE | 2018-10-12 09:34 | PM.PFT.1 ---
Pulmonary Function Test Referral & Results Date Patient Seen: 10/07/18 Requesting provider: Najma Rai Results: The spirometry demonstrates an FVC of 2.19 L which is 59% of predicted. The FEV1 was measured at 1.86 L which is 65% of predicted. The FEV1/FVC ratio was 85 which is 110% of predicted. Following the administration of bronchodilator there was a 14% improvement in FEV1 and a 25% improvement in FEF 25-75%. Lung volumes show an SVC of 2.25 L which is 66% of predicted. The diffusing capacity was measured at 19.51 which is 65% of predicted. No hemoglobin value was provided, so no correction for potential anemia could be made, if appropriate. The maximum voluntary ventilation was reduced Interpretation: This study demonstrates moderate obstructive lung disease based on reduction in FEV1. There is evidence of benefit following bronchodilator administration given the 14% improvement in FEV1 and the 25% improvement in FEF 25-75% There is also mild restrictive lung disease present based on reduction in lung volumes There is also an element of disease at the capillary alveolar level based on moderate reduction in diffusing capacity Clinical correlation suggested
--- NOTE | 2018-10-25 15:32 | PM.PFT.1 ---
Pulmonary Function Test Referral & Results Date Patient Seen: 10/07/18 Requesting provider: Najma Rai Results: The spirometry demonstrates an FVC of 2.19 L which is 59% of predicted. The FEV1 was measured at 1.86 L which is 65% of predicted. The FEV1/FVC ratio was 85 which is 110% of predicted. Following the administration of bronchodilator there was a 14% improvement in FEV1 and a 25% improvement in FEF 25-75%. Lung volumes show an SVC of 2.25 L which is 66% of predicted. The diffusing capacity was measured at 19.51 which is 65% of predicted. No hemoglobin value was provided, so no correction for potential anemia could be made, if appropriate. The maximum voluntary ventilation was reduced Interpretation: This study demonstrates moderate obstructive lung disease based on reduction in FEV1 although there is some evidence of benefit following bronchodilator based on improvement as above There is also mild to moderate restrictive lung disease based on reduction SVC There is also [id number] reduction in diffusing capacity. Altogether this is consistent with a diagnosis of COPD
== END ==
PROVIDERS: PCP Registered Nurse; Visit Provider Internal Medicine
DX: J96.21 Acute and chronic respiratory failure with hypoxia (principal); J96.22 Acute and chronic respiratory failure with hypercapnia
CPT/HCPCS: 36600; 82805; 94060; 94726; 94729

== ENCOUNTER 2018-10-31 16:40 | Inpatient (IN) | payer MEDICARE, OTHER, SELFPAY ==
[2018-07-18 16:18] VITALS: BMI 29.8
[2018-07-19 11:09] VITALS: PULSE 67; RESP 21; O2SAT 93
[2018-10-31] VITALS (8 sets, daily range): BP systolic 102–130; BP diastolic 46–106; PULSE 72–90; RESP 12–22; TEMP 37.2; O2SAT 89–97
[2018-10-31] MEDS: SODIUM CHLORIDE 0.9% 1,000 ML 1000 ML IV (16:53)
--- NOTE | 2018-10-31 17:18 | PC.NURSE ---
RT reviewed ABG: placed pt on 2 L NC oxygen to maintain [id number]%
[2018-10-31 17:19] LABS: Add Manual Diff / Slide Review NO; Basophils Absolute Auto 0 /uL (0-100); Basophils Percent Auto 0.5 % (0-2); Eosinophils Absolute Auto 100 /uL (0-450); Eosinophils Percent Auto 1.7 % (2-4); Lymphocytes Absolute Auto 1800 /uL (1100-4500); Lymphocytes Percent Auto 21.7 % (25-40); Mean Corpuscular HGB Conc 32.5 % (30-36); Mean Corpuscular Hemoglobin 30.7 PG (26-34); Mean Corpuscular Volume 94.6 fL (80-100); Monocytes Absolute Auto 600 /uL (0-900); Monocytes Percent Auto 7.1 % (3-14); Neutrophils Absolute Auto 5700 /uL (1500-7000); Platelet Count 276 X10^3/uL (150-400); Red Blood Cell Count 4.23 X10^6/uL (4.0-5.2); Red Cell Distribution Width 14.6 % (11.6-14.8); White Blood Cell Count 8.3 X10^3/uL (4.5-11.0)
[2018-10-31 17:27] LABS: HCO3 ABG 38 mmol/L (22-26); PO2 ABG 50 mmHg (80-100); TCO2 ABG 39 mmol/L (21-31); pH ABG 7.39 (7.35-7.45)
[2018-10-31 17:28] LABS: Fractionated Inspired Oxygen 21; Oxygen Saturation ABG 83 % (95-100); PCO2 ABG 62.2 mmHg (35-45)
[2018-10-31 17:32] LABS: Alanine Aminotransferase 7 IU/L (9-52); Albumin 3.9 g/dL (3.5-5.0); Albumin Globulin Ratio 1.3 (1.0-2.8); Alkaline Phosphatase 106 U/L (38-126); Aspartate Aminotransferase 22 IU/L (14-36); Blood Urea Nitrogen 15 mg/dL (7-17); Chloride 94 mmol/L (98-107); Estimated Glomerular Filt Rate > 60.0 mL/min (>60); Globulin 3.1 g/dL (1.7-4.1); Glucose 152 mg/dL (80-110); HEMOLYSIS < 15 (0-50); Potassium 4.3 mmol/L (3.4-5.1); Sodium 139 mmol/L (137-145)
[2018-10-31 17:35] LABS: Ketones (Beta-Hydroxybutyrate) 0.13 mmol/L (<0.27)
[2018-10-31 17:42] LABS: Carbon Dioxide 41 mmol/L (22-32)
[2018-10-31 17:43] LABS: Lactate (Lactic Acid) 1.3 mmol/L (0.7-2.1)
[2018-10-31 18:01] LABS: Procalcitonin < 0.05 ng/mL (<0.5)
--- NOTE | 2018-10-31 19:00 | ED.GENADULT ---
HPI - General Adult General Chief complaint: Diabetic Problem Stated complaint: Mental status change, high glucose Time Seen by Provider: 10/31/18 18:14 Source: patient, EMS and RN notes reviewed Mode of arrival: EMS Limitations: altered mental status History of Present Illness HPI narrative: 63-year-old female nonsmoker with history of cardiomyopathy, chronic hypercarbia presents from assisted living at a local facility. Reports are that she has increasing oxygen requirements and has been more short of breath and weak than normal. Attempts to gain in depth nursing notes have been unsuccessful. The patient is a poor historian and this is reportedly, relatively close to her baseline. She was last admitted under relatively similar circumstances in July and had been evaluated for more ongoing use a CPAP and even Trilogy. It sounds like she is noncompliant with her CPAP at home. She admits to cough of yellowish sputum but denies any fever or shaking chills. She is unaware of her location or the date but does know her name. Onset (ago): day(s) Related Data Home Medications Medication Instructions Recorded Confirmed Florastor 250 mg PO BID 03/14/18 10/31/18 Lyrica 75 mg PO BID 03/14/18 10/31/18 acetaminophen 650 mg PO Q6H PRN 03/14/18 10/31/18 acetaminophen-codeine 1 tab PO TID PRN 03/14/18 10/31/18 aspirin 1 tab PO DAILY 03/14/18 10/31/18 atorvastatin 40 mg PO QPM 03/14/18 10/31/18 magnesium hydroxide [Milk of 30 ml PO DAILY PRN 03/14/18 10/31/18 Magnesia] multivitamin 1 tab PO DAILY 03/14/18 10/31/18 nystatin 1 applic TOPICAL BID 03/14/18 10/31/18 sennosides [senna] 8.6 mg PO BEDTIME 03/14/18 10/31/18 lorazepam 0.5 mg PO Q6H PRN 07/18/18 10/31/18 paroxetine HCl 20 mg PO DAILY 07/18/18 10/31/18 Saccharomyces boulardii [Florastor] 250 mg PO BID 10/31/18 10/31/18 baclofen 10 mg PO TID 10/31/18 10/31/18 buspirone 10 mg PO TID 10/31/18 10/31/18 hydrocortisone 1 applic TOPICAL BID 10/31/18 10/31/18 lidocaine [Aspercreme (lidocaine)] 1 patch TOPICAL DAILY 10/31/18 10/31/18 menthol [Biofreeze (menthol)] 1 applic TOPICAL BID 10/31/18 10/31/18 mirtazapine 15 mg PO BEDTIME 10/31/18 10/31/18 trazodone 50 mg PO BEDTIME 10/31/18 10/31/18 Allergies Allergy/AdvReac Type Severity Reaction Status Date / Time bee venom protein (honey bee) Allergy unknown Verified 07/18/18 18:50 sulfabenzamide Allergy Verified 03/14/18 10:50 Review of Systems Constitutional Denies chills, Denies fever(s), Denies lethargy and Reports weakness Eyes Denies change in vision, Denies eye discharge, Denies irritation and Denies loss of vision ENT Ears, Nose, Mouth, and Throat: Denies change in voice, Denies neck pain and Denies sore throat Cardiovascular Denies chest pain, Denies irregular heart rhythm, Denies lightheadedness, Denies palpitations, Reports dyspnea, Denies dyspnea on exertion and Denies orthopnea Respiratory Reports cough, Reports dyspnea, Denies dyspnea on exertion and Denies wheezing Gastrointestinal Gastrointestinal: Denies abdominal pain, Denies change in bowel habits, Denies diarrhea, Denies nausea and Denies vomiting Genitourinary Denies hematuria, Denies flank pain, Denies urinary incontinence and Denies urinary urgency Musculoskeletal Denies neck pain Integumentary/Breasts Denies pruritus, Denies erythema, Denies rash and Denies wounds Neurologic Denies confusion, Denies loss of vision and Reports weakness Psychiatric Denies anxiety, Denies confusion, Denies depression, Denies homicidal ideation and Denies suicidal ideation Endocrine Denies palpitations Hematologic/Lymphatic Denies easy bruising Allergic/Immunologic Denies wheezing [facility] Medical History Anxiety (Acute) Cardiomyopathy (Acute) Chronic respiratory failure with hypoxia and hypercapnia (Acute) Diabetes (Acute) Fusion of lumbar spine (Acute) Hypoventilation (Acute) Insomnia (Acute) Lacunar infarction (Acute) Posterior reversible encephalopathy syndrome (Acute) Tardive dyskinesia (Acute) Arthritis of knee (Chronic) Back pain (Chronic) Scoliosis (Chronic) Family History (Updated 07/18/18 @ 18:00 by Meera Mauro DO) Mother Cancer Father No problems noted. Brother Heart attack Social History household members: none housing: assisted living facility Smoking Status: Never smoker alcohol intake: current Family History Mother Cancer Father No problems noted. Brother Heart attack Social History household members: none housing: assisted living facility Smoking Status: Never smoker alcohol intake: current Exam Narrative Exam Narrative: GENERAL: 63-year-old female appears older than stated age, chronically ill and in respiratory distress, demonstrating tachypnea with some work of breathing on arrival, this improves with nasal cannula and more so with high-flow nasal cannula. AOx1 (reported at baseline) HEAD: Atraumatic. Normocephalic. No temporal or scalp tenderness. EYES: Pupils equal round and reactive. Extraocular motions intact. No scleral icterus. No injection or drainage. ENT: Nose without bleeding, purulent drainage or septal hematoma. Throat without erythema, tonsillar hypertrophy or exudate. Uvula midline. Airway patent. NECK: Trachea midline. No JVD or lymphadenopathy. Supple, nontender, no meningeal signs. CARDIOVASCULAR: Regular rate and rhythm without murmurs, gallops, or rubs. RESPIRATORY: Decreased breath sounds B/L with some faint basilar crackles. GASTROINTESTINAL: Abdomen soft, non-tender, nondistended. No hepato-splenomegaly, or palpable masses. No guarding. EXTREMITIES: No clubbing, cyanosis, or edema. No joint tenderness, effusion, or edema noted. BACK: Nontender without deformity or crepitance. No flank tenderness. NEURO: AOx1. SKIN: No rash or erythema. Initial Vital Signs Initial Vital Signs: Vital Signs Temperature 99 F 10/31/18 16:58 Pulse Rate 90 10/31/18 16:58 Respiratory Rate 22 10/31/18 16:58 Blood Pressure 102/50 L 10/31/18 16:58 Pulse Oximetry 89 L 10/31/18 16:58 Course Orders Ordered: ED Orders 10/31/18 17:00 Complete Blood Count AUTO DIFF Stat Comprehensive Metabolic Panel Stat Ketones (Beta-Hydroxybutyrate) Stat Lactate (Lactic Acid) Stat Procalcitonin Stat 10/31/18 17:07 Arterial Blood Gas Stat 10/31/18 17:14 EKG-12 Lead Stat 10/31/18 18:24 Blood Culture Stat 10/31/18 20:32 XR chest 1V Stat B Type Natriuretic Peptide Stat Discontinued Medications Doxycycline Hyclate (Vibramycin) 100 mg PO NOW ONE Stop: 10/31/18 21:44 Last Admin: 10/31/18 21:56 Dose: 100 mg Sodium Chloride (Normal Saline 0.9%) 1,000 mls @ 1,000 mls/hr IV BOLUS ONE Stop: 10/31/18 17:48 Last Infusion: 10/31/18 17:19 Dose: 0 mls/hr Admin: 10/31/18 16:53 Dose: 1,000 mls/hr Consultations Consultation #1: hospitalist is happy to accept Vital Signs - 8 hr 10/31/18 16:58 10/31/18 17:15 10/31/18 18:02 Temperature 99 F Pulse Rate 90 88 85 Respiratory Rate 22 22 20 Blood Pressure [Left Arm] 102/50 L 104/50 L 129/106 H Pulse Oximetry 89 L 93 94 10/31/18 19:19 10/31/18 19:45 10/31/18 20:15 Temperature Pulse Rate 84 77 81 Respiratory Rate 12 15 14 Blood Pressure [Left Arm] 106/63 108/57 L 113/77 Pulse Oximetry 94 91 95 Medical Decision Making Lab Data Result diagrams: 10/31/18 17:00 10/31/18 17:00 Lab Results 10/31/18 10/31/18 10/31/18 Range/Units 17:00 17:00 17:00 WBC 8.3 (4.5-11.0) X10^3/uL RBC 4.23 (4.0-5.2) X10^6/uL Hgb 13.0 (12.0-16.0) g/dL Hct 40.0 (36-46) % MCV 94.6 (80-100) fL MCH 30.7 (26-34) PG MCHC 32.5 (30-36) % RDW 14.6 (11.6-14.8) % Plt Count 276 (150-400) X10^3/uL Neut % (Auto) 69.0 (50-75) % Lymph % (Auto) 21.7 L (25-40) % [place] % (Auto) 7.1 (3-14) % Eos % (Auto) 1.7 L (2-4) % Baso % (Auto) 0.5 (0-2) % Neut # (Auto) 5700 (8306-0444) /uL Lymph # (Auto) 1800 (8989-0547) /uL [place] # (Auto) 600 (0-900) /uL Eos # (Auto) 100 (0-450) /uL Baso # (Auto) 0 (0-100) /uL ABG pH (7.35-7.45) ABG pCO2 (35-45) mmHg ABG pO2 (80-100) mmHg ABG HCO3 (22-26) mmol/L ABG Total CO2 (21-31) mmol/L ABG O2 Saturation (95-100) % ABG Base Excess (-2-2) mmol/L FiO2 Sodium 139 (137-145) mmol/L Potassium 4.3 (3.4-5.1) mmol/L Chloride 94 L (98-107) mmol/L Carbon Dioxide 41 H* (22-32) mmol/L BUN 15 (7-17) mg/dL Creatinine 0.60 (0.52-1.04) mg/dL Estimated GFR > 60.0 (>60) mL/min BUN/Creatinine Ratio 25.0 H (6-22) Glucose 152 H (80-110) mg/dL Lactate (0.7-2.1) mmol/L Calcium 9.0 (8.4-10.2) mg/dL Total Bilirubin 1.0 (0.2-1.3) mg/dL AST 22 (14-36) IU/L ALT 7 L (9-52) IU/L Alkaline Phosphatase 106 (38-126) U/L B-Natriuretic Peptide (<100) Total Protein 7.0 (6.3-8.2) g/dL Albumin 3.9 (3.5-5.0) g/dL Globulin 3.1 (1.7-4.1) g/dL Albumin/Globulin Ratio 1.3 (1.0-2.8) Procalcitonin < 0.05 (<0.5) ng/mL Ketones 0.13 (<0.27) mmol/L 10/31/18 10/31/18 10/31/18 Range/Units 17:00 17:07 20:32 WBC (4.5-11.0) X10^3/uL RBC (4.0-5.2) X10^6/uL Hgb (12.0-16.0) g/dL Hct (36-46) % MCV (80-100) fL MCH (26-34) PG MCHC (30-36) % RDW (11.6-14.8) % Plt Count (150-400) X10^3/uL Neut % (Auto) (50-75) % Lymph % (Auto) (25-40) % [place] % (Auto) (3-14) % Eos % (Auto) (2-4) % Baso % (Auto) (0-2) % Neut # (Auto) (9607-1776) /uL Lymph # (Auto) (3760-0068) /uL [place] # (Auto) (0-900) /uL Eos # (Auto) (0-450) /uL Baso # (Auto) (0-100) /uL ABG pH 7.39 (7.35-7.45) ABG pCO2 62.2 H* (35-45) mmHg ABG pO2 50 L (80-100) mmHg ABG HCO3 38 H (22-26) mmol/L ABG Total CO2 39 H (21-31) mmol/L ABG O2 Saturation 83 L* (95-100) % ABG Base Excess 13.0 H (-2-2) mmol/L FiO2 21 Sodium (137-145) mmol/L Potassium (3.4-5.1) mmol/L Chloride (98-107) mmol/L Carbon Dioxide (22-32) mmol/L BUN (7-17) mg/dL Creatinine (0.52-1.04) mg/dL Estimated GFR (>60) mL/min BUN/Creatinine Ratio (6-22) Glucose (80-110) mg/dL Lactate 1.3 (0.7-2.1) mmol/L Calcium (8.4-10.2) mg/dL Total Bilirubin (0.2-1.3) mg/dL AST (14-36) IU/L ALT (9-52) IU/L Alkaline Phosphatase (38-126) U/L B-Natriuretic Peptide 101 H (<100) Total Protein (6.3-8.2) g/dL Albumin (3.5-5.0) g/dL Globulin (1.7-4.1) g/dL Albumin/Globulin Ratio (1.0-2.8) Procalcitonin (<0.5) ng/mL Ketones (<0.27) mmol/L Point of Care Testing Glucose POC 153 Point of care testing: Point of Care Testing Glucose POC 153 Imaging Data Chest x-ray: Radiologist's impression: [address] [address] XRay Report Signed Patient: Shirley Mason ANURAG#: [id number] : 4Acct:[id number] Age/Sex: 63 / FDate of Service: 10/31/18 Loc: ED Accession Number: [id number] Procedure: XR chest 1V Ordering Provider: Carlyle Rocha D.O. PROCEDURE: XR CHEST 1V INDICATIONS: SOB, hypoxic TECHNIQUE: One view of the chest was acquired. COMPARISON: [facility], , XR CHEST 1V, 07/18/2018, 11:18. FINDINGS: Surgical changes and devices: Right-sided thoracolumbar fusion hardware. Lungs and pleura: Mild diffuse interstitial pulmonary opacity. No pleural effusions or pneumothorax. Mediastinum: Mediastinal contours appear normal. Heart size is normal. Bones and chest wall: No suspicious bony lesions. Overlying soft tissues appear unremarkable. IMPRESSION: Mild diffuse pulmonary edema versus atypical pneumonia. Dictated by: Stef Ramirez M.D. on 10/31/2018 at 21:00 Approved by: Stef Ramirez M.D. on 10/31/2018 at 21:01 [facility] Narrative Medical decision making narrative: Chronically ill patient presents with increased work of breathing and oxygen requirements, PO2 down to 50 on the ABG. She has increased weakness and presents with confusion. She lives in assisted living and reportedly cannot even get herself to the restroom. Patient is requiring high-flow nasal cannula and requires hospitalization for stabilization and further evaluation of her condition Discharge Plan Departure Patient Disposition: Admitted as Observation Clinical Impression: Acute on chronic respiratory failure with hypoxia and hypercapnia Admit Date/Time: 10/31/18 23:04 Admit Provider: Javid Calle
--- NOTE | 2018-10-31 20:32 | DI.RAD.S_ITS ---
PROCEDURE: XR CHEST 1V INDICATIONS: SOB, hypoxic TECHNIQUE: One view of the chest was acquired. COMPARISON: [facility], CR, XR CHEST 1V, 07/18/2018, 11:18. FINDINGS: Surgical changes and devices: Right-sided thoracolumbar fusion hardware. Lungs and pleura: Mild diffuse interstitial pulmonary opacity. No pleural effusions or pneumothorax. Mediastinum: Mediastinal contours appear normal. Heart size is normal. Bones and chest wall: No suspicious bony lesions. Overlying soft tissues appear unremarkable. IMPRESSION: Mild diffuse pulmonary edema versus atypical pneumonia. Dictated by: Stef Ramirez M.D. on 10/31/2018 at 21:00 Approved by: Stef Ramirez M.D. on 10/31/2018 at 21:01
[2018-10-31 20:56] LABS: B Type Natriuretic Peptide 101 (<100)
[2018-10-31] MEDS: DOXYCYCLINE HYCLATE 100 MG TABLET PO (21:56)
--- NOTE | 2018-10-31 23:11 | ED_ITS ---
HPI - General Adult General Chief complaint: Diabetic Problem Stated complaint: Mental status change, high glucose Time Seen by Provider: 10/31/18 18:14 Source: patient, EMS and RN notes reviewed Mode of arrival: EMS Limitations: altered mental status History of Present Illness HPI narrative: 63-year-old female nonsmoker with history of cardiomyopathy, chronic hypercarbia presents from assisted living at a local facility. Reports are that she has increasing oxygen requirements and has been more short of breath and weak than normal. Attempts to gain in depth nursing notes have been unsuccessful. The patient is a poor historian and this is reportedly, relatively close to her baseline. She was last admitted under relatively similar circumstances in July and had been evaluated for more ongoing use a CPAP and even Trilogy. It sounds like she is noncompliant with her CPAP at home. She admits to cough of yellowish sputum but denies any fever or shaking chills. She is unaware of her location or the date but does know her name. Onset (ago): day(s) Related Data Home Medications Medication Instructions Recorded Confirmed Florastor 250 mg PO BID 03/14/18 10/31/18 Lyrica 75 mg PO BID 03/14/18 10/31/18 acetaminophen 650 mg PO Q6H PRN 03/14/18 10/31/18 acetaminophen-codeine 1 tab PO TID PRN 03/14/18 10/31/18 aspirin 1 tab PO DAILY 03/14/18 10/31/18 atorvastatin 40 mg PO QPM 03/14/18 10/31/18 magnesium hydroxide [Milk of 30 ml PO DAILY PRN 03/14/18 10/31/18 Magnesia] multivitamin 1 tab PO DAILY 03/14/18 10/31/18 nystatin 1 applic TOPICAL BID 03/14/18 10/31/18 sennosides [senna] 8.6 mg PO BEDTIME 03/14/18 10/31/18 lorazepam 0.5 mg PO Q6H PRN 07/18/18 10/31/18 paroxetine HCl 20 mg PO DAILY 07/18/18 10/31/18 Saccharomyces boulardii [Florastor] 250 mg PO BID 10/31/18 10/31/18 baclofen 10 mg PO TID 10/31/18 10/31/18 buspirone 10 mg PO TID 10/31/18 10/31/18 hydrocortisone 1 applic TOPICAL BID 10/31/18 10/31/18 lidocaine [Aspercreme (lidocaine)] 1 patch TOPICAL DAILY 10/31/18 10/31/18 menthol [Biofreeze (menthol)] 1 applic TOPICAL BID 10/31/18 10/31/18 mirtazapine 15 mg PO BEDTIME 10/31/18 10/31/18 trazodone 50 mg PO BEDTIME 10/31/18 10/31/18 Allergies Allergy/AdvReac Type Severity Reaction Status Date / Time bee venom protein (honey bee) Allergy unknown Verified 07/18/18 18:50 sulfabenzamide Allergy Verified 03/14/18 10:50 Review of Systems Constitutional Denies chills, Denies fever(s), Denies lethargy and Reports weakness Eyes Denies change in vision, Denies eye discharge, Denies irritation and Denies loss of vision ENT Ears, Nose, Mouth, and Throat: Denies change in voice, Denies neck pain and Denies sore throat Cardiovascular Denies chest pain, Denies irregular heart rhythm, Denies lightheadedness, Denies palpitations, Reports dyspnea, Denies dyspnea on exertion and Denies orthopnea Respiratory Reports cough, Reports dyspnea, Denies dyspnea on exertion and Denies wheezing Gastrointestinal Gastrointestinal: Denies abdominal pain, Denies change in bowel habits, Denies d iarrhea, Denies nausea and Denies vomiting Genitourinary Denies hematuria, Denies flank pain, Denies urinary incontinence and Denies urinary urgency Musculoskeletal Denies neck pain Integumentary/Breasts Denies pruritus, Denies erythema, Denies rash and Denies wounds Neurologic Denies confusion, Denies loss of vision and Reports weakness Psychiatric Denies anxiety, Denies confusion, Denies depression, Denies homicidal ideation and Denies suicidal ideation Endocrine Denies palpitations Hematologic/Lymphatic Denies easy bruising Allergic/Immunologic Denies wheezing [facility] Medical History Anxiety (Acute) Cardiomyopathy (Acute) Chronic respiratory failure with hypoxia and hypercapnia (Acute) Diabetes (Acute) Fusion of lumbar spine (Acute) Hypoventilation (Acute) Insomnia (Acute) Lacunar infarction (Acute) Posterior reversible encephalopathy syndrome (Acute) Tardive dyskinesia (Acute) Arthritis of knee (Chronic) Back pain (Chronic) Scoliosis (Chronic) Family History (Updated 07/18/18 @ 18:00 by Meera Mauro DO) Mother Cancer Father No problems noted. Brother Heart attack Social History household members: none housing: assisted living facility Smoking Status: Never smoker alcohol intake: current Family History Mother Cancer Father No problems noted. Brother Heart attack Social History household members: none housing: assisted living facility Smoking Status: Never smoker alcohol intake: current Exam Narrative Exam Narrative: GENERAL: 63-year-old female appears older than stated age, chronically ill and in respiratory distress, demonstrating tachypnea with some work of breathing on arrival, this improves with nasal cannula and more so with high-flow nasal cannula. AOx1 (reported at baseline) HEAD: Atraumatic. Normocephalic. No temporal or scalp tenderness. EYES: Pupils equal round and reactive. Extraocular motions intact. No scleral icterus. No injection or drainage. ENT: Nose without bleeding, purulent drainage or septal hematoma. Throat without erythema, tonsillar hypertrophy or exudate. Uvula midline. Airway patent. NECK: Trachea midline. No JVD or lymphadenopathy. Supple, nontender, no meningeal signs. CARDIOVASCULAR: Regular rate and rhythm without murmurs, gallops, or rubs. RESPIRATORY: Decreased breath sounds B/L with some faint basilar crackles. GASTROINTESTINAL: Abdomen soft, non-tender, nondistended. No hepato-sp lenomegaly, or palpable masses. No guarding. EXTREMITIES: No clubbing, cyanosis, or edema. No joint tenderness, effusion, or edema noted. BACK: Nontender without deformity or crepitance. No flank tenderness. NEURO: AOx1. SKIN: No rash or erythema. Initial Vital Signs Initial Vital Signs: Vital Signs Temperature 99 F 10/31/18 16:58 Pulse Rate 90 10/31/18 16:58 Respiratory Rate 22 10/31/18 16:58 Blood Pressure 102/50 L 10/31/18 16:58 Pulse Oximetry 89 L 10/31/18 16:58 Course Orders Ordered: ED Orders 10/31/18 17:00 Complete Blood Count AUTO DIFF Stat Comprehensive Metabolic Panel Stat Ketones (Beta-Hydroxybutyrate) Stat Lactate (Lactic Acid) Stat Procalcitonin Stat 10/31/18 17:07 Arterial Blood Gas Stat 10/31/18 17:14 EKG-12 Lead Stat 10/31/18 18:24 Blood Culture Stat 10/31/18 20:32 XR chest 1V Stat B Type Natriuretic Peptide Stat Discontinued Medications Doxycycline Hyclate (Vibramycin) 100 mg PO NOW ONE Stop: 10/31/18 21:44 Last Admin: 10/31/18 21:56 Dose: 100 mg Sodium Chloride (Normal Saline 0.9%) 1,000 mls @ 1,000 mls/hr IV BOLUS ONE Stop: 10/31/18 17:48 Last Infusion: 10/31/18 17:19 Dose: 0 mls/hr Admin: 10/31/18 16:53 Dose: 1,000 mls/hr Consultations Consultation #1: hospitalist is happy to accept Vital Signs - 8 hr 10/31/18 16:58 10/31/18 17:15 10/31/18 18:02 Temperature 99 F Pulse Rate 90 88 85 Respiratory Rate 22 22 20 Blood Pressure [Left Arm] 102/50 L 104/50 L 129/106 H Pulse Oximetry 89 L 93 94 10/31/18 19:19 10/31/18 19:45 10/31/18 20:15 Temperature Pulse Rate 84 77 81 Respiratory Rate 12 15 14 Blood Pressure [Left Arm] 106/63 108/57 L 113/77 Pulse Oximetry 94 91 95 Medical Decision Making Lab Data Result diagrams: 10/31/18 17:00 10/31/18 17:00 Lab Results 10/31/18 10/31/18 10/31/18 Range/Units 17:00 17:00 17:00 WBC 8.3 (4.5-11.0) X10^3/uL RBC 4.23 (4.0-5.2) X10^6/uL Hgb 13.0 (12.0-16.0) g/dL Hct 40.0 (36-46) % MCV 94.6 (80-100) fL MCH 30.7 (26-34) PG MCHC 32.5 (30-36) % RDW 14.6 (11.6-14.8) % Plt Count 276 (150-400) X10^3/uL Neut % (Auto) 69.0 (50-75) % Lymph % (Auto) 21.7 L (25-40) % [place] % (Auto) 7.1 (3-14) % Eos % (Auto) 1.7 L (2-4) % Baso % (Auto) 0.5 (0-2) % Neut # (Auto) 5700 (4433-7650) /uL Lymph # (Auto) 1800 (5413-0466) /uL [place] # (Auto) 600 (0-900) /uL Eos # (Auto) 100 (0-450) /uL Baso # (Auto) 0 (0-100) /uL ABG pH (7.35-7.45) ABG pCO2 (35-45) mmHg ABG pO2 (80-100) mmHg ABG HCO3 (22-26) mmol/L ABG Total CO2 (21-31) mmol/L ABG O2 Saturation (95-100) % ABG Base Excess (-2-2) mmol/L FiO2 Sodium 139 (137-145) mmol/L Potassium 4.3 (3.4-5.1) mmol/L Chloride 94 L (98-107) mmol/L Carbon Dioxide 41 H* (22-32) mmol/L BUN 15 (7-17) mg/dL Creatinine 0.60 (0.52-1.04) mg/dL Estimated GFR > 60.0 (>60) mL/min BUN/Creatinine Ratio 25.0 H (6-22) Glucose 152 H (80-110) mg/dL Lactate (0.7-2.1) mmol/L Calcium 9.0 (8.4-10.2) mg/dL Total Bilirubin 1.0 (0.2-1.3) mg/dL AST 22 (14-36) IU/L ALT 7 L (9-52) IU/L Alkaline Phosphatase 106 (38-126) U/L B-Natriuretic Peptide (<100) Total Protein 7.0 (6.3-8.2) g/dL Albumin 3.9 (3.5-5.0) g/dL Globulin 3.1 (1.7-4.1) g/dL Albumin/Globulin Ratio 1.3 (1.0-2.8) Procalcitonin < 0.05 (<0.5) ng/mL Ketones 0.13 (<0.27) mmol/L 10/31/18 10/31/18 10/31/18 Range/Units 17:00 17:07 20:32 WBC (4.5-11.0) X10^3/uL RBC (4.0-5.2) X10^6/uL Hgb (12.0-16.0) g/dL Hct (36-46) % MCV (80-100) fL MCH (26-34) PG MCHC (30-36) % RDW (11.6-14.8) % Plt Count (150-400) X10^3/uL Neut % (Auto) (50-75) % Lymph % (Auto) (25-40) % [place] % (Auto) (3-14) % Eos % (Auto) (2-4) % Baso % (Auto) (0-2) % Neut # (Auto) (0306-7083) /uL Lymph # (Auto) (7619-6509) /uL [place] # (Auto) (0-900) /uL Eos # (Auto) (0-450) /uL Baso # (Auto) (0-100) /uL ABG pH 7.39 (7.35-7.45) ABG pCO2 62.2 H* (35-45) mmHg ABG pO2 50 L (80-100) mmHg ABG HCO3 38 H (22-26) mmol/L ABG Total CO2 39 H (21-31) mmol/L ABG O2 Saturation 83 L* (95-100) % ABG Base Excess 13.0 H (-2-2) mmol/L FiO2 21 Sodium (137-145) mmol/L Potassium (3.4-5.1) mmol/L Chloride (98-107) mmol/L Carbon Dioxide (22-32) mmol/L BUN (7-17) mg/dL Creatinine (0.52-1.04) mg/dL Estimated GFR (>60) mL/min BUN/Creatinine Ratio (6-22) Glucose (80-110) mg/dL Lactate 1.3 (0.7-2.1) mmol/L Calcium (8.4-10.2) mg/dL Total Bilirubin (0.2-1.3) mg/dL AST (14-36) IU/L ALT (9-52) IU/L Alkaline Phosphatase (38-126) U/L B-Natriuretic Peptide 101 H (<100) Total Protein (6.3-8.2) g/dL Albumin (3.5-5.0) g/dL Globulin (1.7-4.1) g/dL Albumin/Globulin Ratio (1.0-2.8) Procalcitonin (<0.5) ng/mL Ketones (<0.27) mmol/L Point of Care Testing Glucose POC 153 Point of care testing: Point of Care Testing Glucose POC 153 Imaging Data Chest x-ray: Radiologist's impression: [address] [address] XRay Report Signed Patient: Shirley Mason#: [id number] : 4Acct:[id number] Age/Sex: 63 / FDate of Service: 10/31/18 Loc: ED Accession Number: [id number] Procedure: XR chest 1V Ordering Provider: Carlyle Rocha D.O. PROCEDURE: XR CHEST 1V INDICATIONS: SOB, hypoxic TECHNIQUE: One view of the chest was acquired. COMPARISON: [facility], [place], XR CHEST 1V, 07/18/2018, 11:18. FINDINGS: Surgical changes and devices: Right-sided thoracolumbar fusion hardware. Lungs and pleura: Mild diffuse interstitial pulmonary opacity. No pleural effusions or pneumothorax. Mediastinum: Mediastinal contours appear normal. Heart size is normal. Bones and chest wall: No suspicious bony lesions. Overlying soft tissues appear unremarkable. IMPRESSION: Mild diffuse pulmonary edema versus atypical pneumonia. Dictated by: Stef Ramirez M.D. on 10/31/2018 at 21:00 Approved by: Stef Ramirez M.D. on 10/31/2018 at 21:01 [facility] Narrative Medical decision making narrative: Chronically ill patient presents with increased work of breathing and oxygen requirements, PO2 down to 50 on the ABG. She has increased weakness and presents with confusion. She lives in assisted living and reportedly cannot even get herself to the restroom. Patient is requiring high-flow nasal cannula and requires hospitalization for stabilization and further evaluation of her condition Discharge Plan Departure Patient Disposition: Admitted as Observation Clinical Impression: Acute on chronic respiratory failure with hypoxia and hypercapnia Admit Date/Time: 10/31/18 23:04 Admit Provider: Javid Calle
[2018-11-01] VITALS (20 sets, daily range): BP systolic 112–133; BP diastolic 67–86; PULSE 69–88; RESP 14–28; TEMP 36.6–37.5; O2SAT 80–99; BMI 31.7
--- NOTE | 2018-11-01 | DI.ECHO.S_ITS ---
[facility] +---------+ : : [address] : : : : [place], [place] : : : : [id number] : : : : Phone: [phone] Echocardiogram Report + + :Name: ADEOLA PATRICK Study Date: 11/02/2018 Height: 68 in : :[facility] Exam Location: [facility] Weight: 208 lb : : Gender: Female BSA: 2.1 m2 : :: 1955 Age: 63 yrs BP: 104/62 mmHg: :Reason For Study: SOB/ Hypoxemia/ severe : :Ordering Physician: Regina : :Hospitalist Performed By: Akiko Page : :Referring: OCTAVIO KO : + + Interpretation Summary 1) Normal left ventricular size, wall motion, and systolic function (EF 60- 65%). 2) Normal right ventricular size and function. 3) There is severe aortic stenosis (valve area 0.55cm2, mean gradient 50mmHg, severity ratio 0.18). 4) There is mild aortic regurgitation. 5) The ascending aorta is mildly enlarged at 4.2cm. 6) Compared to the Echo done 03/15/2018, aortic stenosis has progressed but remains in the severe range. Procedure: A two-dimensional transthoracic echocardiogram with color flow and Doppler was performed. The study quality was technically difficult. Comparison is made with the echocardiogram of 03/15/2018. A contrast injection of Definity was performed to improve assessment of LV function. The patient was in normal sinus rhythm during the exam. Left Ventricle: There is mild concentric left ventricular hypertrophy. The left ventricle is normal in size. The ejection fraction is estimated to be 65- 70%. There are no focal wall motion abnormalities. Right Ventricle: The right ventricle is normal in size and function. Atria: The left atrium is moderately dilated. Right atrial size is normal. There is no Doppler evidence for an interatrial shunt. Mitral Valve: The mitral valve leaflets appear mildly thickened, but open well. There is mild mitral annular calcification. There is no mitral regurgitation noted. Aortic Valve: The aortic valve is mildly calcified. Leaflet mobility is severely reduced. The peak aortic velocity is 4.5 m/sec. The peak aortic velocity on the previous exam was 4.0 m/sec. The aortic valve mean gradient is 49.8 mmHg. The calculated aortic valve area is 0.55 cm2. There is severe aortic stenosis. There is mild aortic regurgitation. Tricuspid Valve: The tricuspid valve is normal in structure and function. There is a trace or physiologic amount of tricuspid regurgitation. Pulmonary artery pressures cannot be estimated because of the lack of a measurable TR jet velocity. Pulmonic Valve: The pulmonic valve is not well visualized. There is trace pulmonic regurgitation. Great Vessels: The aortic root is normal size. The ascending aorta is mildly enlarged. The pulmonary artery is not well visualized, but is probably normal size. The IVC is of normal diameter and collapses less than 50% with a sniff. This suggests a right atrial pressure of 8 mm Hg. Pericardium/ Pleura There is no pericardial effusion. There is no pleural effusion. MMode/2D Measurements & Calculations LVIDd: 4.5 cm LVOT diam: 1.9 cm LVIDs: 3.1 cm Ao root diam: 3.7 cm FS: 31.4 % asc Aorta Diam: 4.2 cm IVSd: 1.0 cm LVPWd: 1.4 cm LV buenrostro. diameter/BSA (cm/m^2): 2.2 LV sys. diameter/BSA (cm/m^2): 1.5 LA A2 area: 29.8 cm2 RA long axis: 5.7 cm LA A4 area: 27.9 cm2 RA area: 17.9 cm2 LA length (vol): 6.8 cm RA vol: 47.7 ml LA vol: 102.9 ml RA : 23.0 ml/m2 LA vol index: 49.5 ml/m2 IVC diam: 2.0 cm RVD1 (basal): 3.6 cm RVD2 (mid): 2.9 cm TAPSE: 2.0 cm Doppler Measurements & Calculations Ao V2 max: 451.4 cm/sec LVOT Max Pradeep: 81.6 cm/sec Ao V2 mean: 341.1 cm/sec LV V1 max P.7 mmHg Ao max P.5 mmHg LV V1 VTI: 17.8 cm Ao mean P.8 mmHg ALANA(I,D): 0.55 cm2 Ao V2 VTI: 96.5 cm ALANA(V,D): 0.54 cm2 sev ratio: 0.18 ALANA indexed to BSA (cm^2/m^2): 0.26 AI P1/2t: 421.3 msec AI dec slope: 272.1 cm/sec2 MV E max pradeep: 71.1 cm/sec PA V2 max: 70.0 cm/sec MV A max pradeep: 72.8 cm/sec PA V2 mean: 49.4 cm/sec MV E/A: 0.98 PA mean P.1 mmHg Med Peak E' Pradeep: 3.7 cm/sec PA Accel Time: 0.09 sec E/E' med: 19.1 Lat Peak E' Pradeep: 5.9 cm/sec E/E' lat: 12.1 E/e' average: 15.6 MV P1/2t: 66.2 msec MV P1/2t max pradeep: 70.2 cm/sec SV(LVOT): 53.0 ml MVA(P1/2t): 3.3 cm2 Reading Physician:12:57 PM
[2018-11-01] MEDS: AZITHROMYCIN 500 MG in DEXTROSE 5% IN WATER 250 ML IV (02:15)
[2018-11-01] MEDS: SODIUM CHLORIDE 0.9% FLUSH 10 ML IV ×3 (02:58→20:07)
[2018-11-01] MEDS: SODIUM CHLORIDE 0.9% 250 ML 21 ML IV (02:58)
[2018-11-01] MEDS: CODEINE/ACETAMINOPHEN 30/300 TABLET 1 TAB PO ×3 (04:17→17:13)
--- NOTE | 2018-11-01 04:54 | PC.NURSE ---
NOC Shift: Pt admitted from [facility] for confusion, high blood glucose, increasing SOB. Pt admitted to ICU on heated hi-flow NC 50L 30%, sats stable above 92%. Pt complains of SOB w/exertion. Pt AAOx2 only, pt is confused does not know the date, situation or place, doesn't know city she is living in. BS posterior bases w/expiratory wheezes, fine crackles otherwise clear. Tx for pnuemonia seen on xray. VSS, SR, PAC's on tele. Pt has very poor mobility, takes 2 PA w/FWW to stand and pivot to bedside commode, pt has difficulty following direction and doesn't have much strength in both knees. States she has fallen in the last few weeks, but hasn't told anyone. Care management consult placed to evaluate if pt needs more care than assisted living.
[2018-11-01 05:08] LABS: Add Manual Diff / Slide Review NO; Basophils Absolute Auto 0 /uL (0-100); Basophils Percent Auto 0.3 % (0-2); Eosinophils Absolute Auto 100 /uL (0-450); Eosinophils Percent Auto 1.4 % (2-4); Hematocrit 37.8 % (36-46); Hemoglobin 12.3 g/dL (12.0-16.0); Lymphocytes Absolute Auto 1700 /uL (1100-4500); Lymphocytes Percent Auto 17.9 % (25-40); Mean Corpuscular HGB Conc 32.5 % (30-36); Mean Corpuscular Hemoglobin 30.6 PG (26-34); Mean Corpuscular Volume 94.3 fL (80-100); Monocytes Absolute Auto 700 /uL (0-900); Monocytes Percent Auto 7.8 % (3-14); Neutrophils Absolute Auto 6900 /uL (1500-7000); Neutrophils Percent Auto 72.6 % (50-75); Platelet Count 241 X10^3/uL (150-400); Red Blood Cell Count 4.01 X10^6/uL (4.0-5.2); Red Cell Distribution Width 14.6 % (11.6-14.8); White Blood Cell Count 9.5 X10^3/uL (4.5-11.0)
[2018-11-01 05:12] LABS: Blood Urea Nitrogen 12 mg/dL (7-17); Carbon Dioxide 38 mmol/L (22-32); Chloride 98 mmol/L (98-107); Estimated Glomerular Filt Rate > 60.0 mL/min (>60); Glucose 117 mg/dL (80-110); HEMOLYSIS < 15 (0-50); Potassium 4.1 mmol/L (3.4-5.1); Sodium 140 mmol/L (137-145)
[2018-11-01 05:26] LABS: Procalcitonin < 0.05 ng/mL (<0.5)
--- NOTE | 2018-11-01 06:29 | P.HP_ITS ---
History of Present Illness Date Patient Seen: 11/01/18 Time Patient Seen: 01:30 Chief complaint: Mental status change, high glucose Narrative: Shirley Mason is a 63-year-old female patient with history significant for chronic respiratory failure with hypoxia and hypercapnia, hypoventilation, cardiomyopathy, CVA, posterior reversible encephalopathy syndrome, insomnia and tardive dyskinesia who presents to the ER from [facility] living with increasing shortness of breath and weakness. Coming from an assisted living minimal information is available other than her current med list. But per staff, the patient is functioning approximately at her baseline. The patient is a poor historian and unable to contribute much information. The patient does complain of fatigue that has progressed to weakness. She reports usually getting around with a walker but has difficulty now. The patient is to be on CPAP however the patient is believed to be noncompliant. Patient was hospitalized in July for similar circumstances. She denies recent cold or illness has no fever chills. She denies headache or dizziness, nasal congestion or sore throat. She has no complaints of chest pain or palpitations, shortness of breath does endorse chronic cough. She denies abdominal pain, nausea or vomiting, diarrhea or constipation. She acknowledges some urinary frequency but denies urgency burning or hematuria. In the ER the patient is found have a low-grade temperature at 99?, heart rate of 90, blood pressure of 102/50 respiratory rate of 22 with an oxygen saturation 89% on room air that improved to 93% on 3 L nasal cannula. Chest x-ray is taken which shows no infiltrates and no significant pulmonary vascular congestion. On laboratory analysis she has a normal white count 8.3 with hemoglobin 13 hematocrit of 40. Her platelets are 276. Electrolytes on chemistry panel are within normal range with a BUN of 15 and a creatinine of 0.6. Her nonfasting blood sugar is 152. Ketones are negative at 0.13. Lactate is 1.3 and procalcitonin is 0.05. BNP is 101. Arterial blood gas reveals a normal pH at 7.39, pCO2 of 62.2, PO2 low at 50 with a bicarb of 38 and base excess of 13 on room air. The patient is started on heated unified nasal cannula with improvement in oxygen saturation to 96%. The patient is admitted to the hospital for acute on chronic hypoxic hypercarbic respiratory failure. Patient History Medical History COPD (chronic obstructive pulmonary disease) (Acute) Anxiety (Acute) Cardiomyopathy (Acute) Chronic respiratory failure with hypoxia and hypercapnia (Acute) Diabetes (Acute) Fusion of lumbar spine (Acute) Hypoventilation (Acute) Insomnia (Acute) Lacunar infarction (Acute) Posterior reversible encephalopathy syndrome (Acute) Tardive dyskinesia (Acute) Arthritis of knee (Chronic) Back pain (Chronic) Scoliosis (Chronic) Surgical History (Updated 11/01/18 @ 07:18 by ISAK Adams) History of spinal surgery (Acute) Family History Mother Cancer Father No problems noted. Brother Heart attack Social History household members: none housing: assisted living facility Smoking Status: Never smoker alcohol intake: former Family & Social History Family History Mother Cancer Father No problems noted. Brother Heart attack Social History: household members none Prior Living Arrangements Assisted Living Safety & Behavioral: Feels Safe in Current Yes Environment Been Physically Hurt or No Threatened By a Person Suicidal Ideation Description None Tobacco & Substance use: Smoking Status Never smoker alcohol intake former alcohol intake frequency other Substance Use Type does not use Comment: The patient is a poor historian however she lives in [facility] assisted living. He does indicate that her father had diabetes and her mother had uterine cancer. She has 1 brother with hypertension. She has no family history of other cardiac disease respiratory or kidney disease. Smoking: Patient denies smoking Alcohol: Patient denies consuming alcohol Substance use: The patient denies recreation pharmaceuticals herbal or cannabis products. Advanced directive: Documents accompanying the patient from [facility] include a pulsed form which indicates the patient is a FULL CODE. The patient designates her sister Robina has her surrogate decision maker. Meds Home Medications Medication Instructions Recorded Confirmed Type Florastor 250 mg PO BID 03/14/18 10/31/18 History Lyrica 75 mg PO BID 03/14/18 10/31/18 History acetaminophen 650 mg PO Q6H PRN 03/14/18 10/31/18 History acetaminophen-codeine 1 tab PO TID PRN 03/14/18 10/31/18 History aspirin 1 tab PO DAILY 03/14/18 10/31/18 History atorvastatin 40 mg PO QPM 03/14/18 10/31/18 History magnesium hydroxide [Milk of 30 ml PO DAILY PRN 03/14/18 10/31/18 History Magnesia] multivitamin 1 tab PO DAILY 03/14/18 10/31/18 History nystatin 1 applic TOPICAL BID 03/14/18 10/31/18 History sennosides [senna] 8.6 mg PO BEDTIME 03/14/18 10/31/18 History lorazepam 0.5 mg PO Q6H PRN 07/18/18 10/31/18 History paroxetine HCl 20 mg PO DAILY 07/18/18 10/31/18 History Saccharomyces boulardii [Florastor] 250 mg PO BID 10/31/18 10/31/18 History baclofen 10 mg PO TID 10/31/18 10/31/18 History buspirone 10 mg PO TID 10/31/18 10/31/18 History hydrocortisone 1 applic TOPICAL BID 10/31/18 10/31/18 History lidocaine [Aspercreme (lidocaine)] 1 patch TOPICAL DAILY 10/31/18 10/31/18 History menthol [Biofreeze (menthol)] 1 applic TOPICAL BID 10/31/18 10/31/18 History mirtazapine 15 mg PO BEDTIME 10/31/18 10/31/18 History trazodone 50 mg PO BEDTIME 10/31/18 10/31/18 History Allergies Allergy/AdvReac Type Severity Reaction Status Date / Time bee venom protein (honey bee) Allergy unknown Verified 07/18/18 18:50 sulfabenzamide Allergy Verified 03/14/18 10:50 Review of Systems Review of Systems All systems reviewed & are unremarkable except as noted in HPI and below Exam Vital Signs (past 8 hours): - 10/31/18 23:07 10/31/18 23:17 11/01/18 00:22 Temperature 99.5 F Pulse Rate 72 73 78 Respiratory Rate 19 15 26 H Blood Pressure 133/86 Blood Pressure [Left Arm] 130/46 L Pulse Oximetry 94 97 95 11/01/18 01:14 11/01/18 01:54 11/01/18 04:02 Temperature 99.3 F Pulse Rate 88 78 Respiratory Rate 28 H 17 Blood Pressure 112/67 Blood Pressure [Left Arm] Pulse Oximetry 97 95 97 11/01/18 06:25 Temperature Pulse Rate 69 Respiratory Rate 14 Blood Pressure Blood Pressure [Left Arm] Pulse Oximetry 96 Fraction of Inspired Oxygen 42 Oxygen Delivery Method Heated High Flow Oxygen Flow Rate 50 Narrative Exam Narrative: GENERAL APPEARANCE: well developed, well nourished, in no acute distress. HEAD: Normocephalic, atraumatic, no scalp lesions, involuntary facial movements. EYES: pupils equal, round, reactive to light and accommodation, sclera non- icteric, extraocular movement intact . EARS: normal external structures, no ear pain NOSE: sinuses non tender to percussion, no rhinorrhea ORAL CAVITY: mucosa moist without lesions or exudate, multiple missing teeth and poor dentition, palate normal, tongue in midline. THROAT: normal, no erythema, no exudate, pharynx normal, uvula midline. NECK/THYROID: neck supple, no jugular venous distention, no carotid bruit, no thyromegaly, trachea midline. LYMPH NODES: no cervical or supraclavicular lymphadenopathy. SKIN: warm and dry, no suspicious lesions, no rashes HEART: regular rate and rhythm, S1-S2, 2/6 systolic murmur loudest at mid left s ternal border, no rubs or gallops, brisk capillary refill, no edema LUNGS: Breath sounds globally diminished, bibasilar crackles, posterior expiratory wheeze. CHEST: Shallow tidal volume, symmetrical movement, no accessory muscle use, no pain to AP and lateral compression. ABDOMEN: Soft, round, no epigastric or abdominal tenderness on palpation, no guarding or peritoneal signs, no organomegaly, no flank or suprapubic tenderness, quite bowel tones. BACK: nontender to palpation, no palpable muscle spasms EXTREMITIES: moves all extremities, strength is 5/5 and symmetrical NEUROLOGIC: AAO to person only, involuntary facial movements, tardive dyskinesia cranial nerves II-XII grossly intact , motor strength normal upper and lower extremities, sensory exam intact to light touch, hearing grossly normal to speech. PSYCH: alert and cooperative, short response to questions. Objective Labs Result Diagrams: 11/01/18 04:47 11/01/18 04:47 Labs: Laboratory Results - last 24 hr 10/31/18 10/31/18 10/31/18 17:00 17:00 17:00 WBC 8.3 RBC 4.23 Hgb 13.0 Hct 40.0 MCV 94.6 MCH 30.7 MCHC 32.5 RDW 14.6 Plt Count 276 Neut % (Auto) 69.0 Lymph % (Auto) 21.7 L Phelps % (Auto) 7.1 Eos % (Auto) 1.7 L Baso % (Auto) 0.5 Neut # (Auto) 5700 Lymph # (Auto) 1800 Phelps # (Auto) 600 Eos # (Auto) 100 Baso # (Auto) 0 ABG pH ABG pCO2 ABG pO2 ABG HCO3 ABG Total CO2 ABG O2 Saturation ABG Base Excess FiO2 Sodium 139 Potassium 4.3 Chloride 94 L Carbon Dioxide 41 H* BUN 15 Creatinine 0.60 Estimated GFR > 60.0 BUN/Creatinine Ratio 25.0 H Glucose 152 H Lactate Calcium 9.0 Total Bilirubin 1.0 AST 22 ALT 7 L Alkaline Phosphatase 106 B-Natriuretic Peptide Total Protein 7.0 Albumin 3.9 Globulin 3.1 Albumin/Globulin Ratio 1.3 Procalcitonin < 0.05 Nasal Screen MRSA (PCR) Ketones 0.13 10/31/18 10/31/18 10/31/18 17:00 17:07 20:32 WBC RBC Hgb Hct MCV MCH MCHC RDW Plt Count Neut % (Auto) Lymph % (Auto) Phelps % (Auto) Eos % (Auto) Baso % (Auto) Neut # (Auto) Lymph # (Auto) Phelps # (Auto) Eos # (Auto) Baso # (Auto) ABG pH 7.39 ABG pCO2 62.2 H* ABG pO2 50 L ABG HCO3 38 H ABG Total CO2 39 H ABG O2 Saturation 83 L* ABG Base Excess 13.0 H FiO2 21 Sodium Potassium Chloride Carbon Dioxide BUN Creatinine Estimated GFR BUN/Creatinine Ratio Glucose Lactate 1.3 Calcium Total Bilirubin AST ALT Alkaline Phosphatase B-Natriuretic Peptide 101 H Total Protein Albumin Globulin Albumin/Globulin Ratio Procalcitonin Nasal Screen MRSA (PCR) Ketones 11/01/18 11/01/18 11/01/18 00:10 04:47 04:47 WBC 9.5 RBC 4.01 Hgb 12.3 Hct 37.8 MCV 94.3 MCH 30.6 MCHC 32.5 RDW 14.6 Plt Count 241 Neut % (Auto) 72.6 Lymph % (Auto) 17.9 L Phelps % (Auto) 7.8 Eos % (Auto) 1.4 L Baso % (Auto) 0.3 Neut # (Auto) 6900 Lymph # (Auto) 1700 Phelps # (Auto) 700 Eos # (Auto) 100 Baso # (Auto) 0 ABG pH ABG pCO2 ABG pO2 ABG HCO3 ABG Total CO2 ABG O2 Saturation ABG Base Excess FiO2 Sodium Potassium Chloride Carbon Dioxide BUN Creatinine Estimated GFR BUN/Creatinine Ratio Glucose Lactate Calcium Total Bilirubin AST ALT Alkaline Phosphatase B-Natriuretic Peptide Total Protein Albumin Globulin Albumin/Globulin Ratio Procalcitonin < 0.05 Nasal Screen MRSA (PCR) Negative for mrsa Ketones 11/01/18 04:47 WBC RBC Hgb Hct MCV MCH MCHC RDW Plt Count Neut % (Auto) Lymph % (Auto) Phelps % (Auto) Eos % (Auto) Baso % (Auto) Neut # (Auto) Lymph # (Auto) Phelps # (Auto) Eos # (Auto) Baso # (Auto) ABG pH ABG pCO2 ABG pO2 ABG HCO3 ABG Total CO2 ABG O2 Saturation ABG Base Excess FiO2 Sodium 140 Potassium 4.1 Chloride 98 Carbon Dioxide 38 H BUN 12 Creatinine 0.50 L Estimated GFR > 60.0 BUN/Creatinine Ratio 24.0 H Glucose 117 H Lactate Calcium 9.0 Total Bilirubin AST ALT Alkaline Phosphatase B-Natriuretic Peptide Total Protein Albumin Globulin Albumin/Globulin Ratio Procalcitonin Nasal Screen MRSA (PCR) Ketones Assessment & Plan Assessment & Plan narrative: The patient is admitted to the hospital for acute on chronic hypoxic hypercarbic respiratory failure requiring continuous oxygen therapy. 1. Acute on chronic hypoxemic and hypercarbic respiratory failure, present on admission. Active. -patient presented from assisted living facility for hypoxemia with O2 saturation with Pulse oximetry upon arrival was 89%. -ABG reveals a pH of 7.39, pCO2 of 62.2, PO2 of 50, H CO3 of 38 saturation of 83% with a base excess of 13 on room air. -patient denies symptoms than weakness and fatigue, white count is 8.3, procalcitonin 0.05, lactic acid is 1.3. BNP is 101. -prior history of hypoxia and hypercarbia likely secondary to OHS, GREGORIO non compliant with CPAP, possible restrictive lung disease from scoliosis. -patient underwent pulmonary function test on 10/25 2018 with findings and an FEV1 of 65% with a 40% improvement with a bronchodilator challenge consistent with COPD -this appears to be related to exacerbation of COPD opposed to CHF with hypoventilation. -RT to evaluate and treat with heated high-flow oxygen goal to maintain oxygen saturation greater than 90%. 2. Cardiomyopathy, unclear type, chronic present on admission. Stable. -Continue home meds including aspirin 81 mg daily, atorvastatin 40 mg daily at bedtime, and metoprolol succinate 25 mg daily. 3. Anxiety, chronic, present on admission. Stable. -Continue paroxetine 20 mg daily and buspirone 10 mg 3 times daily, mirtazapine 15 mg at bedtime. -continue lorazepam 0.5 mg every 6 hours as needed -Patient does exhibit tardive dyskinesia unclear etiology but likely due to medications prescribed in the past. 4. Insomnia, chronic, present on admission. Stable. -Continue home medications including trazodone 50 mg at bedtime. 5. Back pain and muscle spasm, chronic, present on admission. Stable. -Continue baclofen 10 mg 3 times daily and Lyrica 75 mg twice daily. The patient is admitted to the hospital related to the severity of her symptoms and the risk for complications and adverse events. She is admitted observation with expected length of stay to be less than 2 midnights. Quality VTE Deep Vein Thrombosis/Pulmonary Embolism Present on Admission: No
[2018-11-01] MEDS: ENOXAPARIN 40 MG/0.4 ML SYRINGE SUBCUT (09:00)
[2018-11-01] MEDS: PARoxetine 20 MG TABLET PO (09:00)
[2018-11-01] MEDS: PREGABALIN 75 MG CAPSULE PO ×2 (09:00→20:08)
[2018-11-01] MEDS: BUSPIRONE 5 MG TABLET 10 MG PO ×3 (09:00→20:07)
[2018-11-01] MEDS: ASPIRIN EC 81 MG TABLET PO (09:01)
[2018-11-01] MEDS: BACLOFEN 10 MG TABLET PO ×3 (09:01→20:08)
[2018-11-01] MEDS: LIDOCAINE PATCH 1 EACH ADH..PATCH TOP (09:02)
--- NOTE | 2018-11-01 09:47 | PT.IIE ---
Surgical History (Last Updated 11/01/18 @ 07:18 by ISAK Adams) History of spinal surgery (Acute) Medical History (Last Reviewed 11/01/18 @ 07:17 by ISAK Adams) COPD (chronic obstructive pulmonary disease) (Acute) Anxiety (Acute) Cardiomyopathy (Acute) Chronic respiratory failure with hypoxia and hypercapnia (Acute) Diabetes (Acute) Fusion of lumbar spine (Acute) Hypoventilation (Acute) Insomnia (Acute) Lacunar infarction (Acute) Posterior reversible encephalopathy syndrome (Acute) Tardive dyskinesia (Acute) Arthritis of knee (Chronic) Back pain (Chronic) Scoliosis (Chronic) Physical Therapy Inpatient Evaluation/Re-Eval M1 PT/OT-IP Prior Functional Status Start: 11/01/18 09:40 Freq: NEEDED Status: Active Protocol: Document 11/01/18 09:40 [facility] (Rec: 11/01/18 09:47 [facility] [id number]) Medical Review Prior Functional Status Medical History Reviewed Yes Communication WNL Mobility and Gait Pt reports she transfers with 1PA with FWW at her [facility] Activities of Daily Living and IADL's Per pt, requires 1-2 PA for ADLs Social History Household Members none Living Arrangements Assisted Living Home Environment High Toilet Walk in Shower Home Equipment Grab Bars Near Toilet Grab Bars In Shower Employment Status Retired M2 PT-IP Current Condition Start: 11/01/18 09:40 Freq: NEEDED Status: Active Protocol: Document 11/01/18 09:40 [facility] (Rec: 11/01/18 09:47 [facility] [id number]) Physical Therapy Current Condition Current Condition Evaluation Date 11/01/18 Treatment Diagnosis Respiratory failure, cardiomyopathy M3 PT-IP Subjective Start: 11/01/18 09:40 Freq: NEEDED Status: Active Protocol: Document 11/01/18 09:40 [facility] (Rec: 11/01/18 09:47 [facility] [id number]) Subjective Physical Therapy Visit Type Type Initial Evaluation Visit Start Time 09:10 Visit Stop Time 09:38 Total Visit Minutes 28 Number of BLADE BONER Visits 0 Physical Therapy Visit Comments Patient Comments Pt reports back pain that she is concerned about Therapy Pain Assessment Pain When Pain Assessed During Mobility Pain Present Pain Present Pain Reported Location Bilateral Knee Pain Management Techniques Apply Cold M4 PT-IP Mobility and Gait Start: 11/01/18 09:40 Freq: NEEDED Status: Active Protocol: Document 11/01/18 09:40 [facility] (Rec: 11/01/18 09:47 [facility] [id number]) PT-Bed Mobility Assessment Supine to Sit Supine to Sit Moderate Assistance Scooting Scooting to Edge of Bed Minimal Assistance PT-Transfer Assessment Sit to and From Stand Sit to and from Stand Moderate Assistance Use of Upper Extremities Equipment Transfer Assistive Device Gait Belt Front Wheeled Walker Orthotic/Prosthetic Devices or Brace: No Transfers Transfer Destination Chair Transfer Technique Stand Step Pivot Transfer Ability Level of Assist Minimal Assistance Comments Mobility Comments Pt was able to stand with mod A and required min A for balance to transfer with FWW to chair. She required assistance for decent as she does not control decent into chair. M5 PT-IP Objective Assessments Start: 11/01/18 09:40 Freq: NEEDED Status: Active Protocol: Document 11/01/18 09:40 [facility] (Rec: 11/01/18 09:47 [facility] [id number]) Orientation Orientation/Cognition Level of Alertness Confusional State Orientation Name Comments Pt read date on board and asked year and asked what facility she was in and what town. Strength Lower Extremity Strength Assessment Bilaterally Impaired M6 PT-IP Treatment Start: 11/01/18 09:40 Freq: NEEDED Status: Active Protocol: Document 11/01/18 09:40 [facility] (Rec: 11/01/18 09:47 [facility] [id number]) Physical Therapy Treatment Education Education Provided Safety M7 PT-IP Assessment and Plan Start: 11/01/18 09:40 Freq: NEEDED Status: Active Protocol: Document 11/01/18 09:40 [facility] (Rec: 11/01/18 09:47 [facility] [id number]) PT Summary Assessment and Plan Potential Rehabilitation Potential Good Status of Condition at Evaluation Stable Summary Impairments Pain Strength Balance Bed Mobility Transfers Gait Activity Tolerance Assessment Summary Pt presents w/respiratory failure with requirement of supplemental O2. She is limited in activity tolerance, but was able to transfer with 1 PA. Further contact with facility required to determine what pt's baseline function is. She did c/o of back pain which was limiting with her transfer. Goals Bed Mobility Goal Contact Guard Assistance Transfer Goal Contact Guard Assistance Gait Goal Minimal Assistance Gait Distance 10ft Days to Meet Goals 4 Frequency of Treatment Frequency Of Treatment Once a Day Treatment Plan Physical Therapy Treatment Plan Bed Mobility Training Transfer Training Gait Training Therapeutic Exercise Balance Retraining Discharge Planning Hot or Cold Pack Neuromuscular Re-ed Other Recommendations and Next Treatment Contact facility to see if pt Focus is at baseline and what is baseline and what level of mobility they will accept her back with. Recommendations To Nursing Amount of Assist Needed 1 Person Assist Discharge Recommendations PT Discharge Recommendations Home with / Assist SNF Rehab Other Discharge Recommendations return to [facility] w/PT vs SNF rehab depending on if pt report of baseline is correct.
--- NOTE | 2018-11-01 13:19 | OT.IP.EVAL ---
Past Medical History (Last Reviewed 11/01/18 @ 07:17 by ISAK Adams) COPD (chronic obstructive pulmonary disease) (Acute) Anxiety (Acute) Cardiomyopathy (Acute) Chronic respiratory failure with hypoxia and hypercapnia (Acute) Diabetes (Acute) Fusion of lumbar spine (Acute) Hypoventilation (Acute) Insomnia (Acute) Lacunar infarction (Acute) Posterior reversible encephalopathy syndrome (Acute) Tardive dyskinesia (Acute) Arthritis of knee (Chronic) Back pain (Chronic) Scoliosis (Chronic) Surgical History (Last Updated 11/01/18 @ 07:18 by ISAK Adams) History of spinal surgery (Acute) Occupational Therapy Inpatient Evaluation/Re-Eval M1 PT/OT-IP Prior Functional Status Start: 11/01/18 09:40 Freq: NEEDED Status: Active Protocol: Document 11/01/18 13:19 NIELS (Rec: 11/02/18 07:55 [facility] [id number]) Medical Review Prior Functional Status Medical History Reviewed Yes Communication WNL Mobility and Gait Pt reports she transfers with 1PA with FWW at her [facility], pt primarily w/c bound she does transfers from bed to w/c to toilet Activities of Daily Living and IADL's Per pt, requires 1-2 PA for ADLs, pt had assist with hair brushing, upper and lower body dressing, bathing and toileting at [facility] per previous admission notes, Prior Functional Level (Other details) pt transported to dining room for meals via w/c. Social History Household Members none Living Arrangements Assisted Living Number of Floors (Floors) One Floor Number of Stairs To Enter/Railing? none Home Environment High Toilet Walk in Shower Home Equipment Grab Bars Near Toilet Grab Bars In Shower Employment Status Retired M2 OT-IP Current Condition Start: 11/02/18 07:30 Freq: Status: Active Protocol: Document 11/01/18 13:19 PJWilliam (Rec: 11/02/18 07:55 [facility] [id number]) Occupational Therapy Current Condition Current Condition Evaluation Date 11/01/18 Treatment Diagnosis decr'd act mirna, self care, mobility w/dx of acute on chronic respiratory failure Diagnosis Onset Date 10/31/18 Post Operative Precautions Other Precautions fall risk, confusion M3 OT- IP Subjective and Pain Start: 11/02/18 07:30 Freq: Status: Active Protocol: Document 11/01/18 13:19 PJM (Rec: 11/02/18 07:55 PJ [id number]) OT- Subjective Occupational Therapy Visit Type Type Initial Evaluation Visit Start Time 12:45 Visit Stop Time 13:19 Total Visit Minutes 34 Occupational Therapy Visit Comments Patient Comments My brief is wet. Patient/Caregiver Goals to go back to [facility] OT Pain Assessment Pain When Pain Assessed After Treatment Pain Present Pain Present Pain Reported Location Back Scale Used pt does not rate chronic low back pain M4 OT- IP ADL's Start: 11/02/18 07:30 Freq: Status: Active Protocol: Document 11/01/18 13:19 PJM (Rec: 11/02/18 07:55 [facility] [id number]) OT UOT-Sucx-Hcmmiqn General Evaluation Self-Feeding Ability Independent Areas Needing Assistance Cutting Food Opening Containers Comments OT Self-Feeding Comments pt needs full meal tray set up then able to feed self with min spilling due to BUE dyskinesia OT ADL-Grooming General Evaluation Grooming Ability Moderate Assistance Areas Needing Assistance Combing/Brushing Hair OT ADL-Oral Care General Eval Oral Care Ability Minimal Assistance Areas of Assistance Brushing Teeth Comments Oral Care Comments pt needed min assist to manage cap on toothpaste then SBA with oral care once all items within reach OT ADL-Dressing General Eval Upper Body Dressing Ability Minimal Assistance Lower Body Dressing Ability Moderate Assistance Comments OT Dressing Comments pt needs min assist with gown management and mod assist to start socks and get brief over feet. O2 sats stable 92-95 during lower body dressing on heated high flow O2 30L @35% OT ADL-Toileting General Evaluation Toileting Ability Total Assistance Areas Needing Assistance Manage Clothing Perform Perineal Hygiene Comments OT Toileting Comments Pt needs assist of one person for standing balance while second person manages vanessa care and brief. OT ADL-Bathing Comments OT Bathing Comments did not occur, pt has caregiver assist at [facility] for showering M5 OT- IP IADL's Start: 11/02/18 07:30 Freq: Status: Active Protocol: Document 11/01/18 13:19 PJM (Rec: 11/02/18 07:55 [facility] [id number]) OT-Instrumental Activities of Daily Living Deficits IADL Deficits Identified Deficits Home Safety Awareness Awareness of Need for Assistance at Home Good Awareness Medication Management Medication Management Caregiver Administers Money Management Money Management Caregiver Provides Assistance Meal Preparation Meal Preparation Caregiver Provides Assist Meal Preparation Comments 3 meals/day provided Dishwasher Busser Dishwasher Busser Caregiver Provides Assist Driving Driving Caregiver Provides Assist Driving Comments pt no longer drives M6 OT- IP Functional Cognition Start: 11/02/18 07:30 Freq: Status: Active Protocol: Document 11/01/18 13:19 PJM (Rec: 11/02/18 07:55 [facility] [id number]) Cognitive Factors Limiting Selfcare Function Cognitive Ability Level of Alertness Alert Patient Orientation Name Month Date Year Attention Span Ability Capable of Focused Attention Ability to Follow Commands Able to Follow One Step Commands Memory Description Short Term Impaired Safety Awareness Decreased Recall of Precautions Problem Solving Ability Unable to Identify Errors Needs Assist to Identify Solutions Executive Function Ability Unable to Make Plans Unable to Remember Details Cognitive Comments Cognitive Assessment Comments Pt alert and able to state date, but confused about place and situation. Pt has short term memory deficits in conversation. OT- Vision and Hearing OT- Hearing Assessment OT- Hearing Assessment WFL OT- Vision Assessment Visual Acuity WFL Glasses All The Time M7 OT- IP Mobility and Balance Start: 11/02/18 07:30 Freq: Status: Active Protocol: Document 11/01/18 13:19 PJ (Rec: 11/02/18 07:55 [facility] [id number]) OT- Bed Mobility Assessment Rolling Type of Rolling Roll to Right Roll to Left Level of Assistance Minimal Assistance 1 Person Assistance Bedrails Supine to Sit Supine to Sit Assist Minimal Assistance 1 Person Assistance Head of Bed Elevated Sit to Supine Sit to Supine Assist Minimal Assistance 2 Person Assistance Scooting Scooting to Edge of Bed Moderate Assistance 1 Person Assistance Scooting Up and Down in Bed Maximum Assistance 2 Person Assistance OT-Transfer Assessment Sit to and From Stand Sit to and from Stand Moderate Assistance 1 Person Assistance Devices Transfer Assistive Devices Gait Belt Front Wheeled Walker Comments Mobility Comments pt arises to stand slowly and needs mod verbal cues to stand upright, no buckling of knees noted this session during standing for vanessa care and brief change OT- Gait Assessment Comments Gait Ability Comments see P.T. notes OT- Balance Assessment Sitting Balance and Reactions Static Sitting Balance Ability Good Dynamic Sitting Balance Ability Good Standing Balance and Reactions Static Standing Balance Ability Fair Comments Other Balance Tests/Deviations/Treatment pt able to reach down towards : feet to start socks and brief with no loss of balance noted M8 OT- IP Objective Assessments Start: 11/02/18 07:30 Freq: Status: Active Protocol: Document 11/01/18 13:19 PJM (Rec: 11/02/18 07:55 PJ [id number]) OT Gross Range of Motion Upper Extremity Range of Motion Assessment Within Functional Limits ROM Impairments except B shoulder scaption limtied to 90 degrees by stiffness OT Strength Upper Extremity Strength Assessment Within Functional Limits Comments Strength Comments no focal weakness noted OT- Coordination Assessment Upper Extremity Finger to Nose Test Bilateral UE Impaired Finger Tapping Test Bilateral UE Impaired Comments Coordination Comments pt has intermittent dyskinesia in BUE OT-Muscle Tone Assessment Comments Muscle Tone Comments pt has hx of tardive dyskinesia OT Sensation Assessment Comments Summary Comments pt detects lt touch in BUE M9 OT- IP Assessment and Plan Start: 11/02/18 07:30 Freq: Status: Active Protocol: Document 11/01/18 13:19 PJM (Rec: 11/02/18 07:55 PJ [id number]) OT Summary Assessment and Plan Potential Analytic Complexity at Evaluation Low Summary OT Impairments Strength Balance Functional Cognition Functional Mobility Grooming Dressing Toileting Bathing Toilet Transfers Shower Transfers Assessment Summary Low complexity OT assessment completed on this 63 yr old pt admitted with acute on chronic respiratory failure. Pt currently on heated high flow O2 30L at 35%. O2 sats stable throughout this session 92-95 with activity and 95-97 at rest. Pt appears to be close to her baseline level of self care function based on review of chart notes from previous admit. Pt lives at [facility] and has caregiver assist with grooming, dressing , bathing and toileting. Will provide OT services here to increase activity tolerance for basic self care skills and functional transfers. Anticipate pt will return to [facility] when medically stable vs short SNF stay pending progress here. Goals Grooming Goal Standby Assistance Dressing Goal Minimal Assistance Toileting Goal Moderate Assistance Toilet Transfer Goal Minimal Assistance Patient/Caregiver Education Goal Demonstrate Energy Conservation and Pacing Days to Meet Goals 5 Frequency of Treatment Frequency Of Treatment Once a Day Treatment Plan OT Treatment Plan ADL Training Functional Mobility Patient/Family Education Discharge Planning Discharge Recommendations Other Discharge Recommendations back to [facility] vs short SNF stay pending progress here
--- NOTE | 2018-11-01 15:03 | PM.PN.1 ---
Exam Vital Signs (past 8 hours): - 11/02/18 04:03 11/02/18 06:00 11/02/18 07:18 Temperature 97.9 F 98.4 F Pulse Rate 70 74 Respiratory Rate 12 14 Blood Pressure 99/64 104/62 Pulse Oximetry 94 96 92 Fraction of Inspired Oxygen 38 Oxygen Delivery Method High Flow Nasal Cannula Oxygen Flow Rate 3 Objective Labs Result Diagrams: 11/01/18 04:47 11/01/18 04:47 Labs: Laboratory Results - last 24 hr 11/01/18 17:48 ABG pH 7.36 ABG pCO2 58.6 H ABG pO2 145 H ABG HCO3 33 H ABG Total CO2 35 H ABG O2 Saturation 99 ABG Base Excess 8.0 H FiO2 0.52 Assessment & Plan Assessment & Plan narrative: Brief progress note: Patient seen and examined. Physical exam unchanged. Agree with assessment and plan by admitting physician. In addition titrated patient off of heated high-flow to supplemental oxygen and trilogy while sleeping. Quality VTE Deep Vein Thrombosis/Pulmonary Embolism Present on Admission: No
--- NOTE | 2018-11-01 15:23 | CM.DANOTE ---
DCP/Assessment: Reviewed chart. Patient is a 63yr old female admitted [facility] with mental status changes. PCP listed is Estefani Mcnamara. Primary payor 1)Med[employer]are 2)[employer]. Briefly met with patient explained CM/SW role. Patient currently requiring high flow 02 to maintain saturations. Patient has trilogy at [facility] that she uses at night. Patient reports that she hopes to return to [facility] when medically stable. Patient states that her decision maker is sister/Chacha ph# [phone]. Therapy evaluations currently pending. Unclear on whether or not patient at baseline. [employer] placed call to [facility] and they will bring trilogy to [facility] for use at night. P: Anticipate either return to [facility] or short SNF stay when medically stable. [facility] will need to be called for evaluation to return when appropriate (contact phone number below). CARMEN Maldonado Discharge Planning/Care Management CM Discharge Assessment Start: 11/01/18 15:10 Freq: Status: Active Protocol: Document 11/01/18 15:11 KJS (Rec: 11/01/18 15:23 KJS [id number]) Discharge Planning Assessment Assigned Bingo Worker CARMEN Maldonado Advance Directives? Yes: Polst Advance Directives on File Yes History Provided By Patient Medical Record Prior Living Arrangements Assisted Living Household Members none Type of transporation used prior to Relies on Others admit Facility Name Admitted From: [facility] Willing to Return to Facility? Yes: However needs more care than assisted living. Independent with ADL's No Is patient alert and oriented? Yes Needs Assistance With Bathing Grooming Meal Prep Toileting Managing Medications Home Chores / Shopping Comment Patient may need higher level of care at time of d/c. Patient currently resides at [facility] contact is Nereyda Arce ph# [phone]. Therapy evaluations pending. Discharge Plan Assisted Living Facility Transportation Arrangement Pending discharge disposition Additional Comment Patient currently has Trilogy at [facility]. They have been notified of hospitalization and plan to bring device to [facility] contact is Anu # . Inpatient Status as of 10/31/18 Whiteboard Updated in Patient Room with Yes name and ext. # of Bingo Worker Review Status In Process Next Review Type Continued Stay Review
[2018-11-01] MEDS: ATORVASTATIN 20 MG TABLET 40 MG PO (17:13)
[2018-11-01 18:15] LABS: HCO3 ABG 33 mmol/L (22-26); Oxygen Saturation ABG 99 % (95-100); PCO2 ABG 58.6 mmHg (35-45); PO2 ABG 145 mmHg (80-100); TCO2 ABG 35 mmol/L (21-31); pH ABG 7.36 (7.35-7.45)
[2018-11-01 18:17] LABS: Fractionated Inspired Oxygen 0.52
[2018-11-01] MEDS: SENNOSIDES 8.6 MG TABLET PO (20:08)
[2018-11-01] MEDS: MIRTAZAPINE 15 MG TABLET PO (20:11)
--- NOTE | 2018-11-01 21:42 | PC.NURSE ---
Been incontinent throughout the shift, was not able to call for assistance to get out of bed for the bathroom or commode
[2018-11-02] VITALS (8 sets, daily range): BP systolic 99–122; BP diastolic 39–69; PULSE 68–93; RESP 12–18; TEMP 36.3–37.1; O2SAT 91–96
[2018-11-02] MEDS: AZITHROMYCIN 500 MG in DEXTROSE 5% IN WATER 250 ML IV (01:19)
[2018-11-02] MEDS: CODEINE/ACETAMINOPHEN 30/300 TABLET 1 TAB PO ×2 (01:19→14:20)
--- NOTE | 2018-11-02 06:52 | PC.NURSE ---
NOC Shift: Pt now using home trilogy w/O2 bleed of 3L. Having difficulty with mask seal and mouth breathing, pt clearly needs a different type of mask for affectiveness. Pt remains forgetful, confused to where or why she is in the hospital and is now refusing to get OOB to commode to urinate. Pt will not call when she needs to go to the bathroom, and only calls after she has urinated in her brief. When asked why she cannot get OOB to use commode, pt only states, I don't know. Weaned to [place] 3L this AM off trilogy. VSS, SR tele.
[2018-11-02] MEDS: BACLOFEN 10 MG TABLET PO ×2 (08:54→14:19)
[2018-11-02] MEDS: ASPIRIN EC 81 MG TABLET PO (08:54)
[2018-11-02] MEDS: ENOXAPARIN 40 MG/0.4 ML SYRINGE SUBCUT (08:54)
[2018-11-02] MEDS: PREGABALIN 75 MG CAPSULE PO (08:55)
[2018-11-02] MEDS: PARoxetine 20 MG TABLET PO (08:55)
[2018-11-02] MEDS: LIDOCAINE PATCH 1 EACH ADH..PATCH TOP (08:56)
[2018-11-02] MEDS: SODIUM CHLORIDE 0.9% FLUSH 10 ML IV ×2 (08:57→14:12)
[2018-11-02] MEDS: BUSPIRONE 5 MG TABLET 10 MG PO ×2 (09:04→14:19)
--- NOTE | 2018-11-02 12:13 | OT.IP.TRT ---
Occupational Therapy Treatment Note M2 OT-IP Current Condition Start: 11/02/18 07:30 Freq: Status: Active Protocol: Document 11/01/18 13:19 PJM (Rec: 11/02/18 07:55 PJ [id number]) Occupational Therapy Current Condition Current Condition Evaluation Date 11/01/18 Treatment Diagnosis decr'd act mirna, self care, mobility w/dx of acute on chronic resp failure Diagnosis Onset Date 10/31/18 Post Operative Precautions Other Precautions fall risk, confusion M3 OT- IP Subjective and Pain Start: 11/02/18 07:30 Freq: Status: Active Protocol: Document 11/02/18 12:13 PJM (Rec: 11/02/18 15:37 PJ [id number]) OT- Subjective Occupational Therapy Visit Type Type Treatment Note Visit Start Time 11:50 Visit Stop Time 12:13 Total Visit Minutes 23 Notes Pt off high flow O2 today, now on 2.5 L O2. Per RN, pt will use 2-3 L O2 at all times when d/c'd. Occupational Therapy Visit Comments Patient Comments I need to go to the bathroom. Patient/Caregiver Goals to return to [facility] OT Pain Assessment Pain When Pain Assessed After Treatment Pain Present Pain Present Denied Pain M4 OT- IP ADL's Start: 11/02/18 07:30 Freq: Status: Active Protocol: Document 11/02/18 12:13 PJM (Rec: 11/02/18 15:37 PJ [id number]) OT [id number] General Evaluation Self-Feeding Ability Independent Comments OT Self-Feeding Comments after lunch tray set up to open containers due to B hand incoordination OT ADL-Toileting General Evaluation Toileting Ability Maximum Assistance Total Assistance Areas Needing Assistance Perform Perineal Hygiene Devices Toileting Assistive Devices Commode Comments OT Toileting Comments pt total assist with hygiene after bowel movement, pt assisting with pulling brief up in front today; 2 person assist with one person for pt balance with FWW, 2nd for hygiene M6 OT- IP Functional Cognition Start: 11/02/18 07:30 Freq: Status: Active Protocol: Document 11/02/18 12:13 PJM (Rec: 11/02/18 15:37 PJ [id number]) Cognitive Factors Limiting Selfcare Function Cognitive Ability Level of Alertness Alert Patient Orientation Name Month Date Year Place Attention Span Ability Capable of Focused Attention Ability to Follow Commands Able to Follow One Step Commands Cognitive Comments Cognitive Assessment Comments Pt more alert with faster speed of processing today. Affect brighter with pt smiling and initiating some conversation. M7 OT- IP Mobility and Balance Start: 11/02/18 07:30 Freq: Status: Active Protocol: Document 11/02/18 12:13 PJM (Rec: 11/02/18 15:37 PJ [id number]) OT- Bed Mobility Assessment Supine to Sit Supine to Sit Assist Minimal Assistance 1 Person Assistance Head of Bed Elevated Scooting Scooting to Edge of Bed Moderate Assistance 1 Person Assistance OT-Transfer Assessment Sit to and From Stand Sit to and from Stand Minimal Assistance 1 Person Assistance Transfers Transfer Ability Minimal Assistance 1-2 Person Assistance Technique Transfer Destination Bedside Commode Chair Transfer Technique Stand Step Pivot Devices Transfer Assistive Devices Gait Belt Front Wheeled Walker Comments Mobility Comments 2nd person assist for safety in case of buckling, but no buckling noted today. OT- Balance Assessment Sitting Balance and Reactions Static Sitting Balance Ability Good Standing Balance and Reactions Static Standing Balance Ability Good Dynamic Standing Balance Ability Fair M9 OT- IP Assessment and Plan Start: 11/02/18 07:30 Freq: Status: Active Protocol: Document 11/02/18 12:13 PJM (Rec: 11/02/18 15:37 PJ [id number]) OT Summary Assessment and Plan Summary OT Impairments Strength Balance Functional Cognition Functional Mobility Grooming Dressing Toileting Bathing Toilet Transfers Shower Transfers Progress Towards Goals Progressing Toward Goals Safe For Discharge Goals Met Assessment Summary Pt making daily improvements with mobility, and transfer skills from bed to chair appear to be at pt's baseline level of function. Pt's affect brighter with faster speed of processing today. Pt has decreased O2 needs now, off high flow and on 2.5 L with stable O2 sats this session. Per RN, pt to d/c back to [facility] today on daytime O2 at 2-3 L and Trilogy device at night. Frequency of Treatment Frequency Of Treatment Discharge Discharge Recommendations Other Discharge Recommendations return to [facility]
--- NOTE | 2018-11-02 13:13 | CM.DPC ---
Addendum entered by CARMEN Mathur 11/02/18 16:03: ADD: Per , pt stable for d/c today with oxygen. RT provided pt with Oxygen tank for d/c and [employer] to deliver more this evening. JENNIFER called Nereyda at [facility] and updated and they can transport pt at 1600. JENNIFER faxed signed med rec, scripts, and d/c summ to [facility] to review and updated RN and provided documents for d/c packet. JENNIFER checked in with pt who is agreeable. BF Original Note: DCP Cont: Per , pt could be medically stable for d/c back to [facility] today or tomorrow pending pt's Echo today and RT assessment for new home oxygen. Pt already set up with home Trilogy but not home continuous oxygen. Per PT, pt seems to be back to baseline from a mobility standpoint and return to [facility] recommended. JENNIFER called Nereyda at [facility] ([phone]) and updated on pt status and possible discharge. Nereyda met with pt bedside for assessment at 1200 and confirmed that they can accept pt back at d/c as long as likely new home oxygen rather than just trilogy is set up prior to d/c. Per , RT to assess to determine pt's oxygen needs at d/c and possible d/c home today. Plan: SW to follow after RT assessment for home oxygen and Echo complete for return to [facility] today or tomorrow. CARMEN Mathur
--- NOTE | 2018-11-02 14:05 | RT ---
Oximetry checked for discharge to [facility], [place], [place] Room air sats at rest, room air: 82% O2 sats at rest, 2 lpm nasal cannula: 95% O2 sats standing X 1 minute, on 2 lpm nasal cannula: 95%. Note: Pt is basically nonambulatory, and can just stand X 1min using a walker for assistance. Home O2 discharge recommendatins: 2 lpm nasal cannula at rest, with exertion and bled into Trilogy [facility]. Informed Dr. Mauro.
--- NOTE | 2018-11-02 15:33 | P.DS_ITS ---
History of Present Illness Date Patient Seen: 10/31/18 Chief complaint: Mental status change, high glucose Narrative: Written by Javid PARISI: Shirley Mason is a 63-year-old female patient with history significant for chronic respiratory failure with hypoxia and hypercapnia, hypoventilation, cardiomyopathy, CVA, posterior reversible encephalopathy syndrome, insomnia and tardive dyskinesia who presents to the ER from [facility] living with increasing shortness of breath and weakness. Coming from an assisted living minimal information is available other than her current med list. But per staff, the patient is functioning approximately at her baseline. The patient is a poor historian and unable to contribute much information. The patient does complain of fatigue that has progressed to weakness. She reports usually getting around with a walker but has difficulty now. The patient is to be on CPAP however the patient is believed to be noncompliant. Patient was hospitalized in July for similar circumstances. She denies recent cold or illness has no fever chills. She denies headache or dizziness, nasal congestion or sore throat. She has no complaints of chest pain or palpitations, shortness of breath does endorse chronic cough. She denies abdominal pain, nausea or vo miting, diarrhea or constipation. She acknowledges some urinary frequency but denies urgency burning or hematuria. In the ER the patient is found have a low-grade temperature at 99?, heart rate of 90, blood pressure of 102/50 respiratory rate of 22 with an oxygen saturation 89% on room air that improved to 93% on 3 L nasal cannula. Chest x-ray is taken which shows no infiltrates and no significant pulmonary vascular congestion. On laboratory analysis she has a normal white count 8.3 with hemoglobin 13 hematocrit of 40. Her platelets are 276. Electrolytes on chemistry panel are within normal range with a BUN of 15 and a creatinine of 0.6. Her nonfasting blood sugar is 152. Ketones are negative at 0.13. Lactate is 1.3 and procalcitonin is 0.05. BNP is 101. Arterial blood gas reveals a normal pH at 7.39, pCO2 of 62.2, PO2 low at 50 with a bicarb of 38 and base excess of 13 on room air. The patient is started on heated unified nasal cannula with improvement in oxygen saturation to 96%. The patient is admitted to the hospital for acute on chronic hypoxic hypercarbic respiratory failure. Discharge Providers Date of admission: 10/31/18 23:04 Discharge Date: 11/02/18 Primary care physician: ISAK Woodson Consults: 11/01/18 00:57 Consult to Physical Therapy Evaluate & Treat Comment: Weakness, debility, fall Physician Instructions: Evaluate and Treat 11/01/18 00:58 Consult to Occupational Therapy Evaluate & Treat Comment: Weakness, debility, fall Physician Instructions: Evaluate and treat Consult to Respiratory Therapy Evaluate & Treat Comment: acute hypoxic respiratory failure, COPD Physician Instructions: Evaluate and treat Consult to [employer] Routine Comment: Unable to care for self in asst living. Discharge provider: Meera Mauro DO Summary Discharge Diagnosis: 1. Acute on chronic hypoxemic and hypercarbic respiratory failure, present on admission. Active. 2. Cardiomyopathy with severe aortic stenosis, unclear type, chronic present on admission. Stable. 3. Anxiety, chronic, present on admission. Stable. 4. Insomnia, chronic, present on admission. Stable. 5. Back pain and muscle spasm, chronic, present on admission. Stable. Hospital Course: Shirley Mason is a 63-year-old female patient with history significant for chronic respiratory failure with hypoxia and hypercapnia, hypoventilation, cardiomyopathy, CVA, posterior reversible encephalopathy syndrome, insomnia and tardive dyskinesia who presents to the ER from [facility] with increasing shortness of breath and weakness. 1. Acute on chronic hypoxemic and hypercarbic respiratory failure, present on admission. Active. -Patient presented from assisted living facility for hypoxemia at rest on room air with O2 saturations of 82%. -ABG demonstrated: pH of 7.39, pCO2 o62.2, PO2 50, HCO3 38 saturation of 83% with a base excess of 13 on room air. -Patient denies symptoms than weakness and fatigue, white count is 8.3, procalcitonin 0.05, lactic acid is 1.3. BNP is 101. -Prior history of hypoxemia and hypercarbia likely secondary to OHS, GREGORIO, possible restrictive lung disease from scoliosis. The biggest issue seems to be that the patient is not compliant with continuous oxygen during the daytime and does not wear or takes off her trilogy with oxygen bled into while sleeping/napping. -Received azithromycin 500 mg x3 doses to treat pulmonary inflammation. -Patient underwent pulmonary function test on 10/25 2018 with findings and an FEV1 of 65% with a 40% improvement with a bronchodilator challenge consistent with COPD. -Continued respiratory therapy evaluation and treatment. Ordering home O2 at 2 liters/minute via nasal cannula continuously to treat her chronic respiratory failure and COPD. 2. Cardiomyopathy with severe aortic stenosis, unclear type, chronic present on admission. Stable. -Echocardiogram demonstrated some progression of severe aortic stenosis but still in severe range. -Continued home meds including aspirin 81 mg daily, atorvastatin 40 mg daily at bedtime, and metoprolol succinate 25 mg daily. 3. Anxiety, chronic, present on admission. Stable. -Continued paroxetine 20 mg daily, buspirone 10 mg 3 times daily, and mirtazapine 15 mg at bedtime. -Continued lorazepam 0.5 mg every 6 hours as needed -Patient does exhibit tardive dyskinesia unclear etiology but likely due to medications prescribed in the past. 4. Insomnia, chronic, present on admission. Stable. -Continued home medications including trazodone 50 mg at bedtime. 5. Back pain and muscle spasm, chronic, present on admission. Stable. -Continued baclofen 10 mg 3 times daily and Lyrica 75 mg twice daily. Status at Discharge Functional status at discharge: uses cane/walker Overall status at discharge: patient is back to baseline Exam Vital Signs (past 8 hours): - 11/02/18 08:32 11/02/18 12:27 Temperature 98.7 F Pulse Rate 93 H Respiratory Rate 14 Blood Pressure 102/39 L Pulse Oximetry 95 94 Fraction of Inspired Oxygen 38 Oxygen Delivery Method Nasal Cannula Oxygen Flow Rate 3 Narrative Exam Narrative: General: Middle-aged female sitting in bed and in no acute distress, well- developed, well-nourished, appropriately interactive. HEENT: Normocephalic, atraumatic. External ears without defect. Pupils equal, round, and reactive to light. Anicteric sclerae, moist conjunctivae, and no lid lag. Oropharynx free of erythema and cobble stoning with moist mucosa. Neck: Supple with full range of motion. No jugular venous distension. No bruits. No lymphadenopathy or thyromegaly. Cardiovascular: Regular rate and rhythm without murmurs, rubs, or gallops appreciated Pulmonary: Diminished lung sounds throughout but clear to auscultation bilaterally with scattered crackles. No wheezes or rhonchi. Normal respiratory effort with no use of accessory muscles. Abdomen: Soft, bowel sounds present, nontender, nondistended. No hepatosplenomegaly or masses appreciated. Extremities: No clubbing, cyanosis, or edema. Generalized weakness of bilateral lower extremities +4/5. Skin: Normal temperature, turgor, and texture; no rash, ulcers, or subcutaneous nodules appreciated. Neurological: Cranial nerves grossly intact. Psychiatric: Normal mood and flat affect. Alert and oriented to person, place, and time. Mild cognitive impairment. Objective Labs Result Diagrams: 11/01/18 04:47 11/01/18 04:47 Labs: Laboratory Results - last 24 hr 11/01/18 17:48 ABG pH 7.36 ABG pCO2 58.6 H ABG pO2 145 H ABG HCO3 33 H ABG Total CO2 35 H ABG O2 Saturation 99 ABG Base Excess 8.0 H FiO2 0.52 Discharge Plan Discharge Plan Patient Disposition: Assisted Living Other facility: [facility] Transportation: Facility vehicle The receiving facility has agreed to accept transfer and provide medical treatment.: Yes Discharge Med Rec/Prescriptions Prescriptions: New azithromycin 500 mg tablet 500 mg PO DAILY 1 Days Qty: 1 RF: 0 Continued paroxetine HCl 20 mg Tablet 20 mg PO DAILY RF: 0 Aspercreme (lidocaine) 4 % Adhesive Patch,Medicated 1 patch topical DAILY RF: 0 trazodone 50 mg tablet 50 mg PO BEDTIME RF: 0 baclofen 10 mg tablet 10 mg PO TID RF: 0 Biofreeze (menthol) 4 % Gel 1 applic topical BID RF: 0 hydrocortisone 2.5 % cream 1 applic topical BID RF: 0 mirtazapine 15 mg tablet 15 mg PO BEDTIME RF: 0 Saccharomyces boulardii 250 mg capsule 250 mg PO BID RF: 0 buspirone 10 mg tablet 10 mg PO TID RF: 0 acetaminophen-codeine 300-30 mg Tablet 1 tab PO TID PRN (Reason: pain) Qty: 20 RF: 0 lorazepam 0.5 mg Tablet 0.5 mg PO Q6H PRN (Reason: Anxiety) Qty: 20 RF: 0 multivitamin Tablet 1 tab PO DAILY RF: 0 atorvastatin 40 mg Tablet 40 mg PO QPM RF: 0 sennosides [senna] 8.6 mg Tablet 8.6 mg PO BEDTIME RF: 0 acetaminophen 325 mg Tablet 650 mg PO Q6H PRN (Reason: pain or fever) RF: 0 aspirin 81 mg Tablet,Delayed Release (Dr/Ec) 1 tab PO DAILY RF: 0 magnesium hydroxide [Milk of Magnesia] 400 mg/5 mL Suspension 30 ml PO DAILY PRN (Reason: Constipation) RF: 0 nystatin 100,000 unit/gram Cream 1 applic TOPICAL BID RF: 0 Florastor 250 mg Capsule 250 mg PO BID RF: 0 Lyrica 75 mg Capsule 75 mg PO BID RF: 0 Follow up/Referrals: Estefani Mcnamara ARNP [Primary Care Provider] - Discharge Orders: Discharge (Order); Ordered 11/02/18 Ordered By: Meera Mauro Discharge Health Status Brief summary of current health status: 63-year-old female patient with a past medical history significant for chronic respiratory failure with hypoxemia and hypercapnia, hypoventilation, cardiomyopathy, CVA, posterior reversible encephalopathy syndrome, insomnia and tardive dyskinesia who presented with increasing shortness of breath and chronic generalized weakness. Patient recovered quickly with oxygen and trilogy. Received azithromycin 500 mg for total of 3 doses to finish tomorrow 11/03/2018 for anti-inflammatory purposes. Patient needs to be compliant with trilogy and use when sleeping or napping. She also needs to be on oxygen continuously throughout the daytime at 2 L and bled into her trilogy while sleeping. The patient would benefit from continued physical and occupational therapy at the assisted living facility. Multidrug resistant organism: No MDRO Provider Discharge Instructions Diet: Low-fat, Low-sodium and Low-cholesterol Activity: Activity as tolerated with FWW and PT/OT Oxygen: 2L continuous and bled into Trilogy. Triology at all times while sleeping. [facility] Rehab type: Physical therapy and Occupational therapy Discharge Data Primary Care Provider: Estefani Mcnamara Attending Provider: Javid Calle Admit Date/Time: 10/31/18 23:04 Quality VTE Deep Vein Thrombosis/Pulmonary Embolism Present on Admission: No
--- NOTE | 2018-11-02 17:15 | PC.NURSE ---
1600 - Two person assist with FWW to bs. Discussed pending discharge with pt. Pt asking what town am I in? Reorients easily. IV to left wrist D/C'd. Pt assisted to chair to await [facility] care provider. At time of discharge pt concerned with pain medication order. Call placed to Dr. Mauro. Message left. Reviewed home medication. Notified caregiver that any change requested by provider would be relayed to facility. Care provider notified pt that follow can also be down with Estefani PARISI. 1620 - Pt discharged to [facility]. RX given to care provider. Return call from Dr. Mauro that she had discussed with pt and pharmacy medication equivalents with Tylenol 3 and vicodin, decided on no change at this time.
== END 2018-11-02 16:20 | DRG 189 ==
LOC: ED 23:01 → ICU 11-01 07:00
PROVIDERS: Emergency Medicine; Internal Medicine; Admitting Provider Nurse Practitioner Adult Health; Emergency Provider Emergency Medicine; PCP Registered Nurse; Visit Provider Nurse Practitioner Adult Health
DX: J96.22 Acute and chronic respiratory failure with hypercapnia (principal); I42.9 Cardiomyopathy, unspecified; J96.21 Acute and chronic respiratory failure with hypoxia; I35.0 Nonrheumatic aortic (valve) stenosis; F41.9 Anxiety disorder, unspecified; E11.9 Type 2 diabetes mellitus without complications; G47.00 Insomnia, unspecified; M54.9 Dorsalgia, unspecified; M62.830 Muscle spasm of back; Z91.19 Patient's noncompliance with other medical treatment and regimen; J44.9 Chronic obstructive pulmonary disease, unspecified
CPT/HCPCS: 36415; 36591; 36600; 71045; 80048; 80053; 82009; 82805; 82962; 83605; 83880; 84145; 85025; 87040; 87797; 93005; 93010; 93306; 94618; 94760; 94762; 97161; 97165; 97535; 99284; J1650; Q9957

== ENCOUNTER → 2019-03-04 16:15 | Outpatient (ROUT) | payer MEDICARE, OTHER, SELFPAY ==
[2018-07-19 11:09] VITALS: PULSE 67; RESP 21; O2SAT 93
[2018-11-01 00:30] VITALS: BMI 31.7
[2019-03-04 16:17] LABS: Bacteria Urine None Seen; RBC Urine None Seen (0-5/HPF)
[2019-03-04 16:38] LABS: Appearance Urine UA CLEAR; Bilirubin Urine UA NEGATIVE (NEGATIVE); Color Urine UA YELLOW; Glucose Urine UA NEGATIVE (Negative); Ketones Urine UA NEGATIVE (NEGATIVE); Leukocyte Esterase Urine UA NEGATIVE (NEGATIVE); Nitrite Urine UA NEGATIVE (Negative); Occult Blood Urine UA NEGATIVE (Negative); Protein Urine UA NEGATIVE (Negative); Specific Gravity Urine UA 1.015 (1.000-1.035); Urobilinogen Urine UA 0.2 E.U./dL (0.2)
[2019-03-04 17:08] LABS: Culture Indicated Urine Cult Not Indicated; WBC Urine 0-1/HPF (0-5/HPF); pH Urine UA 8.5 (4.5-8.0)
== END ==
PROVIDERS: PCP Registered Nurse; Visit Provider Registered Nurse
DX: R35.0 Frequency of micturition (principal)
CPT/HCPCS: 81001

== ENCOUNTER 2019-03-24 08:43 | Emergency (ER) | payer MEDICARE, OTHER, SELFPAY ==
[2018-07-19 11:09] VITALS: PULSE 67; RESP 21; O2SAT 93
[2018-11-01 00:30] VITALS: BMI 31.7
[2019-03-24] VITALS (11 sets, daily range): BP systolic 115–139; BP diastolic 65–92; PULSE 81–104; RESP 10–25; TEMP 37.1; O2SAT 90–100; BMI 66.2
--- NOTE | 2019-03-24 08:46 | DI.RAD.S_ITS ---
PROCEDURE: XR CHEST 1V INDICATIONS: shortness of breath TECHNIQUE: One view of the chest was acquired. COMPARISON: [facility], CR, XR CHEST 2V, 01/20/2018, 16:23. [facility], CR, XR CHEST 1V, 02/03/2018, 2:32. [facility], CR, XR CHEST 1V, 03/14/2018, 11:36. [facility], CR, XR CHEST 1V, 07/18/2018, 11:18. [facility], CR, XR CHEST 1V, 10/31/2018, 20:40. FINDINGS: Surgical changes and devices: Broken lumbar spine fusion casandra since 01/20/2018. Lungs and pleura: Mild interstitial prominence suggesting mild pulmonary congestion. No pleural effusions or pneumothorax. Mediastinum: Mediastinal contours appear normal. Heart size is normal. Bones and chest wall: No suspicious bony lesions. Overlying soft tissues appear unremarkable. Severe shoulder joint degeneration bilaterally. IMPRESSION: 1. Mild interstitial prominence suggesting mild pulmonary congestion. 2. Broken lumbar spine fusion casandra since 01/20/2018. Dictated by: Jero Maza M.D. on 03/24/2019 at 9:32 Approved by: Jero Maza M.D. on 03/24/2019 at 9:35
--- NOTE | 2019-03-24 08:49 | ED_ITS ---
HPI - SOB/Dyspnea General Chief Complaint: Shortness of Breath/Dyspnea Stated Complaint: Low Oxygen Time Seen by Provider: 03/24/19 08:43 Source: patient and EMS Mode of arrival: EMS Limitations: no limitations History of Present Illness HPI Narrative: 64-year-old female nonsmoker with history of acute on chronic re spiratory failure with hypoxia and hypercapnia presents from [facility] assisted living by EMS for evaluation of low oxygen saturations. The patient was found on her Trilogy this morning with saturations in the 30s, she was placed on nasal cannula which got her up to the 80s, EMS was activated and they found her with low oxygen saturation but in no significant distress. She had small amount of p ain while hypoxic but that resolved with return to normal saturations. Her primary care provider had called ahead to let us know that there was a recent change in her pain medications and 6 days ago she was increased from Tylenol codeine to [place]. This morning at about 4:30 a.m. she was given not only the [place] but also Ativan. EMS gave Narcan 0.2 mg IV and the patient became much more alert, breathing return to normal as did oxygen saturations. Related Data Home Medications Medication Instructions Recorded Confirmed Florastor 250 mg PO BID 03/14/18 03/24/19 acetaminophen 650 mg PO TID 03/14/18 03/24/19 aspirin 1 tab PO DAILY 03/14/18 03/24/19 atorvastatin 40 mg PO QPM 03/14/18 03/24/19 magnesium hydroxide [Milk of 30 ml PO DAILY PRN 03/14/18 03/24/19 Magnesia] nystatin 1 applic TOPICAL BID 03/14/18 03/24/19 pregabalin [Lyrica] 75 mg PO BID 03/14/18 03/24/19 sennosides [senna] 17.2 mg PO BEDTIME 03/14/18 03/24/19 paroxetine HCl 20 mg PO DAILY 07/18/18 03/24/19 Aspercreme (lidocaine) 1 patch TOPICAL DAILY 10/31/18 03/24/19 Biofreeze (menthol) 1 applic TOPICAL BID 10/31/18 03/24/19 buspirone 10 mg PO TID 10/31/18 03/24/19 hydrocortisone 1 applic TOPICAL BID 10/31/18 03/24/19 mirtazapine 15 mg PO BEDTIME 10/31/18 03/24/19 trazodone 50 mg PO BEDTIME 10/31/18 03/24/19 hydrocodone-acetaminophen [[place]] 1 - 2 tab PO Q4H PRN 03/24/19 03/24/19 tizanidine 4 mg PO Q6H PRN 03/24/19 03/24/19 Previous Rx's Medication Instructions Recorded lorazepam 0.5 mg PO Q6H PRN #20 tab 11/02/18 Allergies Allergy/AdvReac Type Severity Reaction Status Date / Time bee venom protein (honey bee) Allergy unknown Verified 07/18/18 18:50 sulfabenzamide Allergy Verified 03/14/18 10:50 Review of Systems Constitutional Constitutional: Denies chills, Reports fatigue, Denies fever(s), Denies frequent falls, Denies lethargy and Denies weakness Eyes Eyes: Denies change in vision, Denies eye discharge, Denies irritation and Denies loss of vision ENT Ears, Nose, Mouth, and Throat: Denies change in voice, Denies dizziness, Denies neck pain, Denies sore throat and Denies throat swelling Cardiovascular Cardiovascular: Denies chest pain, Denies irregular heart rhythm, Denies lightheadedness, Denies palpitations, Denies dyspnea, Denies dyspnea on exertion and Denies orthopnea Respiratory Respiratory: Denies cough, Denies dyspnea, Denies dyspnea on exertion and Denies wheezing Gastrointestinal Gastrointestinal: Denies abdominal pain, Denies change in bowel habits, Denies diarrhea, Denies nausea and Denies vomiting Genitourinary Genitourinary: Denies hematuria, Denies flank pain, Denies urinary incontinence and Denies urinary urgency Musculoskeletal Musculoskeletal: Denies back pain, Denies muscle weakness, Denies neck pain, Denies numbness and Denies tingling Integumentary/Breasts Skin/Breast: Denies pruritus, Denies erythema, Denies rash and Denies wounds Neurologic Neurologic: Denies behavioral changes, Denies confusion, Denies dizziness, Denies frequent falls, Denies loss of vision, Denies numbness, Denies tingling and Denies weakness Psychiatric Psychiatric: Denies anxiety, Denies behavioral changes, Denies confusion, Denies depression, Denies homicidal ideation and Denies suicidal ideation Endocrine Endocrine: Reports fatigue, Denies flushing and Denies palpitations Hematologic/Lymphatic Hematologic/Lymphatic: Denies easy bruising Allergic/Immunologic Allergic/Immunologic: Denies urticaria, Denies throat swelling and Denies wheezing Exam Narrative Exam Narrative: GENERAL: [64] year old patient appears older than stated age. Chronically ill, in obvious mild distress. HEAD: Atraumatic. Normocephalic. EYES: Pupils equal round and reactive. Extraocular motions intact. No scleral icterus. No injection or drainage. ENT: Nose without bleeding, purulent drainage. Throat without erythema, tonsillar hypertrophy or exudate. Airway patent. NECK: Trachea midline. Non tender CARDIOVASCULAR: Regular rate and rhythm without murmurs, gallops, or rubs. RESPIRATORY: Clear to auscultation. Breath sounds equal bilaterally. No wheezes, rales, or rhonchi. GASTROINTESTINAL: Abdomen soft, non-tender, nondistended. EXTREMITIES: No edema or joint tenderness. BACK: Nontender without deformity or crepitance. No flank tenderness. NEURO: AOx3. SKIN: No rash or erythema of visible areas Initial Vital Signs Initial Vital Signs: Vital Signs Temperature 98.7 F 03/24/19 08:45 Pulse Rate 104 H 03/24/19 08:45 Respiratory Rate 25 H 03/24/19 08:45 Blood Pressure 139/78 03/24/19 08:45 Pulse Oximetry 90 L 03/24/19 08:45 Course Course Course Narrative: patient is at her baseline, and has been for quite some time. She is repeatedly requesting pain meds, but we've discussed that this is why she was here today in the first place. She wants to talk about going back on hospice and removing her DNR with her PCP upon return. Multiple discussions with PCP and we are in agreement Orders Ordered: ED Orders 03/24/19 10:55 Urine Culture Stat Urine Microscopic Stat 03/24/19 12:11 ABG [Arterial Blood Gas] Stat Vital Signs Vital signs: Vital Signs - 8 hr 03/24/19 12:05 03/24/19 12:20 03/24/19 13:00 Pulse Rate 87 90 Respiratory Rate 14 18 Blood Pressure [Left Arm] 118/67 136/92 H Pulse Oximetry 95 96 96 03/24/19 14:00 Pulse Rate 92 H Respiratory Rate 22 Blood Pressure [Left Arm] 120/69 Pulse Oximetry 97 MDM - SOB/Dyspnea Lab Data Result diagrams: 03/24/19 10:22 03/24/19 09:55 Labs: Lab Results 03/24/19 03/24/19 03/24/19 Range/Units 09:30 09:55 09:55 WBC (4.5-11.0) X10^3/uL RBC (4.0-5.2) X10^6/uL Hgb (12.0-16.0) g/dL Hct (36-46) % MCV (80-100) fL MCH (26-34) PG MCHC (30-36) % RDW (11.6-14.8) % Plt Count (150-400) X10^3/uL Neut % (Auto) (50-75) % Lymph % (Auto) (25-40) % [place] % (Auto) (3-14) % Eos % (Auto) (2-4) % Baso % (Auto) (0-2) % Neut # (Auto) (1193-3149) /uL Lymph # (Auto) (1685-0113) /uL [place] # (Auto) (0-900) /uL Eos # (Auto) (0-450) /uL Baso # (Auto) (0-100) /uL ABG pH 7.27 L* (7.35-7.45) ABG pCO2 77.3 H* (35-45) mmHg ABG pO2 80 (80-100) mmHg ABG HCO3 35 H (22-26) mmol/L ABG Total CO2 38 H (21-31) mmol/L ABG O2 Saturation 93 L (95-100) % ABG Base Excess 8.0 H (-2-2) mmol/L FiO2 44 Sodium 143 (137-145) mmol/L Potassium 4.8 (3.4-5.1) mmol/L Chloride 98 (98-107) mmol/L Carbon Dioxide 33 H (22-32) mmol/L BUN 13 (7-17) mg/dL Creatinine 0.70 (0.52-1.04) mg/dL Estimated GFR > 60.0 (>60) mL/min BUN/Creatinine Ratio 18.6 (6-22) Glucose 180 H (80-110) mg/dL Calcium 9.5 (8.4-10.2) mg/dL Magnesium 2.2 (1.6-2.3) mg/dL Total Creatine Kinase 35 (30-135) U/L CK-MB (CK-2) TNP CK-MB (CK-2) Rel Index TNP Troponin I 0.027 (0.01-0.034) ng/mL Procalcitonin < 0.05 (<0.5) ng/mL Urine RBC (0-5/HPF) Urine WBC (0-5/HPF) Ur Squamous Epith Cells (0-5/HPF) Urine Bacteria (None) Hyaline Casts (None) Ur Culture Indicated? 03/24/19 03/24/19 03/24/19 Range/Units 10:22 10:55 12:11 WBC 14.6 H (4.5-11.0) X10^3/uL RBC 4.29 (4.0-5.2) X10^6/uL Hgb 13.5 (12.0-16.0) g/dL Hct 42.0 (36-46) % MCV 97.8 (80-100) fL MCH 31.5 (26-34) PG MCHC 32.2 (30-36) % RDW 13.8 (11.6-14.8) % Plt Count 260 (150-400) X10^3/uL Neut % (Auto) 85.7 H (50-75) % Lymph % (Auto) 7.2 L (25-40) % [place] % (Auto) 6.7 (3-14) % Eos % (Auto) 0.2 L (2-4) % Baso % (Auto) 0.2 (0-2) % Neut # (Auto) 09190 H (9196-5939) /uL Lymph # (Auto) 1000 L (2692-6218) /uL [place] # (Auto) 1000 H (0-900) /uL Eos # (Auto) 0 (0-450) /uL Baso # (Auto) 0 (0-100) /uL ABG pH 7.30 L (7.35-7.45) ABG pCO2 77.0 H* (35-45) mmHg ABG pO2 93 (80-100) mmHg ABG HCO3 38 H (22-26) mmol/L ABG Total CO2 40 H (21-31) mmol/L ABG O2 Saturation 96 (95-100) % ABG Base Excess 11.0 H (-2-2) mmol/L FiO2 30 Sodium (137-145) mmol/L Potassium (3.4-5.1) mmol/L Chloride (98-107) mmol/L Carbon Dioxide (22-32) mmol/L BUN (7-17) mg/dL Creatinine (0.52-1.04) mg/dL Estimated GFR (>60) mL/min BUN/Creatinine Ratio (6-22) Glucose (80-110) mg/dL Calcium (8.4-10.2) mg/dL Magnesium (1.6-2.3) mg/dL Total Creatine Kinase (30-135) U/L CK-MB (CK-2) CK-MB (CK-2) Rel Index Troponin I (0.01-0.034) ng/mL Procalcitonin (<0.5) ng/mL Urine RBC 0-1/hpf (0-5/HPF) Urine WBC 10-30/hpf H (0-5/HPF) Ur Squamous Epith Cells 1-5 /hpf (0-5/HPF) Urine Bacteria Moderate (10-30) H (None) Hyaline Casts 5-10/lpf (None) Ur Culture Indicated? Specimen cultured Urine Dip Bedside Urine Glucose Negative Bedside Urine Bilirubin - Negative Bedside Urine Ketone - Negative Urine Specific [place] 1.020 Bedside Urine Occult Blood - Negative Bedside Urine pH 5.5 Bedside Urine Protein + 30 Bedside Urine Urobilinogen - Negative Bedside Urine Nitrite - Negative Bedside Urine Leukocytes + 70 Esterase Discharge Plan Departure Patient Disposition: Home Clinical Impression: Opioid overdose Qualifiers: Encounter type: initial encounter Injury intent: accidental or unintentional Qualified Code(s): T40.2X1A - Poisoning by other opioids, accidental (uni ntentional), initial encounter Discharge Date/Time: 03/24/19 14:29 Instructions: DI for Drug Overdose in Adults Activity Restrictions/Additional Instructions: *You have been diagnosed with [chronic pain, accidental polysubstance overdose] *What to do: *Follow up with your primary care provider in 2-3 days, call for an appointment. Let them know you were seen in the Emergency Department and that we ask that you be seen in follow up *Return to ER if you should have any new, worsening or concerning symptoms Prescriptions: No Action paroxetine HCl 20 mg Tablet 20 mg PO DAILY RF: 0 Aspercreme (lidocaine) 4 % Adhesive Patch,Medicated 1 patch topical DAILY RF: 0 trazodone 50 mg tablet 50 mg PO BEDTIME RF: 0 Biofreeze (menthol) 4 % Gel 1 applic topical BID RF: 0 hydrocortisone 2.5 % cream 1 applic topical BID RF: 0 mirtazapine 15 mg tablet 15 mg PO BEDTIME RF: 0 buspirone 10 mg tablet 10 mg PO TID RF: 0 lorazepam 0.5 mg Tablet 0.5 mg PO Q6H PRN (Reason: Anxiety) Qty: 20 RF: 0 tizanidine 4 mg tablet 4 mg PO Q6H PRN (Reason: Muscle Spasm) RF: 0 hydrocodone-acetaminophen [[place]] 5-325 mg Tablet 1 - 2 tab PO Q4H PRN (Reason: PAIN) RF: 0 atorvastatin 40 mg Tablet 40 mg PO QPM RF: 0 sennosides [senna] 8.6 mg Tablet 17.2 mg PO BEDTIME RF: 0 acetaminophen 325 mg Tablet 650 mg PO TID RF: 0 aspirin 81 mg Tablet,Delayed Release (Dr/Ec) 1 tab PO DAILY RF: 0 magnesium hydroxide [Milk of Magnesia] 400 mg/5 mL Suspension 30 ml PO DAILY PRN (Reason: Constipation) RF: 0 nystatin 100,000 unit/gram Cream 1 applic TOPICAL BID RF: 0 Florastor 250 mg Capsule 250 mg PO BID RF: 0 pregabalin [Lyrica] 75 mg Capsule 75 mg PO BID RF: 0 Referrals: Estefani Mcnamara ARNP [Primary Care Provider] -
[2019-03-24 10:02] LABS: HCO3 ABG 35 mmol/L (22-26); PCO2 ABG 77.3 mmHg (35-45); PO2 ABG 80 mmHg (80-100); TCO2 ABG 38 mmol/L (21-31); pH ABG 7.27 (7.35-7.45)
[2019-03-24 10:03] LABS: Oxygen Saturation ABG 93 % (95-100)
[2019-03-24 10:04] LABS: Fractionated Inspired Oxygen 44
[2019-03-24 10:23] LABS: BUN Creatinine Ratio 18.6 (6-22); Blood Urea Nitrogen 13 mg/dL (7-17); Calcium 9.5 mg/dL (8.4-10.2); Carbon Dioxide 33 mmol/L (22-32); Chloride 98 mmol/L (98-107); Creatine Kinase 35 U/L (30-135); Estimated Glomerular Filt Rate > 60.0 mL/min (>60); Glucose 180 mg/dL (80-110); HEMOLYSIS 34 (0-50); Magnesium 2.2 mg/dL (1.6-2.3); Potassium 4.8 mmol/L (3.4-5.1); Sodium 143 mmol/L (137-145)
[2019-03-24 10:33] LABS: Troponin I 0.027 ng/mL (0.01-0.034)
[2019-03-24 10:38] LABS: Add Manual Diff / Slide Review NO; Basophils Absolute Auto 0 /uL (0-100); Basophils Percent Auto 0.2 % (0-2); Eosinophils Absolute Auto 0 /uL (0-450); Eosinophils Percent Auto 0.2 % (2-4); Hemoglobin 13.5 g/dL (12.0-16.0); Lymphocytes Absolute Auto 1000 /uL (1100-4500); Lymphocytes Percent Auto 7.2 % (25-40); Mean Corpuscular HGB Conc 32.2 % (30-36); Mean Corpuscular Hemoglobin 31.5 PG (26-34); Mean Corpuscular Volume 97.8 fL (80-100); Monocytes Absolute Auto 1000 /uL (0-900); Monocytes Percent Auto 6.7 % (3-14); Neutrophils Absolute Auto 12500 /uL (1500-7000); Neutrophils Percent Auto 85.7 % (50-75); Platelet Count 260 X10^3/uL (150-400); Red Blood Cell Count 4.29 X10^6/uL (4.0-5.2); Red Cell Distribution Width 13.8 % (11.6-14.8); White Blood Cell Count 14.6 X10^3/uL (4.5-11.0)
[2019-03-24 10:41] LABS: Procalcitonin < 0.05 ng/mL (<0.5)
[2019-03-24 11:28] LABS: RBC Urine 0-1/HPF (0-5/HPF); Squamous Epithelial Cell Urine 1-5 /HPF (0-5/HPF); WBC Urine 10-30/HPF (0-5/HPF)
[2019-03-24 11:29] LABS: Bacteria Urine Moderate (10-30); Culture Indicated Urine Specimen Cultured; Hyaline Casts Urine 5-10/LPF
[2019-03-24 12:29] LABS: Fractionated Inspired Oxygen 30; HCO3 ABG 38 mmol/L (22-26); Oxygen Saturation ABG 96 % (95-100); PO2 ABG 93 mmHg (80-100); TCO2 ABG 40 mmol/L (21-31)
== END 2019-03-24 14:29 | disposition home or self-care (01) ==
PROVIDERS: Emergency Provider Emergency Medicine; PCP Registered Nurse
DX: T40.2X1A Poisoning by other opioids, accidental (unintentional), initial encounter (principal)
CPT/HCPCS: 36415; 36600; 71045; 80048; 81003; 81015; 82550; 82805; 83735; 84145; 84484; 85025; 87086; 93005; 99284; 99285

== ENCOUNTER → 2019-06-23 08:08 | Outpatient (ROUT) | payer MEDICARE, OTHER, SELFPAY ==
[2018-11-01 00:30] VITALS: BMI 31.7
[2019-03-24 11:33] VITALS: PULSE 81; RESP 16; O2SAT 100
[2019-06-23 08:52] LABS: Add Manual Diff / Slide Review NO; Basophils Absolute Auto 0 /uL (0-100); Basophils Percent Auto 0.5 % (0-2); Eosinophils Absolute Auto 100 /uL (0-450); Eosinophils Percent Auto 1.9 % (2-4); Hematocrit 34.4 % (36-46); Hemoglobin 11.4 g/dL (12.0-16.0); Lymphocytes Absolute Auto 1400 /uL (1100-4500); Lymphocytes Percent Auto 18.1 % (25-40); Mean Corpuscular HGB Conc 33.2 % (30-36); Mean Corpuscular Volume 93.2 fL (80-100); Monocytes Absolute Auto 600 /uL (0-900); Monocytes Percent Auto 7.5 % (3-14); Neutrophils Absolute Auto 5600 /uL (1500-7000); Platelet Count 231 X10^3/uL (150-400); Red Blood Cell Count 3.69 X10^6/uL (4.0-5.2); White Blood Cell Count 7.8 X10^3/uL (4.5-11.0)
[2019-06-23 09:07] LABS: Blood Urea Nitrogen 12 mg/dL (7-17); Calcium 8.6 mg/dL (8.4-10.2); Carbon Dioxide 39 mmol/L (22-32); Chloride 98 mmol/L (98-107); Estimated Glomerular Filt Rate > 60.0 mL/min (>60); Glucose 121 mg/dL (80-110); HEMOLYSIS 20 (0-50); Potassium 4.4 mmol/L (3.4-5.1); Sodium 140 mmol/L (137-145)
== END ==
PROVIDERS: PCP Registered Nurse; Visit Provider Nurse Practitioner Family
DX: R10.9 Unspecified abdominal pain (principal); J96.90 Respiratory failure, unspecified, unspecified whether with hypoxia or hypercapnia
CPT/HCPCS: 36415; 80048; 85025

== ENCOUNTER 2019-08-07 10:00 | Emergency (ER) | payer MEDICARE, OTHER, SELFPAY ==
[2018-11-01 00:30] VITALS: BMI 31.7
[2019-03-24 11:33] VITALS: PULSE 81; RESP 16; O2SAT 100
[2019-08-07 10:07] VITALS: BP 136/74; PULSE 82; RESP 13; TEMP 36.8; O2SAT 94
[2019-08-07 10:11] VITALS: BP 136/74; PULSE 82; RESP 18; O2SAT 95
--- NOTE | 2019-08-07 10:21 | ED_ITS ---
HPI - SOB/Dyspnea General Chief Complaint: Shortness of Breath/Dyspnea Stated Complaint: Shortness of Breath Time Seen by Provider: 08/07/19 10:10 Source: patient and EMS Mode of arrival: Ambulatory Limitations: no limitations History of Present Illness HPI Narrative: This is a 64-year-old female who comes in for low O2 saturation in her care facility. She was 70%. EMS states that when they removed her from her truly imaging machine and placed her on 2 L nasal cannula she came up to 94% range. Patient states that she is feeling a little short of breath this she states she is normally on 2 L of O2 for 24 hours a day. She states she has not required any increase. She denies any chest pain or pressure. She denies any fevers, no cold cough or congestion. She denies any chest congestion. She denies any nausea or vomiting. No issues with bowel movements or urination. No swelling in her lower extremities. She states she does feel little bit sleepy. She states that she does have lung disease, she has known cardiomyopathy with chronic hypercarbia. Has required Narcan in the past secondary to acute opiate overdose. And is on multiple sedating medications. She states she has a prior history of back surgery. Denies any allergies. Denies any tobacco, rare alcohol and no illicit. Her provider is Estefani Rawls she resides at a nursing facility. Related Data Home Medications Medication Instructions Recorded Confirmed acetaminophen 650 mg PO TID 03/14/18 08/07/19 aspirin 1 tab PO DAILY 03/14/18 08/07/19 atorvastatin 40 mg PO QPM 03/14/18 08/07/19 magnesium hydroxide [Milk of 30 ml PO DAILY PRN 03/14/18 08/07/19 Magnesia] nystatin 1 applic TOPICAL BID 03/14/18 08/07/19 pregabalin [Lyrica] 75 mg PO BID 03/14/18 08/07/19 sennosides [senna] 8.6 mg PO BID 03/14/18 08/07/19 paroxetine HCl 20 mg PO DAILY 07/18/18 08/07/19 Biofreeze (menthol) 1 applic TOPICAL BID 10/31/18 08/07/19 buspirone 10 mg PO TID 10/31/18 08/07/19 hydrocortisone 1 applic TOPICAL BID 10/31/18 08/07/19 lidocaine [Aspercreme (lidocaine)] 1 patch TOPICAL DAILY 10/31/18 08/07/19 mirtazapine 7.5 mg PO BEDTIME 10/31/18 08/07/19 trazodone 50 mg PO BEDTIME 10/31/18 08/07/19 hydrocodone-acetaminophen [Greeley] 1 tab PO Q4H PRN 03/24/19 08/07/19 tizanidine 4 mg PO Q6H PRN 03/24/19 08/07/19 loperamide 4 mg PO PRN PRN 08/07/19 08/07/19 witch sandra [Preparation H (Witch 20 % TOPICAL DIRECTED 08/07/19 08/07/19 Sandra)] Previous Rx's Medication Instructions Recorded lorazepam 0.5 mg PO Q6H PRN #20 tab 11/02/18 Allergies Allergy/AdvReac Type Severity Reaction Status Date / Time bee venom protein (honey bee) Allergy unknown Verified 07/18/18 18:50 Sulfa (Sulfonamide Allergy Verified 08/07/19 10:11 Antibiotics) sulfabenzamide Allergy Verified 08/07/19 10:11 Review of Systems Review of Systems ROS Unobtainable: All systems reviewed & are unremarkable except as noted in HPI and below Patient History Medical History Anxiety (Acute) Arthritis of knee (Chronic) Back pain (Chronic) Cardiomyopathy (Acute) Chronic respiratory failure with hypoxia and hypercapnia (Acute) COPD (chronic obstructive pulmonary disease) (Acute) Diabetes (Acute) Fusion of lumbar spine (Acute) Hypoventilation (Acute) Insomnia (Acute) Lacunar infarction (Acute) Posterior reversible encephalopathy syndrome (Acute) Scoliosis (Chronic) Tardive dyskinesia (Acute) Surgical History History of spinal surgery (Acute) Social History household members: none housing: assisted living facility Smoking Status: Never smoker alcohol intake: former Smoking Status: Never smoker alcohol intake frequency: other Substance Use Type: does not use Exam Narrative Exam Narrative: GEN: well nourished, obese female, alert and oriented x 3, patient appears to be in mild distress. HEENT: Atraumatic, pupils are equal round reactive to light, extraocular movements are intact, nares are clear, TMs are clear with no fluid, there is no conjunctival pallor. Throat is clear without any exudates, erythema, tonsillar enlargement or uvular deviation HEART: Regular rate and rhythm without murmur, clicks, rubs. Pulses are equal in upper and lower extremities LUNGS:Lungs clear to auscultation, no wheezes, rales, crackles, chest moves symmetrically, no tachypnea or accessory muscle use. ABD:bowel sounds normal, soft, non-tender, no guarding, rebound, rigidity, no masses noted, no hepatosplenomegaly :No CVA tenderness MSCL: Non-tender, no edema bilateral lower extremities. NEURO:CN 2-12 intact, sensation normal SKIN: No rash or skin changes noted. Initial Vital Signs Initial Vital Signs: Vital Signs Temperature 98.3 F 08/07/19 10:07 Pulse Rate 82 08/07/19 10:07 Respiratory Rate 13 08/07/19 10:07 Blood Pressure 136/74 08/07/19 10:07 Pulse Oximetry 94 08/07/19 10:07 Course Orders Ordered: ED Orders 08/07/19 10:15 Basic Metabolic Panel Stat Complete Blood Count AUTO DIFF Stat Lactate (Lactic Acid) Stat Magnesium Stat NT-proBNP (BNP-Adult 18+) Stat Procalcitonin Stat Troponin & CK Cardiac Panel Stat 08/07/19 10:19 Consult to Respiratory Therapy Evaluate & Treat 08/07/19 10:20 XR chest 1V Stat 08/07/19 11:19 CT angio chest PE protocol Stat 08/07/19 12:15 Troponin & CK Cardiac Panel Stat Sodium Chloride (Normal Saline 0.9%) 1,000 mls @ 100 mls/hr IV CONT FIDELINA Last Admin: 08/07/19 11:32 Dose: 100 mls/hr Documented by: LEONIDES Discontinued Medications Hydrocodone Bitart/Acetaminophen (Greeley 5/325) 1 tab PO NOW ONE Stop: 08/07/19 14:03 Last Admin: 08/07/19 14:33 Dose: 1 tab Documented by: ZEUS Furosemide (Lasix) 40 mg IV NOW ONE Stop: 08/07/19 13:18 Last Admin: 08/07/19 13:58 Dose: 40 mg Documented by: AKINNEY Methylprednisolone (Solu-Medrol 125 Mg Vial) 125 mg IV NOW ONE Stop: 08/07/19 10:20 Last Admin: 08/07/19 10:41 Dose: 125 mg Documented by: LEONIDES Vital Signs Vital signs: Vital Signs - 8 hr 08/07/19 10:07 08/07/19 10:11 08/07/19 11:00 Temperature 98.3 F Pulse Rate 82 82 79 Respiratory Rate 13 18 12 Blood Pressure 136/74 Blood Pressure [Left Arm] 136/74 110/58 L Pulse Oximetry 94 95 94 08/07/19 11:16 08/07/19 13:24 08/07/19 14:30 Temperature 97.3 F L Pulse Rate 79 76 80 Respiratory Rate 12 21 15 Blood Pressure Blood Pressure [Left Arm] 110/58 L 140/79 132/76 Pulse Oximetry 95 95 93 MDM - SOB/Dyspnea Lab Data Attestation: I reviewed the patient's lab results. Result diagrams: 08/07/19 10:15 08/07/19 10:15 Labs: Lab Results 08/07/19 08/07/19 08/07/19 Range/Units 10:15 10:15 10:15 WBC 11.1 H (4.5-11.0) X10^3/uL RBC 4.07 (4.0-5.2) X10^6/uL Hgb 12.3 (12.0-16.0) g/dL Hct 39.2 (36-46) % MCV 96.4 (80-100) fL MCH 30.2 (26-34) PG MCHC 31.4 (30-36) % RDW 14.4 (11.6-14.8) % Plt Count 265 (150-400) X10^3/uL Neut % (Auto) 79.9 H (50-75) % Lymph % (Auto) 12.8 L (25-40) % Horry % (Auto) 5.7 (3-14) % Eos % (Auto) 1.1 L (2-4) % Baso % (Auto) 0.5 (0-2) % Neut # (Auto) 8900 H (3504-6324) /uL Lymph # (Auto) 1400 (8924-2518) /uL Horry # (Auto) 600 (0-900) /uL Eos # (Auto) 100 (0-450) /uL Baso # (Auto) 100 (0-100) /uL Sodium 141 (137-145) mmol/L Potassium 5.1 (3.4-5.1) mmol/L Chloride 99 (98-107) mmol/L Carbon Dioxide 36 H (22-32) mmol/L BUN 14 (7-17) mg/dL Creatinine 0.60 (0.52-1.04) mg/dL Estimated GFR > 60.0 (>60) mL/min BUN/Creatinine Ratio 23.3 H (6-22) Glucose 121 H (80-110) mg/dL Lactate (0.7-2.1) mmol/L Calcium 8.9 (8.4-10.2) mg/dL Magnesium 2.4 H (1.6-2.3) mg/dL Total Creatine Kinase 29 L (30-135) U/L CK-MB (CK-2) TNP CK-MB (CK-2) Rel Index TNP Troponin I 0.046 H (0.01-0.034) ng/mL NT-Pro-B Natriuret Pep 584 H (<125) pg/mL Procalcitonin < 0.05 (<0.5) ng/mL 08/07/19 08/07/19 Range/Units 10:15 12:15 WBC (4.5-11.0) X10^3/uL RBC (4.0-5.2) X10^6/uL Hgb (12.0-16.0) g/dL Hct (36-46) % MCV (80-100) fL MCH (26-34) PG MCHC (30-36) % RDW (11.6-14.8) % Plt Count (150-400) X10^3/uL Neut % (Auto) (50-75) % Lymph % (Auto) (25-40) % Horry % (Auto) (3-14) % Eos % (Auto) (2-4) % Baso % (Auto) (0-2) % Neut # (Auto) (9146-6626) /uL Lymph # (Auto) (1759-4330) /uL Horry # (Auto) (0-900) /uL Eos # (Auto) (0-450) /uL Baso # (Auto) (0-100) /uL Sodium (137-145) mmol/L Potassium (3.4-5.1) mmol/L Chloride (98-107) mmol/L Carbon Dioxide (22-32) mmol/L BUN (7-17) mg/dL Creatinine (0.52-1.04) mg/dL Estimated GFR (>60) mL/min BUN/Creatinine Ratio (6-22) Glucose (80-110) mg/dL Lactate 1.6 (0.7-2.1) mmol/L Calcium (8.4-10.2) mg/dL Magnesium (1.6-2.3) mg/dL Total Creatine Kinase 25 L (30-135) U/L CK-MB (CK-2) TNP CK-MB (CK-2) Rel Index TNP Troponin I 0.050 H (0.01-0.034) ng/mL NT-Pro-B Natriuret Pep (<125) pg/mL Procalcitonin (<0.5) ng/mL Imaging Data Chest x-ray: Radiologist's Impression: [address] [address] XRay Report Signed Patient: Shirley Mason R#: [id number] : 4Acct:[id number] Age/Sex: 64 / FDate of Service: 08/07/19 Loc: ED Accession Number: [id number] Procedure: XR chest 1V Ordering Provider: Codie Pak D.O. PROCEDURE: XR CHEST 1V INDICATIONS: SOB TECHNIQUE: One view of the chest was acquired. COMPARISON: [facility], CT, CT HIGH RESOLUTION CHEST, 08/22/2018, 13:44. [facility], CR, XR CHEST 1V, 07/18/2018, 11:18. [facility], CR, XR CHEST 1V, 10/31/2018, 20:40. [facility], CR, XR CHEST 1V, 03/24/2019, 9:04. FINDINGS: Surgical changes and devices: Postsurgical changes are again partially visualized within the lumbar spine including a fractured posterior fixation casandra. The visualized components appear similar to the prior studies. Lungs and pleura: There is slightly increased pulmonary vascular and interstitial prominence suggestive of mild edema. A peripheral nodular opacity is noted with in the left lung base, new from the prior studies. This measures up to approximately 1.3 cm. Mediastinum: Mediastinal contours appear unchanged. Heart size is normal. Bones and chest wall: No suspicious bony lesions. Overlying soft tissues appear unremarkable. IMPRESSION: 1. Increased pulmonary vascular and interstitial prominence suggestive of mild edema. 2. New peripheral nodular opacity in the left lung base. Although this may represent atelectasis or scarring, a neoplastic pulmonary nodule is not excluded. Recommend short-term followup in 4 weeks to demonstrate resolution or further evaluation with CT if clinically indicated. Dictated by: Jaime Middleton M.D. on 08/07/2019 at 10:54 Approved by: Jaime Middleton M.D. on 08/07/2019 at 10:59 CT scan - chest: Radiologist's Impression: [address] [address] [address] Scan Report Signed Patient: Shirley Mason R#: [id number] : 4Acct:[id number] Age/Sex: 64 / FDate of Service: 08/07/19 Loc: ED Accession Number: [id number] Procedure: CT angio chest PE protocol Ordering Provider: Codie Pak D.O. PROCEDURE: CT ANGIO CHEST PE PROTOCOL INDICATIONS: sob, mildly elevated trop, does not walk TECHNIQUE: After the administration of intravenous contrast, 2 mm thick sections acquired from the pulmonary apices to the posterior costophrenic angles. 3-dimensional maximum intensity projection (MIP) coronal and sagittal reformats were then acquired through the thorax. For radiation dose reduction, the following was used: automated exposure control, adjustment of mA and/or kV according to patient size. COMPARISON: [facility], CT, CT ANGIO CHEST PE PROTOCOL, 03/14/2018, 12:52. FINDINGS: Image quality: Excellent. Pulmonary arteries: Pulmonary arteries are normal in size, and demonstrate no intraluminal filling defects to suggest central pulmonary embolism. Lungs and pleura: Previous right upper lobe nodule is unchanged compared to 03/14/18. Dependent changes are present within the bases appearing most likely atelectasis. No pleural effusions or pneumothorax. Central and peripheral airways are patent. Mediastinum: Heart size is normal, without pericardial effusion. No mediastinal or hilar adenopathy. Unchanged mild aneurysmal dilation of the ascending thoracic aorta measuring 43 mm Esophagus is normal in caliber, without hiatal hernia. Bones and chest wall: No suspicious bony lesions. Ribs and thoracic spine appear intact throughout. Thyroid gland is unremarkable. No axillary or supraclavicular adenopathy. Abdomen: Visualized upper abdominal solid organs appear normal in the early arterial phase of enhancement. IMPRESSION: 1. Dependent changes at the bases bilaterally. This likely represents atelectasis. Developing pneumonia cannot be definitively excluded. 2. No pulmonary embolism. 3. Unchanged 3 mm right upper lobe pulmonary nodule compared to 03/14/18. 4. Unchanged mild aneurysmal dilation of the ascending thoracic aorta. Dictated by: Mary Mccloud M.D. on 08/07/2019 at 12:07 Approved by: Mary Mccloud M.D. on 08/07/2019 at 12:13 ECG Data Attestation: I personally reviewed and interpreted this ECG as follows: Prior ECG tracings: available for review Interpretation: Sinus rhythm with sinus arrhythmia, rate 82, P are 169 QRS of 77 QTC of 386. Patient has tall T-waves in V2 but not appreciate in other leads. Patient does not appear to have any new ST changes compared to 03/24/2019 and prior EKGs. Elevation appreciated. No depression. MDM Narrative Medical decision making narrative: Patient comes in with low O2 sat, EMS was concerned that possibly something was wrong with her trilogy machine as she immediately improved her O2 saturation once they switched her to their oxygen and she improved to normal range at 94% on her normal 2 L. Initial tropes is indeterminate but elevated from pass, BNP is elevated in the 500 range. Chest x-ray shows some increased pulmonary vascular interstitial prominence that could suggest some mild pulmonary edema and a new peripheral nodular opacity homeless short-term follow-up in the next 4 weeks. Patient's other lab work does not show major changes, renal function is at patient's typical baseline. EKG did not show any new changes. Patient is quite debilitated and states she does not really walk around so PE study was ordered with the slight elevation in her troponin. This shows no PE, some dependent atelectasis bases cannot definitively exclude pneumonia. Unchanged right upper lobe nodule. And mild unchanged aneurysmal dilation. Troponin is 0.05 on repeat in was 0.46 initially. Discussed with Estefani Marte, possibility. Plan to hold antibiotics. Also reviewed with provider and they have oxygen available at patient's care facility. Patient updated and she is comfortable with the plan, we discussed findings today. Discharge Plan Departure Patient Disposition: Home Clinical Impression: Low oxygen saturation, Pulmonary nodule, Acute dyspnea Activity Restrictions/Additional Instructions: Follow up with your care provider Estefani Rawls. She will see you in the next 24 hours. Plan is for a dose of lasix in the emergency department and patient to be re- evaluated for decision whether additional medications will be continued. All labs and imaging were noted and discussed with your care provider. There was concerned there may be malfunction with oxygen or that it was not connected to her machine. Return to the ER for new or worsening symptoms, new chest pain, shortness of breath, passing out, persistent vomiting, swelling in her extremities or other new or concerning symptoms. Prescriptions: No Action paroxetine HCl 20 mg Tablet 20 mg PO DAILY RF: 0 lidocaine [Aspercreme (lidocaine)] 4 % Adhesive Patch,Medicated 1 patch topical DAILY RF: 0 trazodone 50 mg tablet 50 mg PO BEDTIME RF: 0 Biofreeze (menthol) 4 % Gel 1 applic topical BID RF: 0 hydrocortisone 2.5 % cream 1 applic topical BID RF: 0 mirtazapine 15 mg tablet 7.5 mg PO BEDTIME RF: 0 buspirone 10 mg tablet 10 mg PO TID RF: 0 lorazepam 0.5 mg Tablet 0.5 mg PO Q6H PRN (Reason: Anxiety) Qty: 20 RF: 0 tizanidine 4 mg tablet 4 mg PO Q6H PRN (Reason: Muscle Spasm) RF: 0 hydrocodone-acetaminophen [Greeley] 5-325 mg Tablet 1 tab PO Q4H PRN (Reason: PAIN) RF: 0 loperamide 2 mg Tablet 4 mg PO PRN PRN (Reason: Loose Stool) RF: 0 Preparation H (Witch Sandra) 20 % Pads, Medicated 20 % TOPICAL DIRECTED RF: 0 atorvastatin 40 mg Tablet 40 mg PO QPM RF: 0 sennosides [senna] 8.6 mg Tablet 8.6 mg PO BID RF: 0 acetaminophen 325 mg Tablet 650 mg PO TID RF: 0 aspirin 81 mg Tablet,Delayed Release (Dr/Ec) 1 tab PO DAILY RF: 0 magnesium hydroxide [Milk of Magnesia] 400 mg/5 mL Suspension 30 ml PO DAILY PRN (Reason: Constipation) RF: 0 nystatin 100,000 unit/gram Cream 1 applic TOPICAL BID RF: 0 pregabalin [Lyrica] 75 mg Capsule 75 mg PO BID RF: 0 Referrals: Estefani Mcnamara ARNP [Primary Care Provider] -
[2019-08-07 10:27] LABS: Add Manual Diff / Slide Review NO; Basophils Absolute Auto 100 /uL (0-100); Basophils Percent Auto 0.5 % (0-2); Eosinophils Absolute Auto 100 /uL (0-450); Eosinophils Percent Auto 1.1 % (2-4); Hematocrit 39.2 % (36-46); Hemoglobin 12.3 g/dL (12.0-16.0); Lymphocytes Absolute Auto 1400 /uL (1100-4500); Lymphocytes Percent Auto 12.8 % (25-40); Mean Corpuscular HGB Conc 31.4 % (30-36); Mean Corpuscular Hemoglobin 30.2 PG (26-34); Mean Corpuscular Volume 96.4 fL (80-100); Monocytes Absolute Auto 600 /uL (0-900); Monocytes Percent Auto 5.7 % (3-14); Neutrophils Absolute Auto 8900 /uL (1500-7000); Neutrophils Percent Auto 79.9 % (50-75); Platelet Count 265 X10^3/uL (150-400); Red Blood Cell Count 4.07 X10^6/uL (4.0-5.2); Red Cell Distribution Width 14.4 % (11.6-14.8); White Blood Cell Count 11.1 X10^3/uL (4.5-11.0)
[2019-08-07] MEDS: methylPREDNISolone 125 MG/2 ML VIAL IV (10:41)
[2019-08-07 10:44] LABS: BUN Creatinine Ratio 23.3 (6-22); Blood Urea Nitrogen 14 mg/dL (7-17); Calcium 8.9 mg/dL (8.4-10.2); Carbon Dioxide 36 mmol/L (22-32); Chloride 99 mmol/L (98-107); Creatine Kinase 29 U/L (30-135); Estimated Glomerular Filt Rate > 60.0 mL/min (>60); Glucose 121 mg/dL (80-110); HEMOLYSIS 46 (0-50); Magnesium 2.4 mg/dL (1.6-2.3); Potassium 5.1 mmol/L (3.4-5.1); Sodium 141 mmol/L (137-145)
[2019-08-07 10:47] LABS: Lactate (Lactic Acid) 1.6 mmol/L (0.7-2.1)
[2019-08-07 10:56] LABS: NT-proBNP (BNP-Adult 18+) 584 pg/mL (<125); Troponin I 0.046 ng/mL (0.01-0.034)
[2019-08-07 11:00] VITALS: BP 110/58; PULSE 79; RESP 12; O2SAT 94
[2019-08-07 11:07] LABS: Procalcitonin < 0.05 ng/mL (<0.5)
[2019-08-07 11:16] VITALS: BP 110/58; PULSE 79; RESP 12; TEMP 36.3; O2SAT 95
--- NOTE | 2019-08-07 11:19 | DI.CT.S_ITS ---
PROCEDURE: CT ANGIO CHEST PE PROTOCOL INDICATIONS: sob, mildly elevated trop, does not walk TECHNIQUE: After the administration of intravenous contrast, 2 mm thick sections acquired from the pulmonary apices to the posterior costophrenic angles. 3-dimensional maximum intensity projection (MIP) coronal and sagittal reformats were then acquired through the thorax. For radiation dose reduction, the following was used: automated exposure control, adjustment of mA and/or kV according to patient size. COMPARISON: [facility], CT, CT ANGIO CHEST PE PROTOCOL, 03/14/2018, 12:52. FINDINGS: Image quality: Excellent. Pulmonary arteries: Pulmonary arteries are normal in size, and demonstrate no intraluminal filling defects to suggest central pulmonary embolism. Lungs and pleura: Previous right upper lobe nodule is unchanged compared to 03/14/18. Dependent changes are present within the bases appearing most likely atelectasis. No pleural effusions or pneumothorax. Central and peripheral airways are patent. Mediastinum: Heart size is normal, without pericardial effusion. No mediastinal or hilar adenopathy. Unchanged mild aneurysmal dilation of the ascending thoracic aorta measuring 43 mm Esophagus is normal in caliber, without hiatal hernia. Bones and chest wall: No suspicious bony lesions. Ribs and thoracic spine appear intact throughout. Thyroid gland is unremarkable. No axillary or supraclavicular adenopathy. Abdomen: Visualized upper abdominal solid organs appear normal in the early arterial phase of enhancement. IMPRESSION: 1. Dependent changes at the bases bilaterally. This likely represents atelectasis. Developing pneumonia cannot be definitively excluded. 2. No pulmonary embolism. 3. Unchanged 3 mm right upper lobe pulmonary nodule compared to 03/14/18. 4. Unchanged mild aneurysmal dilation of the ascending thoracic aorta. Dictated by: Mary Mccloud M.D. on 08/07/2019 at 12:07 Approved by: Mary Mccloud M.D. on 08/07/2019 at 12:13
[2019-08-07] MEDS: SODIUM CHLORIDE 0.9% 1,000 ML 100 ML IV (11:32)
[2019-08-07 12:31] LABS: Creatine Kinase 25 U/L (30-135)
[2019-08-07 13:24] VITALS: BP 140/79; PULSE 76; RESP 21; O2SAT 95
[2019-08-07] MEDS: FUROSEMIDE 40 MG/4 ML VIAL IV (13:58)
[2019-08-07 14:30] VITALS: BP 132/76; PULSE 80; RESP 15; O2SAT 93
[2019-08-07] MEDS: HYDROCODONE/ACET 5/325 TABLET 1 TAB PO (14:33)
== END 2019-08-07 15:15 | disposition home or self-care (01) ==
PROVIDERS: Emergency Provider Emergency Medicine; PCP Registered Nurse
DX: R79.81 Abnormal blood-gas level (principal); R91.1 Solitary pulmonary nodule; R06.00 Dyspnea, unspecified
CPT/HCPCS: 36415; 71045; 71275; 80048; 82550; 83605; 83735; 83880; 84145; 84484; 85025; 93005; 96361; 96374; 96375; 99284; 99285; J1940; J2930; Q9967

== ENCOUNTER → 2019-08-09 14:55 | Outpatient (CLI) | payer MEDICARE, OTHER, SELFPAY ==
[2018-11-01 00:30] VITALS: BMI 31.7
[2019-03-24 11:33] VITALS: PULSE 81; RESP 16; O2SAT 100
--- NOTE | 2019-08-09 | DI.RAD.S_ITS ---
PROCEDURE: XR KNEE RT 1TO2V INDICATIONS: KNEE PAIN AND SWELLING TECHNIQUE: 3 views of the knee were acquired. COMPARISON: [facility], CR, XR KNEE LT 1TO2V, 07/13/2018, 15:23. FINDINGS: Bones: No fractures or dislocations. No suspicious bony lesions. There is severe knee joint osteoarthritis at the medial compartment of the left and also at the patellofemoral joint bilaterally. Moderately severe cyst degenerative change is seen at the lateral compartment of the right knee and mild to moderate sized degeneration is seen at the medial compartment Soft tissues: No joint effusion. No suspicious soft tissue calcifications. IMPRESSION: Knee joint osteoarthritis is near severe at each patella, and also at the medial compartment on the left. It is lesser at the lateral compartment on the right. The degree of degeneration present may warrant orthopedic surgical consultation. Dictated by: Luc Oliva M.D. on 08/09/2019 at 15:57 Approved by: Luc Oliva M.D. on 08/09/2019 at 15:59
== END ==
PROVIDERS: PCP Registered Nurse; Referring Provider Registered Nurse; Visit Provider Registered Nurse
DX: M25.561 Pain in right knee (principal); M17.0 Bilateral primary osteoarthritis of knee; M25.461 Effusion, right knee
CPT/HCPCS: 73560

== ENCOUNTER → 2019-11-22 15:52 | Outpatient (CLI) | payer MEDICARE, OTHER, SELFPAY ==
[2018-11-01 00:30] VITALS: BMI 31.7
[2019-03-24 11:33] VITALS: PULSE 81; RESP 16; O2SAT 100
--- NOTE | 2019-11-22 | DI.ECHO.S_ITS ---
[facility] + [facility] +---------+ : : [address] : : : : [place], : : : : [place] [address] : : : : Phone: [phone] + [facility] Echocardiogram Report + + :Name: ADEOLA PATRICK Study Date: 11/22/2019 Height: 68 in : :[facility] Weight: 243 lb : : Gender: Female BSA: 2.2 m2 : :: 1955 Age: 64 yrs BP: 122/76 mmHg: :Reason For Study: Murmur : : Performed By: Betty Huerta : :Referring: UNSPECIFIED : + + Interpretation Summary The left ventricle is normal in size. There is moderate concentric left ventricular hypertrophy. The ejection fraction is estimated to be 60-65%. This is unchanged compared to the previous study. The right ventricle is normal in size and function. Both atria are normal in size. The aortic valve is trileaflet. The aortic valve is severely calcified. There is severely reduced leaflet mobility. There is critically severe aortic stenosis. The peak aortic velocity is 4.5 m/sec. Compared to the prior echo study, there has been no change in the severity of aortic stenosis. There is mild aortic regurgitation. There is no other significant valvular heart disease. The ascending aorta is mildly enlarged. Procedure: A two-dimensional transthoracic echocardiogram with color flow and Doppler was performed. The study quality was technically difficult. Comparison is made with the echocardiogram of 11/02/2018. Patient scanned supine and seated in wheelchair. Left Ventricle: The left ventricle is normal in size. There is moderate concentric left ventricular hypertrophy. The ejection fraction is estimated to be 60-65%. This is unchanged compared to the previous study. Right Ventricle: The right ventricle is normal in size and function. Atria: Both atria are normal in size. There is no Doppler evidence for an interatrial shunt. Mitral Valve: The mitral valve leaflets appear mildly thickened, but open well. There is mild mitral annular calcification. There is trace mitral regurgitation. Aortic Valve: The aortic valve is trileaflet. The aortic valve is severely calcified. There is severely reduced leaflet mobility. There is critically severe aortic stenosis. Best aortic valve gradients taken from suprasternal notch view. The peak aortic velocity is 4.5 m/sec. The aortic valve mean gradient is 49 mmHg. Compared to the prior echo study, there has been no change in the severity of aortic stenosis. There is mild aortic regurgitation. Tricuspid Valve: The tricuspid valve is not well visualized, but is grossly normal. There is a trace or physiologic amount of tricuspid regurgitation. Pulmonic Valve: The pulmonic valve is normal in structure and function. There is no pulmonic valvular regurgitation. There is no other significant valvular heart disease. Great Vessels: The aortic root is normal size. The ascending aorta is mildly enlarged. The inferior vena cava was not visualized. Pericardium/ Pleura There is no pericardial effusion. There is no pleural effusion. MMode/2D Measurements & Calculations LVIDd: 3.9 cm AoV Openin.97 cm LVIDs: 2.7 cm LVOT diam: 2.0 cm IVSd: 1.4 cm Ao root diam: 3.2 cm LVPWd: 1.5 cm asc Aorta Diam: 3.9 cm LV buenrostro. diameter/BSA (cm/m^2): 1.7 Ao Arch Diam (Prox Trans): 3.1 cm LV sys. diameter/BSA (cm/m^2): 1.2 FS: 29.6 % EPSS: 0.82 cm LA A2 area: 18.2 cm2 RA long axis: 4.0 cm LA A4 area: 19.1 cm2 RA area: 11.9 cm2 LA length (vol): 5.6 cm RA vol: 30.4 ml LA vol: 52.8 ml RA : 13.7 ml/m2 LA vol index: 23.8 ml/m2 RVD1 (basal): 3.2 cm TAPSE: 1.8 cm Doppler Measurements & Calculations Ao V2 max: 451.0 cm/sec LVOT Max Pradeep: 92.3 cm/sec Ao V2 mean: 321.8 cm/sec LV V1 max P.4 mmHg Ao V2 VTI: 89.8 cm LV V1 VTI: 15.0 cm Ao max P.4 mmHg Ao mean P.9 mmHg ALANA(I,D): 0.51 cm2 MV E max pradeep: 47.8 cm/sec ALANA(V,D): 0.62 cm2 MV A max pradeep: 55.2 cm/sec ALANA indexed to BSA (cm^2/m^2): 0.23 MV E/A: 0.87 sev ratio: 0.17 Med Peak E' Pradeep: 4.4 cm/sec E/E' med: 10.9 Lat Peak E' Pradeep: 8.9 cm/sec E/E' lat: 5.4 E/e' average: 8.2 MV dec time: 0.38 sec PA V2 max: 107.3 cm/sec PA V2 mean: 69.6 cm/sec PA mean P.3 mmHg SV(LVOT): 45.8 ml Reading Physician:05:53 PM
== END ==
PROVIDERS: PCP Registered Nurse; Referring Provider Registered Nurse; Visit Provider Registered Nurse
DX: I35.1 Nonrheumatic aortic (valve) insufficiency (principal); I77.89 Other specified disorders of arteries and arterioles; R01.1 Cardiac murmur, unspecified
CPT/HCPCS: 93306

== ENCOUNTER 2020-02-06 07:33 | Emergency (ER) | payer MEDICARE, OTHER, SELFPAY ==
[2018-11-01 00:30] VITALS: BMI 31.7
[2019-03-24 11:33] VITALS: PULSE 81; RESP 16; O2SAT 100
[2020-02-06] VITALS (32 sets, daily range): BP systolic 121–172; BP diastolic 67–110; PULSE 74–96; RESP 16–32; TEMP 37.7; O2SAT 87–100
--- NOTE | 2020-02-06 08:05 | DI.RAD.S_ITS ---
PROCEDURE: XR CHEST 1V INDICATIONS: dyspnea TECHNIQUE: One view of the chest was acquired. COMPARISON: [facility], CT, CT ANGIO CHEST PE PROTOCOL, 08/07/2019, 11:27. [facility], CR, XR CHEST 1V, 10/31/2018, 20:40. [facility], CR, XR CHEST 1V, 03/24/2019, 9:04. [facility], CR, XR CHEST 1V, 08/07/2019, 10:24. FINDINGS: Surgical changes and devices: Thoracolumbar fixation hardware is seen on the right. The vertical fixation casandra is fractured, as before. Lungs and pleura: An incomplete inspiratory result is noted, causing a crowded appearance to the lung markings. No focal infiltrates are seen. No pneumothorax is seen. There is trace blunting of the costophrenic angles. Interstitial prominence is seen. Mediastinum: The cardiac contours are mildly enlarged. The aorta demonstrates calcification and tortuosity. Bones and chest wall: No suspicious bony lesions. Age-appropriate bony degenerative changes are seen. Moderate levoconvex lumbar scoliosis is seen. Overlying soft tissues appear unremarkable. IMPRESSION: Limited study demonstrating trace blunting of the costophrenic angles, which may be related to small pleural effusions. Cardiomegaly and interstitial prominence can be seen. Please correlate with patient presentation, physical examination findings, and laboratory values for congestive heart failure. Postoperative and degenerative changes are seen. Dictated by: Vikas Stanley M.D. on 02/06/2020 at 8:55 Approved by: Vikas Stanley M.D. on 02/06/2020 at 9:02
[2020-02-06 08:15] LABS: Add Manual Diff / Slide Review NO; Basophils Absolute Auto 0 /uL (0-100); Basophils Percent Auto 0.2 % (0-2); Eosinophils Absolute Auto 0 /uL (0-450); Eosinophils Percent Auto 0.2 % (2-4); Hematocrit 39.1 % (36-46); Hemoglobin 12.1 g/dL (12.0-16.0); Lymphocytes Absolute Auto 600 /uL (1100-4500); Lymphocytes Percent Auto 5.9 % (25-40); Mean Corpuscular HGB Conc 30.8 % (30-36); Mean Corpuscular Hemoglobin 29.7 PG (26-34); Mean Corpuscular Volume 96.5 fL (80-100); Monocytes Absolute Auto 500 /uL (0-900); Monocytes Percent Auto 4.5 % (3-14); Neutrophils Absolute Auto 9000 /uL (1500-7000); Neutrophils Percent Auto 89.2 % (50-75); Platelet Count 266 X10^3/uL (150-400); Red Blood Cell Count 4.06 X10^6/uL (4.0-5.2); Red Cell Distribution Width 15.4 % (11.6-14.8); White Blood Cell Count 10.2 X10^3/uL (4.5-11.0)
[2020-02-06 08:17] LABS: D Dimer 463 ng/mL (<230)
[2020-02-06 08:22] LABS: Alanine Aminotransferase 11 IU/L (<35); Albumin 3.9 g/dL (3.5-5.0); Albumin Globulin Ratio 1.1 (1.0-2.8); Alkaline Phosphatase 104 U/L (38-126); Aspartate Aminotransferase 36 IU/L (14-36); Bilirubin Total 0.6 mg/dL (0.2-1.3); Blood Urea Nitrogen 26 mg/dL (7-17); Carbon Dioxide 39 mmol/L (22-32); Chloride 99 mmol/L (98-107); Estimated Glomerular Filt Rate 55.6 mL/min (>60); Globulin 3.4 g/dL (1.7-4.1); Glucose 162 mg/dL (80-110); Lipase 57 U/L (23-300); Sodium 142 mmol/L (137-145); Total Protein 7.3 g/dL (6.3-8.2)
[2020-02-06 08:26] LABS: HEMOLYSIS 65 (0-50)
[2020-02-06 08:33] LABS: NT-proBNP (BNP-Adult 18+) 5560 pg/mL (<125)
[2020-02-06 08:34] LABS: Lactate (Lactic Acid) 1.8 mmol/L (0.7-2.1)
[2020-02-06 08:39] LABS: Procalcitonin < 0.05 ng/mL (<0.5)
--- NOTE | 2020-02-06 08:44 | ED_ITS ---
HPI - SOB/Dyspnea General Chief Complaint: Shortness of Breath/Dyspnea Stated Complaint: Low o2 sats Time Seen by Provider: 02/06/20 07:43 Source: EMS Mode of arrival: EMS Limitations: altered mental status History of Present Illness HPI Narrative: 64 yo woman with history significant for chronic hypoxic/hypercapnic/hypoventilatory respiratory failure with home oxygen in the typical 2-4 L range and home CPAP at night, diabetes, cardiomyopathy, CVA, posterior reversible encephalopathy syndrome, insomnia and tardive dyskinesia who presents to the ER from [facility] with increasing shortness of breath, weakness, confusion and increased tremor. Medics noted that she was on her own BiPAP machine with 4 L of oxygen and oxygen saturations were at 70% consistent with what [facility] staff had noted as well As she is coming from [facility] there is little other information available and patient is moderately confused. She knows that she is in the emergency room but could not oriented to other events Review of records indicates multiple prior presentations with similar clinical findings and concerns. POLST form indicates full code with limited intervention and no intubation Related Data Home Medications Medication Instructions Recorded Confirmed acetaminophen 650 mg PO TID 03/14/18 08/07/19 aspirin 1 tab PO DAILY 03/14/18 08/07/19 atorvastatin 40 mg PO QPM 03/14/18 08/07/19 magnesium hydroxide [Milk of 30 ml PO DAILY PRN 03/14/18 08/07/19 Magnesia] nystatin 1 applic TOPICAL BID 03/14/18 08/07/19 pregabalin [Lyrica] 75 mg PO BID 03/14/18 08/07/19 sennosides [senna] 8.6 mg PO BID 03/14/18 08/07/19 paroxetine HCl 20 mg PO DAILY 07/18/18 08/07/19 Biofreeze (menthol) 1 applic TOPICAL BID 10/31/18 08/07/19 buspirone 10 mg PO TID 10/31/18 08/07/19 hydrocortisone 1 applic TOPICAL BID 10/31/18 08/07/19 lidocaine [Aspercreme (lidocaine)] 1 patch TOPICAL DAILY 10/31/18 08/07/19 mirtazapine 7.5 mg PO BEDTIME 10/31/18 08/07/19 trazodone 50 mg PO BEDTIME 10/31/18 08/07/19 hydrocodone-acetaminophen [Henniker] 1 tab PO Q4H PRN 03/24/19 08/07/19 tizanidine 4 mg PO Q6H PRN 03/24/19 08/07/19 loperamide 4 mg PO PRN PRN 08/07/19 08/07/19 witch sandra [Preparation H (Witch 20 % TOPICAL DIRECTED 08/07/19 08/07/19 Sandra)] Previous Rx's Medication Instructions Recorded lorazepam 0.5 mg PO Q6H PRN #20 tab 11/02/18 Allergies Allergy/AdvReac Type Severity Reaction Status Date / Time bee venom protein (honey bee) Allergy unknown Verified 07/18/18 18:50 Sulfa (Sulfonamide Allergy Verified 08/07/19 10:11 Antibiotics) sulfabenzamide Allergy Verified 08/07/19 10:11 Review of Systems Review of Systems ROS Unobtainable: Unobtainable due to medical condition Patient History Medical History Anxiety (Acute) Arthritis of knee (Chronic) Back pain (Chronic) Cardiomyopathy (Acute) Chronic respiratory failure with hypoxia and hypercapnia (Acute) COPD (chronic obstructive pulmonary disease) (Acute) Diabetes (Acute) Fusion of lumbar spine (Acute) Hypoventilation (Acute) Insomnia (Acute) Lacunar infarction (Acute) Posterior reversible encephalopathy syndrome (Acute) Scoliosis (Chronic) Tardive dyskinesia (Acute) Surgical History History of spinal surgery (Acute) Family History Mother Cancer Father No problems noted. Brother Heart attack Social History household members: none housing: assisted living facility Smoking Status: Never smoker alcohol intake: former Smoking Status: Never smoker alcohol intake frequency: other Substance Use Type: does not use Exam Narrative Exam Narrative: General: Morbidly obese, confused but trying to be cooperative HEENT: No trauma to the head, dry mucous membranes with crusted lips, no nasal discharge Neck: No cervical adenopathy or jugular venous distension. Supple Respiratory: By basilar crackles with rhonchi in the left base no significant wheeze. Shallow air movement and confused enough that she is having trouble following directions to take deep breaths Cardiac: 4/6 systolic ejection murmur, no S3 regular rate Abdomen: Obese, soft nontender nondistended. No flank pain Skin: Moderately perfused with no obvious trauma or abrasions appreciated Neurologic: Confusion, picking at bed clothes. And some difficulty following direct commands Extremities: 1+ bilateral lower extremity edema Psych: Altered mental status with confusion Initial Vital Signs Initial Vital Signs: Vital Signs Pulse Rate 93 H 02/06/20 07:53 Respiratory Rate 17 02/06/20 07:53 Pulse Oximetry 93 02/06/20 07:53 Course Orders Ordered: ED Orders 02/06/20 07:45 Complete Blood Count AUTO DIFF Stat Comprehensive Metabolic Panel Stat D Dimer Stat Lipase Stat Magnesium Stat NT-proBNP (BNP-Adult 18+) Stat Procalcitonin Stat Troponin I Stat 02/06/20 08:05 XR chest 1V Stat 02/06/20 08:08 Arterial Blood Gas Stat 02/06/20 08:10 Lactate (Lactic Acid) Stat 02/06/20 08:33 BiPAP Ventilatory Support RT PROTOCOL 02/06/20 08:40 Blood Culture Stat 02/06/20 11:30 Urinalysis and Microscopic Stat 02/06/20 11:58 Troponin I Stat Heparin Sodium/Dextrose (Heparin Drip) 25,000 unit in 500 mls @ 20 mls/hr IV CONT FIDELINA; Protocol Last Admin: 02/06/20 09:49 Dose: 1,000 units/hr, 20 mls/hr Documented by: DEEPTHI Discontinued Medications Aspirin (Aspirin Chew) 324 mg PO NOW ONE Stop: 02/06/20 09:06 Last Admin: 02/06/20 09:49 Dose: 324 mg Documented by: DEEPTHI Furosemide (Lasix) 40 mg IV NOW ONE Stop: 02/06/20 09:06 Last Admin: 02/06/20 09:47 Dose: 40 mg Documented by: DEEPTHI Heparin Sodium (Porcine) (Heparin) 7,500 unit IV NOW ONE Stop: 02/06/20 09:14 Last Admin: 02/06/20 09:42 Dose: 7,500 unit Documented by: DEEPTHI Ketamine HCl (Ketalar) 11.748 mg 0.1 mg/kg (11.748 mg) IV NOW ONE Stop: 02/06/20 08:55 Last Admin: 02/06/20 09:00 Dose: 11.748 mg Documented by: DEEPTHI Lorazepam (Ativan) 0.5 mg IV NOW ONE Stop: 02/06/20 08:55 Last Admin: 02/06/20 09:37 Dose: 0.5 mg Documented by: DEEPTHI Lorazepam (Ativan) 1 mg IV NOW ONE Stop: 02/06/20 10:23 Last Admin: 02/06/20 10:26 Dose: 1 mg Documented by: DEEPTHI Nitroglycerin (Nitro-Bid) 1 inch TOP NOW ONE Stop: 02/06/20 09:06 Last Admin: 02/06/20 09:48 Dose: 1 inch Documented by: DEEPTHI Vital Signs Vital signs: Vital Signs - 8 hr 02/06/20 07:53 02/06/20 07:54 02/06/20 08:01 Temperature 99.8 F H Pulse Rate 93 H 91 H 95 H Respiratory Rate 17 16 26 H Blood Pressure 150/88 H 152/94 H Pulse Oximetry 93 99 98 02/06/20 08:15 02/06/20 08:30 02/06/20 08:31 Temperature Pulse Rate 91 H 90 92 H Respiratory Rate 22 Blood Pressure 136/67 172/91 H Pulse Oximetry 92 90 L 02/06/20 09:00 02/06/20 09:01 02/06/20 09:16 Temperature Pulse Rate 88 87 87 Respiratory Rate 17 Blood Pressure 166/110 H 133/85 Pulse Oximetry 87 L 87 L 90 L 02/06/20 09:30 02/06/20 10:00 02/06/20 10:13 Temperature Pulse Rate 90 92 H 95 H Respiratory Rate 31 H 24 24 Blood Pressure 151/91 H Pulse Oximetry 94 95 95 02/06/20 10:30 02/06/20 11:00 02/06/20 11:24 Temperature Pulse Rate 96 H 88 83 Respiratory Rate 21 22 24 Blood Pressure 135/89 Pulse Oximetry 98 100 02/06/20 11:31 02/06/20 11:58 02/06/20 12:00 Temperature Pulse Rate 94 H 84 86 Respiratory Rate 32 H 26 H Blood Pressure 140/106 H 129/78 134/81 Pulse Oximetry 100 99 99 02/06/20 12:15 02/06/20 12:30 02/06/20 12:31 Temperature Pulse Rate 84 83 81 Respiratory Rate 27 H 27 H 23 Blood Pressure 131/84 132/70 Pulse Oximetry 98 99 99 MDM - SOB/Dyspnea Medical Records Attestation: I reviewed the patient's medical records. Lab Data Attestation: I reviewed the patient's lab results. Lab results narrative: No significant leukocytosis and normal red cell counts at this time ABG with mild hypercarbic and hypoxic respiratory failure Significantly elevated troponin at 0.753 with elevated proBNP Procalcitonin is normal Clinical picture is building to that of worsening congestive heart failure with hypoxic hypercarbic respiratory failure and acute coronary syndrome Result diagrams: 02/06/20 07:45 02/06/20 07:45 Labs: Lab Results 02/06/20 02/06/20 02/06/20 Range/Units 07:45 07:45 07:45 WBC 10.2 (4.5-11.0) X10^3/uL RBC 4.06 (4.0-5.2) X10^6/uL Hgb 12.1 (12.0-16.0) g/dL Hct 39.1 (36-46) % MCV 96.5 (80-100) fL MCH 29.7 (26-34) PG MCHC 30.8 (30-36) % RDW 15.4 H (11.6-14.8) % Plt Count 266 (150-400) X10^3/uL Neut % (Auto) 89.2 H (50-75) % Lymph % (Auto) 5.9 L (25-40) % [place] % (Auto) 4.5 (3-14) % Eos % (Auto) 0.2 L (2-4) % Baso % (Auto) 0.2 (0-2) % Neut # (Auto) 9000 H (8999-7436) /uL Lymph # (Auto) 600 L (6739-6850) /uL [place] # (Auto) 500 (0-900) /uL Eos # (Auto) 0 (0-450) /uL Baso # (Auto) 0 (0-100) /uL D-Dimer 463 H (<230) ng/mL ABG pH (7.35-7.45) ABG pCO2 (35-45) mmHg ABG pO2 (80-100) mmHg ABG HCO3 (22-26) mmol/L ABG Total CO2 (21-31) mmol/L ABG O2 Saturation (95-100) % ABG Base Excess (-2-2) mmol/L FiO2 Sodium 142 (137-145) mmol/L Potassium 6.0 H (3.4-5.1) mmol/L Chloride 99 (98-107) mmol/L Carbon Dioxide 39 H (22-32) mmol/L BUN 26 H (7-17) mg/dL Creatinine 1.00 (0.52-1.04) mg/dL Estimated GFR 55.6 L (>60) mL/min BUN/Creatinine Ratio 26.0 H (6-22) Glucose 162 H (80-110) mg/dL Lactate (0.7-2.1) mmol/L Calcium 9.0 (8.4-10.2) mg/dL Magnesium 2.0 (1.6-2.3) mg/dL Total Bilirubin 0.6 (0.2-1.3) mg/dL AST 36 (14-36) IU/L ALT 11 (<35) IU/L Alkaline Phosphatase 104 (38-126) U/L Troponin I 0.753 H* (0.01-0.034) ng/mL NT-Pro-B Natriuret Pep 5560 H (<125) pg/mL Total Protein 7.3 (6.3-8.2) g/dL Albumin 3.9 (3.5-5.0) g/dL Globulin 3.4 (1.7-4.1) g/dL Albumin/Globulin Ratio 1.1 (1.0-2.8) Lipase 57 (23-300) U/L Procalcitonin (<0.5) ng/mL Urine Color Urine Appearance Urine pH (4.5-8.0) Ur Specific [place] (1.000-1.035) Urine Protein (Negative) Urine Glucose (UA) (Negative) g/dL Urine Ketones (NEGATIVE) Urine Occult Blood (Negative) Urine Nitrate (Negative) Urine Bilirubin (NEGATIVE) Urine Urobilinogen (0.2) E.U./dL Ur Leukocyte Esterase (NEGATIVE) Urine RBC (0-5/HPF) Urine WBC (0-5/HPF) Ur Squamous Epith Cells (0-5/HPF) Amorphous Sediment Urine Bacteria (None) Hyaline Casts (None) Urine Mucus (Negative) Ur Culture Indicated? COVID-19 PCR (Negative) 02/06/20 02/06/20 02/06/20 Range/Units 07:45 08:08 08:10 WBC (4.5-11.0) X10^3/uL RBC (4.0-5.2) X10^6/uL Hgb (12.0-16.0) g/dL Hct (36-46) % MCV (80-100) fL MCH (26-34) PG MCHC (30-36) % RDW (11.6-14.8) % Plt Count (150-400) X10^3/uL Neut % (Auto) (50-75) % Lymph % (Auto) (25-40) % [place] % (Auto) (3-14) % Eos % (Auto) (2-4) % Baso % (Auto) (0-2) % Neut # (Auto) (1291-2194) /uL Lymph # (Auto) (4029-8965) /uL [place] # (Auto) (0-900) /uL Eos # (Auto) (0-450) /uL Baso # (Auto) (0-100) /uL D-Dimer (<230) ng/mL ABG pH 7.29 L* (7.35-7.45) ABG pCO2 77.8 H* (35-45) mmHg ABG pO2 61 L (80-100) mmHg ABG HCO3 38 H (22-26) mmol/L ABG Total CO2 40 H (21-31) mmol/L ABG O2 Saturation 86 L (95-100) % ABG Base Excess 11.0 H (-2-2) mmol/L FiO2 0.40 Sodium (137-145) mmol/L Potassium (3.4-5.1) mmol/L Chloride (98-107) mmol/L Carbon Dioxide (22-32) mmol/L BUN (7-17) mg/dL Creatinine (0.52-1.04) mg/dL Estimated GFR (>60) mL/min BUN/Creatinine Ratio (6-22) Glucose (80-110) mg/dL Lactate 1.8 (0.7-2.1) mmol/L Calcium (8.4-10.2) mg/dL Magnesium (1.6-2.3) mg/dL Total Bilirubin (0.2-1.3) mg/dL AST (14-36) IU/L ALT (<35) IU/L Alkaline Phosphatase (38-126) U/L Troponin I (0.01-0.034) ng/mL NT-Pro-B Natriuret Pep (<125) pg/mL Total Protein (6.3-8.2) g/dL Albumin (3.5-5.0) g/dL Globulin (1.7-4.1) g/dL Albumin/Globulin Ratio (1.0-2.8) Lipase (23-300) U/L Procalcitonin < 0.05 (<0.5) ng/mL Urine Color Urine Appearance Urine pH (4.5-8.0) Ur Specific [place] (1.000-1.035) Urine Protein (Negative) Urine Glucose (UA) (Negative) g/dL Urine Ketones (NEGATIVE) Urine Occult Blood (Negative) Urine Nitrate (Negative) Urine Bilirubin (NEGATIVE) Urine Urobilinogen (0.2) E.U./dL Ur Leukocyte Esterase (NEGATIVE) Urine RBC (0-5/HPF) Urine WBC (0-5/HPF) Ur Squamous Epith Cells (0-5/HPF) Amorphous Sediment Urine Bacteria (None) Hyaline Casts (None) Urine Mucus (Negative) Ur Culture Indicated? COVID-19 PCR (Negative) 02/06/20 02/06/20 02/06/20 Range/Units 09:12 11:30 11:58 WBC (4.5-11.0) X10^3/uL RBC (4.0-5.2) X10^6/uL Hgb (12.0-16.0) g/dL Hct (36-46) % MCV (80-100) fL MCH (26-34) PG MCHC (30-36) % RDW (11.6-14.8) % Plt Count (150-400) X10^3/uL Neut % (Auto) (50-75) % Lymph % (Auto) (25-40) % [place] % (Auto) (3-14) % Eos % (Auto) (2-4) % Baso % (Auto) (0-2) % Neut # (Auto) (1029-7460) /uL Lymph # (Auto) (9999-2970) /uL [place] # (Auto) (0-900) /uL Eos # (Auto) (0-450) /uL Baso # (Auto) (0-100) /uL D-Dimer (<230) ng/mL ABG pH (7.35-7.45) ABG pCO2 (35-45) mmHg ABG pO2 (80-100) mmHg ABG HCO3 (22-26) mmol/L ABG Total CO2 (21-31) mmol/L ABG O2 Saturation (95-100) % ABG Base Excess (-2-2) mmol/L FiO2 Sodium (137-145) mmol/L Potassium (3.4-5.1) mmol/L Chloride (98-107) mmol/L Carbon Dioxide (22-32) mmol/L BUN (7-17) mg/dL Creatinine (0.52-1.04) mg/dL Estimated GFR (>60) mL/min BUN/Creatinine Ratio (6-22) Glucose (80-110) mg/dL Lactate (0.7-2.1) mmol/L Calcium (8.4-10.2) mg/dL Magnesium (1.6-2.3) mg/dL Total Bilirubin (0.2-1.3) mg/dL AST (14-36) IU/L ALT (<35) IU/L Alkaline Phosphatase (38-126) U/L Troponin I 3.750 H* (0.01-0.034) ng/mL NT-Pro-B Natriuret Pep (<125) pg/mL Total Protein (6.3-8.2) g/dL Albumin (3.5-5.0) g/dL Globulin (1.7-4.1) g/dL Albumin/Globulin Ratio (1.0-2.8) Lipase (23-300) U/L Procalcitonin (<0.5) ng/mL Urine Color Yellow Urine Appearance Clear Urine pH 5.0 (4.5-8.0) Ur Specific [place] >=1.030 H (1.000-1.035) Urine Protein 2+ H (Negative) Urine Glucose (UA) Negative (Negative) g/dL Urine Ketones Trace H (NEGATIVE) Urine Occult Blood 1+ H (Negative) Urine Nitrate Negative (Negative) Urine Bilirubin Negative (NEGATIVE) Urine Urobilinogen 0.2 (0.2) E.U./dL Ur Leukocyte Esterase Negative (NEGATIVE) Urine RBC 1-5/hpf (0-5/HPF) Urine WBC 1-5/hpf (0-5/HPF) Ur Squamous Epith Cells 1-5 /hpf (0-5/HPF) Amorphous Sediment 2+ Urine Bacteria Occasional (0-1) D (None) Hyaline Casts 1-5/lpf (None) Urine Mucus 3+ H D (Negative) Ur Culture Indicated? Cult not indicated COVID-19 PCR Negative (Negative) ABG Data ABG results: 7.29/77/61 86% oxygen saturation 6 L nasal cannula oxygen Attestation: I personally reviewed and interpreted this ABG as follows: Interpretation: Mild acidosis with hypercarbia and hypoxia Imaging Data Chest x-ray: Radiologist's Impression: IMPRESSION: Limited study demonstrating trace blunting of the costophrenic angles, which may be related to small pleural effusions. Cardiomegaly and interstitial prominence can be seen. Please correlate with patient presentation, physical examination findings, and laboratory values for congestive heart failure. Postoperative and degenerative changes are seen. Dictated by: Vikas Stanley M.D. on 02/06/2020 at 8:55 ECG Data Attestation: I personally reviewed and interpreted this ECG as follows: Interpretation: Sinus rhythm at a rate of [address] depressions slipped T-waves without acute ST elevation Normal axis, normal intervals Significantly change from comparison EKG August 07, 2019 [facility] Narrative Medical decision making narrative: 64-year-old woman with history of chronic respiratory issues and multiple admissions in the ER visits for same. On exam she is confused hypercarbic hypoxic slight increase tremor no fever question of increased rhonchi and crackles. Labs imaging, Webb id and urine samples are all obtained. Without fever at this point sepsis is certainly within the differential but not 1. Antibiotics and fluids will not be initiated certainly concern for congestive heart failure as well. She is placed in negative pressure airway room and full airborne precautions are initiated. BiPAP is initiated an ABG is ordered. 855 am increasing agitation and not allowing BiPAP. Will try 0.1 per kilos mg sub dissociative dose of ketamine to see if we can calm the agitation while or adjusting respiratory parameters to try to increase her oxygenation slightly. Currently saturations are in the 87% range on 4-6 L as she is willing to t olerate. 1020 still significantly agitated. The low-dose ketamine and 0.5 mg Ativan have not be helpful. She just chewed off her finger oxygen saturation probe and still willing to allow BiPAP. Covid results are still pending so she remains in airborne isolation with 6 L of oxygen in place. Will try an additional 1 mg of IV Ativan and see if for able to get her comfortable enough to tolerate her BiPAP. 1100 NEGATIVE Covid 1237 tolerating CPAP better. 2nd trop increased to 3.75 700 urine out 1:23 Dr Lara, hospitalist at [facility]. Except admission Critical Care Time Critical Care Time Critical Care Time: Yes Total Critical Care Time: 48 Attestation: Critical care time is separate from other billable procedures. This critical care time includes consultation with family and other consulting doctors, review of records, and interpretation of data from labs, EKGs and imaging as well as managements of acute heart failure, respiratory failure, Neurologic failure Discharge Plan Departure Patient Disposition: [facility] Clinical Impression: Acute on chronic respiratory failure with hypoxia and hypercapnia, Acute non-ST elevation myocardial infarction (NSTEMI), Acute alteration in mental status Congestive heart failure Qualifiers: Heart failure type: combined systolic and diastolic Heart failure chronicity: acute on chronic Qualified Code(s): I50.43 - Acute on chronic combined systolic (congestive) and diastolic (congestive) heart failure Prescriptions: No Action paroxetine HCl 20 mg Tablet 20 mg PO DAILY RF: 0 lidocaine [Aspercreme (lidocaine)] 4 % Adhesive Patch,Medicated 1 patch topical DAILY RF: 0 trazodone 50 mg tablet 50 mg PO BEDTIME RF: 0 Biofreeze (menthol) 4 % Gel 1 applic topical BID RF: 0 hydrocortisone 2.5 % cream 1 applic topical BID RF: 0 mirtazapine 15 mg tablet 7.5 mg PO BEDTIME RF: 0 buspirone 10 mg tablet 10 mg PO TID RF: 0 lorazepam 0.5 mg Tablet 0.5 mg PO Q6H PRN (Reason: Anxiety) Qty: 20 RF: 0 tizanidine 4 mg tablet 4 mg PO Q6H PRN (Reason: Muscle Spasm) RF: 0 hydrocodone-acetaminophen [Henniker] 5-325 mg Tablet 1 tab PO Q4H PRN (Reason: PAIN) RF: 0 loperamide 2 mg Tablet 4 mg PO PRN PRN (Reason: Loose Stool) RF: 0 Preparation H (Codie Hernadez) 20 % Pads, Medicated 20 % TOPICAL DIRECTED RF: 0 atorvastatin 40 mg Tablet 40 mg PO QPM RF: 0 sennosides [senna] 8.6 mg Tablet 8.6 mg PO BID RF: 0 acetaminophen 325 mg Tablet 650 mg PO TID RF: 0 aspirin 81 mg Tablet,Delayed Release (Dr/Ec) 1 tab PO DAILY RF: 0 magnesium hydroxide [Milk of Magnesia] 400 mg/5 mL Suspension 30 ml PO DAILY PRN (Reason: Constipation) RF: 0 nystatin 100,000 unit/gram Cream 1 applic TOPICAL BID RF: 0 pregabalin [Lyrica] 75 mg Capsule 75 mg PO BID RF: 0 Referrals: Estefani Mcnamara ARNP [Primary Care Provider] -
[2020-02-06 08:59] LABS: Troponin I 0.753 ng/mL (0.01-0.034)
[2020-02-06] MEDS: KETAMINE 500 MG/5 ML INJ 11.748 MG IV (09:00)
[2020-02-06] MEDS: LORazepam 2 MG/ML INJ 0.5 MG IV (09:37)
[2020-02-06] MEDS: HEPARIN 5,000 UNIT/ML VIAL 7500 UNIT IV (09:42)
[2020-02-06 09:44] LABS: pH ABG 7.29 (7.35-7.45)
[2020-02-06 09:45] LABS: HCO3 ABG 38 mmol/L (22-26); Oxygen Saturation ABG 86 % (95-100); PCO2 ABG 77.8 mmHg (35-45); PO2 ABG 61 mmHg (80-100); TCO2 ABG 40 mmol/L (21-31)
[2020-02-06] MEDS: FUROSEMIDE 40 MG/4 ML VIAL IV (09:47)
[2020-02-06] MEDS: NITROGLYCERIN OINT 1 INCH/GM OINT...G. TOP (09:48)
[2020-02-06] MEDS: ASPIRIN 81 MG CHEW TAB 324 MG PO (09:49)
[2020-02-06] MEDS: HEPARIN DRIP 25,000 UNIT/500 ML IV.SOLN 20 UNIT IV (09:49)
[2020-02-06] MEDS: LORazepam 2 MG/ML INJ 1 MG IV ×2 (10:26→13:59)
[2020-02-06 11:00] LABS: COVID19 -Nasal RAPID Negative (Negative)
[2020-02-06 11:36] LABS: Appearance Urine UA CLEAR; Bilirubin Urine UA NEGATIVE (NEGATIVE); Color Urine UA YELLOW; Glucose Urine UA NEGATIVE (Negative); Ketones Urine UA TRACE (NEGATIVE); Leukocyte Esterase Urine UA NEGATIVE (NEGATIVE); Nitrite Urine UA NEGATIVE (Negative); Occult Blood Urine UA 1+ (Negative); Protein Urine UA 2+ (Negative); Specific Gravity Urine UA >=1.030 (1.000-1.035); Urobilinogen Urine UA 0.2 E.U./dL (0.2)
[2020-02-06 11:46] LABS: RBC Urine 1-5/HPF (0-5/HPF); Squamous Epithelial Cell Urine 1-5 /HPF (0-5/HPF); WBC Urine 1-5/HPF (0-5/HPF)
[2020-02-06 11:47] LABS: Amorphous Sediment Urine 2+; Bacteria Urine Occasional (0-1); Culture Indicated Urine Cult Not Indicated; Hyaline Casts Urine 1-5/LPF; Mucus Urine 3+ (Negative)
--- NOTE | 2020-02-20 11:51 | PC.NURSE ---
Late entry, Patient had Heparin drip infusing upon transfer to [facility] at 1509
== END 2020-02-06 15:10 | disposition short-term general hospital (02) ==
PROVIDERS: Emergency Provider Emergency Medicine; PCP Registered Nurse
DX: I21.4 Non-ST elevation (NSTEMI) myocardial infarction (principal); I50.43 Acute on chronic combined systolic (congestive) and diastolic (congestive) heart failure; J96.21 Acute and chronic respiratory failure with hypoxia; R41.82 Altered mental status, unspecified; R45.1 Restlessness and agitation
CPT/HCPCS: 36415; 36600; 51701; 71045; 80053; 81001; 82805; 83605; 83690; 83735; 83880; 84145; 84484; 85025; 85379; 87040; 87635; 93005; 94660; 96365; 96366; 96375; 96376; 99285; 99291; 99292; J1644; J1940; J2060